=== PATIENT | male | born 1950 | race Caucasian/White ===

== ENCOUNTER → 2017-07-30 | Outpatient (CLI) | payer BC, MEDICARE ==
[~2017-07-30] MED LIST: ALBUTEROL0.09 MG/A2 INH; AMARYL4 MG; AMARYL4 MG PO; ASCRIPTIN ENTER81 MG PO; ATIVAN0.5 MG PO; BYETTA10 MCG/0.0; BYETTA5 MCG/0.02 PO; CARTIA XT120 MG PO; CARTIA XT180 MG PO; CEPHALEXIN500 M1 PO; COUMADIN6 M2 PO; COZAAR50 M1 PO; COZAAR50 MG; COZAAR50 MG PO; Cimetidine300 MG PO; DUONEB 3 MG/3 ML3 M1 NEB; EC NAPROSYN500 MG PO; GLUCOVANCE 5 MG1 TAB PO; GLYBURIDE5 MG PO; IBUPROFEN600 MG PO; KLOR-CON 88 ME1 PO; LASIX40 MG PO; LEVAQUIN500 M2 PO; LEVEMIR10 ML SC; LEVEMIR100 U/ML SC; LODINE400 MG PO; MAXIDE PO; MAXZIDE 25 MG-31 TAB PO; METFORMIN500 MG PO; MOTRIN 600 MG E4 TAB PO; NOVOLOG1 UNIT/0.0 SC; PROTONIX40 MG PO; Septra Ds 800 M1 TAB PO; TOPROL XL25 MG PO; ULTRAM50 MG PO; VIBRAMYCIN100 MG PO; VICODIN 5/500 505 MG PO; VICODIN ES 7501 TA1; VICODIN ES 7501 TAB PO; WARFARIN SOD5 MG PO; ZOCOR20 MG; ZOCOR20 MG PO; [UNRECOGNIZED DRUG - OTHER]; [UNRECOGNIZED DRUG - OTHER] PO
[2017-07-30 15:53] LABS: INTERNATIONAL NORM RATIO 1.1 (2.0-3.5)
== END | disposition home or self-care (01) ==
LOC: LAB 14:47
PROVIDERS: Internal Medicine
DX: I48.91 Unspecified atrial fibrillation (principal)

== ENCOUNTER 2017-11-19 12:35 | Emergency (ER) | payer BC, MEDICARE ==
[~2017-11-19] VITALS: Ht 185.4 cm; Wt 124.3 kg
[2017-11-19 12:54] VITALS: BP 124/58
[2017-11-19] MEDS ORDERED: IBUPROFEN IB200 M1 PO (13:00)
[2017-11-19] MEDS ORDERED: WARFARIN SODIUM1 MG PO (13:02)
[2017-11-19] MEDS ORDERED: MIRALAX POWDER17 G1 PO (14:37)
== END 2017-11-19 14:45 | disposition home or self-care (01) ==
LOC: ED 12:35
DX: K59.00 Constipation, unspecified (principal); Z79.899 Other long term (current) drug therapy; Z79.82 Long term (current) use of aspirin; Z79.84 Long term (current) use of oral hypoglycemic drugs; Z79.4 Long term (current) use of insulin; Z79.01 Long term (current) use of anticoagulants

== ENCOUNTER 2018-02-05 22:29 | Inpatient (IN) | payer MEDICARE, BC ==
[~2018-02-05] VITALS: Ht 193 cm; Wt 123.9 kg
--- NOTE | ~2018-02-05 | PROC NOTE ---
[place], [place] PROCEDURE NOTE NAME: ANNEL BABCOCK UNIT #: [id number] ROOM: 407 DOCTOR: SOFI MENG MD BIRTHDATE: [birth year] DOS: 02/11/2018 NILTON-GUIDED CARDIOVERSION AGE: 67. SEX: Male. PREPROCEDURE DIAGNOSIS: Atrial flutter with 2:1 block. PROCEDURE: Cardioversion ____ for arrhythmia control. Prior tests include anticoagulated. PRIMARY PROCEDURE: Written informed consent was obtained prior to the procedure. The NILTON was performed under stable fasting conditions. Self adhesive anterior/posterior defibrillation pads were applied. The defibrillation was performed to deliver energy in a synchronized fashion with the EKG. The patient was set up for monitoring of surface EKG and pulse oximetry continuously. Blood pressure was monitored with automatic cuff measurements. Supplemental oxygen was administered. The procedure was performed under anesthesia by Anesthesiology. After ensuring adequate anesthesia, direct current cardioversion was performed by delivering 200 joules of direct current delivered in a synchronized fashion. RESULTS: Successful cardioversion to sinus rhythm and confirmed on the rhythm strip. COMPLICATIONS: None. The patient was monitored until awake and vital signs remained stable. Sofi Meng MD CM:PROCNOTE:PROCEDURE NOTE 1152 1716 SOFI MENG MD
--- NOTE | ~2018-02-05 | CON ---
[place], [place] REPORT OF CONSULTATION NAME: ANNEL BABCOCK UNIT #: [id number] ROOM: 407 DOCTOR: ANNEL DAVENPORT MD BIRTHDATE: [birth year] DOS: 02/06/2018 REASON FOR CONSULTATION: Atrial fibrillation with rapid ventricular response and heart failure. HISTORY OF PRESENT ILLNESS: The patient is a 67-year-old man who reports that he was initially diagnosed as having heart disease in 1996 when he presented with chest pain and was found to have evidence for myocardial infarction. He was sent to the [facility] in [place], [place] where catheterization reportedly did not show any significant disease. He was treated medically. Subsequently, he did develop atrial fibrillation around 2013. He has been maintained on warfarin anticoagulation, followed by Dr. Miles since that time. The patient does not followed routinely with a label cutter. He presents to the hospital on this occasion because of worsening dyspnea, cough and possible bronchitis. Associated with this he has had increased swelling in his feet, orthopnea and rib pain with deep breathing and coughing. He denies a productive cough and denies fevers or chills. He does often sweat heavily, but this is not new. Since he has been in the hospital, he has been treated for acute bronchitis and states that he is feeling better. His monitor has showed atrial fibrillation and flutter with a rapid ventricular response and he has clinical evidence for congestive heart failure. PAST MEDICAL HISTORY: Includes: 1. Myocardial infarction in 1996. The patient managed medically. 2. Diabetes mellitus. 3. Chronic renal insufficiency. 4. Obstructive lung disease. 5. Atrial fibrillation documented in 2013. 6. Essential hypertension. 7. Former smoker. The patient has not had cigarettes or alcohol in 4 years. 8. History of horseshoe kidney. 9. Chronic renal insufficiency. 10. Most recent myocardial perfusion study done on 06/25/2014 showed normal perfusion with an ejection fraction of 71%. 11. Most recent echocardiogram done on 06/22/2014 showed aortic root dilation with left ventricular hypertrophy present. Left ventricular and valve functions were felt to be normal. 12. Medication noncompliance. The patient's INR was 0.9 on admission and he admits that he does not take it always as prescribed. MEDICATIONS PRIOR TO ADMISSION: Albuterol 2 puffs q. 6 hours p.r.n., aspirin 81 mg per day, azithromycin, Z-HAYLIE 250 mg daily, furosemide 40 mg daily, glyburide 5 mg at breakfast and supper, ibuprofen 600 mg b.i.d. p.r.n., losartan 50 mg daily, metformin 500 mg b.i.d., metoprolol succinate 25 mg daily, potassium 8 mEq daily, prednisone on a tapering dose schedule, tramadol 50 mg b.i.d., warfarin 6 mg daily, Levemir insulin 35 units subcutaneously in the evening and 20 units subcutaneously in the morning. [place], [place] REPORT OF CONSULTATION NAME: ANNEL BABCOCK UNIT #: [id number] ROOM: 407 DOCTOR: ANNEL DAVENPORT MD BIRTHDATE: [birth year] ALLERGIES: He lists an allergy to DILTIAZEM, which has caused a rash and hives in the past. FAMILY HISTORY: Negative for early coronary artery disease. His father had an aneurysm, hypertension and diabetes. His mother had diabetes. Both are . REVIEW OF SYSTEMS: The patient denies diplopia or loss of vision. He denies lightheadedness or syncope. He has had a cough, which has been minimally productive. He denies fevers, chills or sweats. He has had worsening dyspnea along with peripheral edema. He denies nausea or vomiting. He denies hemoptysis or hematemesis. He denies bleeding from his bowels or urine. He does admit that he does not always take his warfarin as prescribed. He denies any change in bowel or bladder habits. He denies any skin rashes prior to admission, but does have hives since he has been on DILTIAZEM. He denies heat or cold intolerance and denies polyuria or polydipsia. The remainder of the review of systems is negative except as noted above. SOCIAL HISTORY: The patient is and lives with his . 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 He was a smoker and did consume alcohol, but quit both 4 years ago. PHYSICAL EXAMINATION: GENERAL: Reveals an overweight white male who is awake, alert and oriented. VITAL SIGNS: Pulse is 120 and mostly regular, blood pressure is 120/76. He is afebrile. He weighs 122.5 kg and has a body mass index of 32.9. HEENT: Normocephalic and atraumatic. Extraocular muscles are intact. Sclerae are clear. Pupils are equal, round and react to light. The oral mucosa is moist. Tongue is midline. NECK: Supple. He has no jugular distention. Carotids are full. I heard no bruits. He had no neck or supraclavicular masses and no thyromegaly. LUNGS: Respirations are unlabored. His chest has markedly diminished breath sounds bilaterally. He has no obvious wheezes or rales. He has no presacral edema or chest wall tenderness. CARDIOVASCULAR: His heart has a fairly regular rhythm. No murmurs or gallops are heard. The PMI is not displaced. There is no precordial heave, lift or thrill. ABDOMEN: Obese, but otherwise benign, without masses, organomegaly or bruits. EXTREMITIES: Showed 2+ edema to the knees. Pedal pulses are diminished, but palpable in the feet. LABORATORY DATA: Electrocardiogram shows atrial fibrillation and flutter with a variable AV block. No acute ST or T-wave changes are seen. IMPRESSION: 1. Acute on chronic diastolic congestive heart failure. 2. Remote history of myocardial infarction. The patient's most recent stress test about 3-1/2 years ago showed no evidence for ischemia, with normal left ventricular systolic function. [place], [place] REPORT OF CONSULTATION NAME: ANNEL BABCOCK UNIT #: [id number] ROOM: 407 DOCTOR: ANNEL DAVENPORT MD BIRTHDATE: [birth year] 3. Essential hypertension. 4. Type 2 diabetes mellitus. 5. Obstructive lung disease. 6. Former smoker. 7. Medication noncompliance with warfarin. 8. Allergy to DILTIAZEM with urticarial reaction. At the present time, the patient's heart rate is not well controlled. We cannot use DILTIAZEM anymore because he is getting a rash and has had an allergy to that in the past. We will increase his beta erasmo and continue to observe him as his underlying lung disease is treated. 9. Acute exacerbation of chronic obstructive pulmonary disease. 10. Obesity. 11. Type 2 diabetes mellitus. 12. Essential hypertension. 13. Chronic obstructive pulmonary disease. 14. Chronic renal insufficiency. 15. Possible history of coronary artery disease. PLAN: We will continue to slow his rate with metoprolol only and stop DILTIAZEM. He will be diuresed if needed. We will obtain an echocardiogram to help reassess his left ventricular function. No other cardiac workup is planned at this time. Until he becomes therapeutic with his INR, I would like him on a heparin drip, especially since he does have a history of renal insufficiency. I thank the hospitalist physicians for asking our advice regarding his care. ANNEL DAVENPORT MD CM:CONSTR:REPORT OF CONSULTATION 1406 02/06/18 1527 interface
[2018-02-05 22:29] VITALS: BP 136/73
[~2018-02-05 22:29] MED LIST changes: +IBUPROFEN IB200 M1 PO; +LEVEMIR100 UNIT/1 SC; +MIRALAX POWDER17 G1 PO; +WARFARIN SODIUM1 MG PO
[2018-02-05] MEDS ORDERED: PREDNISONE10 MG PO (22:39)
[2018-02-05] MEDS ORDERED: LEVEMIR100 UNIT/1 SC (22:39)
[2018-02-05] MEDS ORDERED: AVPAK AZITHROM250 M1 PO (22:40)
[2018-02-05] MEDS ORDERED: FLUTICASONE PRO15 GM NAS (22:40)
[2018-02-05 23:00] VITALS: BP 103/59
[2018-02-05 23:50] VITALS: BP 110/60; BP 125/52
[2018-02-06] VITALS (8 sets, daily range): BP systolic 113–136; BP diastolic 73–90
[2018-02-06 00:10] LABS: BASO % 0.4 % (0.0-1.0); EOS # 0.1 10*3/uL (0.0-0.4); HEMATOCRIT 44.4 % (42.0-52.0); HEMOGLOBIN 14.2 g/dl (14.0-18.0); LYMPH # 0.9 10*3/uL (1.3-4.4); LYMPH % 11.4 % (27.0-41.0); MEAN CELL VOLUME 97.4 fl (80.0-94.0); MEAN CORPUSCULAR HGB 31.1 pg (27.0-31.0); MEAN PLATELET VOLUME 11.9 fl (9.6-12.3); MONO # 1.3 10*3/uL (0.1-1.0); MONO % 15.9 % (3.0-9.0); NEUT # 5.6 10*3/uL (2.3-7.9); NEUT % 70.7 % (47.0-73.0); PLATELET COUNT AUTOMATED 135 10*3/uL (130-400); RED BLOOD COUNT 4.56 10*6/uL (4.50-5.90); RED CELL DISTRI WIDTH 13.8 % (0-14.5); WHITE BLOOD COUNT 7.9 10*3/uL (4.8-10.8)
[2018-02-06 00:31] LABS: ALKALINE PHOSPHATASE 147 U/L (45-117); BUN 26 mg/dl (7-24); CHLORIDE 104 mmol/L (98-107); CREATININE 1.58 mg/dL (0.70-1.30); POTASSIUM 4.6 mmol/L (3.5-5.1); SGOT/AST 14 IU/L (3-35); SGPT/ALT 35 U/L (12-78); SODIUM 138 mmol/L (136-145); TOTAL PROTEIN 7.4 gm/dL (6.4-8.2)
[2018-02-06 00:41] LABS: TROPONIN I < 0.015 ng/ml (<0.045)
[2018-02-06 06:05] LABS: HEMATOCRIT 45.5 % (42.0-52.0); HEMOGLOBIN 14.2 g/dl (14.0-18.0); MEAN CELL VOLUME 98.5 fl (80.0-94.0); MEAN CORPUSCULAR HGB 30.7 pg (27.0-31.0); MEAN CORPUSCULAR HGB CONC 31.2 g/dl (33.0-37.0); MEAN PLATELET VOLUME 12.3 fl (9.6-12.3); PLATELET COUNT AUTOMATED 129 10*3/uL (130-400); RED BLOOD COUNT 4.62 10*6/uL (4.50-5.90); RED CELL DISTRI WIDTH 13.7 % (0-14.5); WHITE BLOOD COUNT 6.5 10*3/uL (4.8-10.8)
[2018-02-06 06:31] LABS: ALBUMIN 2.9 gm/dl (3.1-4.5); CREATININE 1.74 mg/dL (0.70-1.30); PHOSPHOROUS 3.2 mg/dL (2.5-4.9); POTASSIUM 4.7 mmol/L (3.5-5.1)
[2018-02-06 06:34] LABS: ACT PARTIAL THROMBO TIME 21.5 SECONDS (20.8-31.5); INTERNATIONAL NORM RATIO 0.9 (2.0-3.5)
[2018-02-06 06:38] LABS: FREE T4 1.25 ng/dl (0.76-1.46); THYROID STIM HORMONE (HS) 0.481 uIU/ml (0.358-4.75); TOTAL PROTEIN 7.4 gm/dL (6.4-8.2)
[2018-02-06 07:02] LABS: ATYPICAL LYMPHS 1 % (0-0); TOTAL CELLS COUNTED 100 #CELLS
[2018-02-06 07:03] LABS: PLATELET SUFFICIENCY LOW (NORMAL)
[2018-02-06 07:53] LABS: VITAMIN D, 25-HYDROXY 10.5 ng/mL (30-100)
[2018-02-06 09:16] LABS: BILIRUBIN NEGATIVE (NEGATIVE); BLOOD NEGATIVE (NEGATIVE); CLARITY CLEAR (CLEAR); COLOR YELLOW (YELLOW); GLUCOSE 3+ (NEGATIVE); KETONE NEGATIVE (NEGATIVE); LEUKO ESTERASE TRACE (NEGATIVE); NITRITE NEGATIVE (NEGATIVE); UROBILINOGEN 0.2 E.U./dl (0.2-1.0)
[2018-02-06 09:37] LABS: RBC 0-2 rbc/hpf (0-2); YEAST 2+
[2018-02-07] VITALS (9 sets, daily range): BP systolic 119–136; BP diastolic 72–93
[2018-02-07 06:10] LABS: BASO % 0.3 % (0.0-1.0); HEMATOCRIT 45.6 % (42.0-52.0); HEMOGLOBIN 15.1 g/dl (14.0-18.0); LYMPH # 0.7 10*3/uL (1.3-4.4); LYMPH % 9.6 % (27.0-41.0); MEAN CELL VOLUME 95.8 fl (80.0-94.0); MEAN CORPUSCULAR HGB 31.7 pg (27.0-31.0); MEAN CORPUSCULAR HGB CONC 33.1 g/dl (33.0-37.0); MEAN PLATELET VOLUME 11.7 fl (9.6-12.3); MONO # 0.7 10*3/uL (0.1-1.0); MONO % 9.4 % (3.0-9.0); NEUT # 5.9 10*3/uL (2.3-7.9); NEUT % 79.5 % (47.0-73.0); PLATELET COUNT AUTOMATED 156 10*3/uL (130-400); RED BLOOD COUNT 4.76 10*6/uL (4.50-5.90); RED CELL DISTRI WIDTH 13.5 % (0-14.5); WHITE BLOOD COUNT 7.4 10*3/uL (4.8-10.8)
[2018-02-07 06:18] LABS: ACT PARTIAL THROMBO TIME 24.2 SECONDS (20.8-31.5)
[2018-02-07 06:21] LABS: CREATININE 1.81 mg/dL (0.70-1.30); PHOSPHOROUS 3.4 mg/dL (2.5-4.9); POTASSIUM 4.6 mmol/L (3.5-5.1); TOTAL PROTEIN 7.9 gm/dL (6.4-8.2)
[2018-02-08] VITALS: BP 127/82
[2018-02-08 04:00] VITALS: BP 120/82
[2018-02-08 06:23] LABS: BASO % 0.2 % (0.0-1.0); HEMOGLOBIN 14.9 g/dl (14.0-18.0); LYMPH # 0.8 10*3/uL (1.3-4.4); LYMPH % 7.1 % (27.0-41.0); MEAN CELL VOLUME 95.4 fl (80.0-94.0); MEAN CORPUSCULAR HGB 30.9 pg (27.0-31.0); MEAN CORPUSCULAR HGB CONC 32.4 g/dl (33.0-37.0); MEAN PLATELET VOLUME 12.3 fl (9.6-12.3); MONO # 1.1 10*3/uL (0.1-1.0); MONO % 9.6 % (3.0-9.0); NEUT # 9.3 10*3/uL (2.3-7.9); NEUT % 81.3 % (47.0-73.0); NUCLEATED RED BLOOD CELL 0.3 % (0.0-0.0); PLATELET COUNT AUTOMATED 189 10*3/uL (130-400); RED BLOOD COUNT 4.82 10*6/uL (4.50-5.90); RED CELL DISTRI WIDTH 13.7 % (0-14.5); WHITE BLOOD COUNT 11.4 10*3/uL (4.8-10.8)
[2018-02-08 06:25] LABS: CREATININE 1.78 mg/dL (0.70-1.30); POTASSIUM 3.7 mmol/L (3.5-5.1)
[2018-02-08 06:35] LABS: ACT PARTIAL THROMBO TIME 30.7 SECONDS (20.8-31.5)
[2018-02-08 08:00] VITALS: BP 144/91
[2018-02-08 12:00] VITALS: BP 122/71
[2018-02-08 16:00] VITALS: BP 127/81
[2018-02-08 20:00] VITALS: BP 107/78
[2018-02-09] VITALS (8 sets, daily range): BP systolic 108–146; BP diastolic 50–90
[2018-02-09 07:08] LABS: BASO % 0.5 % (0.0-1.0); EOS % 0.1 % (1.0-4.0); HEMOGLOBIN 15.7 g/dl (14.0-18.0); LYMPH # 0.6 10*3/uL (1.3-4.4); MEAN CORPUSCULAR HGB 31.4 pg (27.0-31.0); MEAN CORPUSCULAR HGB CONC 32.7 g/dl (33.0-37.0); MEAN PLATELET VOLUME 11.5 fl (9.6-12.3); MONO # 0.5 10*3/uL (0.1-1.0); MONO % 6.1 % (3.0-9.0); NEUT # 6.1 10*3/uL (2.3-7.9); NEUT % 82.7 % (47.0-73.0); PLATELET COUNT AUTOMATED 142 10*3/uL (130-400); RED CELL DISTRI WIDTH 13.7 % (0-14.5); WHITE BLOOD COUNT 7.4 10*3/uL (4.8-10.8)
[2018-02-09 07:10] LABS: INTERNATIONAL NORM RATIO 1.3 (2.0-3.5)
[2018-02-09 07:48] LABS: CREATININE 1.9 mg/dL (0.70-1.30)
[2018-02-09 07:49] LABS: POTASSIUM 4.7 mmol/L (3.5-5.1)
[2018-02-10] VITALS (9 sets, daily range): BP systolic 113–146; BP diastolic 76–98
[2018-02-10 07:24] LABS: INTERNATIONAL NORM RATIO 1.3 (2.0-3.5)
[2018-02-10 07:37] LABS: ALBUMIN 2.8 gm/dl (3.1-4.5); CREATININE 1.58 mg/dL (0.70-1.30); POTASSIUM 3.9 mmol/L (3.5-5.1); TOTAL PROTEIN 6.9 gm/dL (6.4-8.2)
[2018-02-10 11:02] LABS: POTASSIUM 4.6 mmol/L (3.5-5.1)
[2018-02-10 11:22] LABS: HEMATOCRIT 47.6 % (42.0-52.0); HEMOGLOBIN 14.9 g/dl (14.0-18.0); MEAN CELL VOLUME 96.6 fl (80.0-94.0); MEAN CORPUSCULAR HGB 30.2 pg (27.0-31.0); MEAN CORPUSCULAR HGB CONC 31.3 g/dl (33.0-37.0); MEAN PLATELET VOLUME 11.4 fl (9.6-12.3); PLATELET COUNT AUTOMATED 157 10*3/uL (130-400); RED BLOOD COUNT 4.93 10*6/uL (4.50-5.90); RED CELL DISTRI WIDTH 13.7 % (0-14.5); WHITE BLOOD COUNT 8.6 10*3/uL (4.8-10.8)
[2018-02-10 11:27] LABS: ACT PARTIAL THROMBO TIME 21.5 SECONDS (20.8-31.5); INTERNATIONAL NORM RATIO 1.3 (2.0-3.5)
[2018-02-10 11:49] LABS: PLATELET SUFFICIENCY NORMAL (NORMAL); TOTAL CELLS COUNTED 100 #CELLS
[2018-02-11] VITALS (7 sets, daily range): BP systolic 102–144; BP diastolic 69–96
[2018-02-11] MEDS ORDERED: ELIQUIS5 M1 PO (11:46)
[2018-02-11] MEDS ORDERED: METOPROLOL SUC100 M1 PO (11:46)
[2018-02-11] MEDS ORDERED: LASIX40 MG PO (11:46)
[2018-02-11] MEDS ORDERED: PACERONE200 MG PO ×2 (11:46)
[2018-02-11 13:44] LABS: CREATININE 1.76 mg/dL (0.70-1.30); POTASSIUM 4.4 mmol/L (3.5-5.1)
[2018-02-11] MEDS ORDERED: LEVEMIR100 UNIT/1 SC ×2 (13:56)
[2018-02-11] MEDS ORDERED: LEVAQUIN750 M1 PO (13:56)
[2018-02-11] MEDS ORDERED: PREDNISONE10 MG PO (13:56)
== END 2018-02-11 18:42 | disposition home or self-care (01) | DRG 682 ==
LOC: ED 22:29 → 4E 02-06 01:49 → EDHOLD 02-06 01:49 → 4E 02-06 01:57
PROVIDERS: Family Medicine; Internal Medicine; Internal Medicine Cardiovascular Disease; Internal Medicine Hospice and Palliative Medicine; Internal Medicine Nephrology; Nurse Practitioner
PROC: 0HBEXZZ Excision of Left Lower Arm Skin, External Approach (ICD-10-PCS; principal; 2018-02-07)
PROC: 4A02XM4 Measurement of Cardiac Total Activity, External Approach (ICD-10-PCS; 2018-02-08)
PROC: 3E073KZ Introduction of Other Diagnostic Substance into Coronary Artery, Percutaneous Approach (ICD-10-PCS; 2018-02-08)
PROC: 5A2204Z Restoration of Cardiac Rhythm, Single (ICD-10-PCS; 2018-02-11)
PROC: B24BZZ4 Ultrasonography of Heart with Aorta, Transesophageal (ICD-10-PCS; 2018-02-11)
DX: N17.0 Acute kidney failure with tubular necrosis (principal); A41.9 Sepsis, unspecified organism; J96.01 Acute respiratory failure with hypoxia; E43 Unspecified severe protein-calorie malnutrition; I50.43 Acute on chronic combined systolic (congestive) and diastolic (congestive) heart failure; D68.59 Other primary thrombophilia; E11.22 Type 2 diabetes mellitus with diabetic chronic kidney disease; J18.9 Pneumonia, unspecified organism; L03.113 Cellulitis of right upper limb; J44.1 Chronic obstructive pulmonary disease with (acute) exacerbation; I13.0 Hypertensive heart and chronic kidney disease with heart failure and stage 1 through stage 4 chronic kidney disease, or unspecified chronic kidney disease; J44.0 Chronic obstructive pulmonary disease with (acute) lower respiratory infection; I48.92 Unspecified atrial flutter; E87.1 Hypo-osmolality and hyponatremia; D69.6 Thrombocytopenia, unspecified; E11.65 Type 2 diabetes mellitus with hyperglycemia; N18.3 Chronic kidney disease, stage 3 (moderate); E55.9 Vitamin D deficiency, unspecified; L98.9 Disorder of the skin and subcutaneous tissue, unspecified; D75.89 Other specified diseases of blood and blood-forming organs; I45.10 Unspecified right bundle-branch block; I25.10 Atherosclerotic heart disease of native coronary artery without angina pectoris; I48.2 Chronic atrial fibrillation; E87.8 Other disorders of electrolyte and fluid balance, not elsewhere classified; E66.09 Other obesity due to excess calories; I25.2 Old myocardial infarction; Z87.442 Personal history of urinary calculi; Z87.891 Personal history of nicotine dependence; Z79.01 Long term (current) use of anticoagulants; Z79.4 Long term (current) use of insulin; Z79.82 Long term (current) use of aspirin; Z68.33 Body mass index [BMI] 33.0-33.9, adult; Z91.14 Patient's other noncompliance with medication regimen; Z79.84 Long term (current) use of oral hypoglycemic drugs; Z79.899 Other long term (current) drug therapy; Z79.51 Long term (current) use of inhaled steroids; Z88.8 Allergy status to other drugs, medicaments and biological substances; Z82.49 Family history of ischemic heart disease and other diseases of the circulatory system; Z83.3 Family history of diabetes mellitus; T38.0X5A Adverse effect of glucocorticoids and synthetic analogues, initial encounter; Y92.89 Other specified places as the place of occurrence of the external cause

== ENCOUNTER 2018-03-30 11:22 | Inpatient (IN) | payer MEDICARE, BC ==
[~2018-03-30] VITALS: Ht 185.4 cm; Wt 115.5 kg
[~2018-03-30 11:22] MED LIST changes: +AVPAK AZITHROM250 M1 PO; +ELIQUIS5 M1 PO; +FLUTICASONE PRO15 GM NAS; +LEVAQUIN750 M1 PO; +METOPROLOL SUC100 M1 PO; +PACERONE200 MG PO; +PREDNISONE10 MG PO
[2018-03-30 11:23] VITALS: BP 115/85
[2018-03-30 12:16] VITALS: BP 95/60
[2018-03-30 12:31] LABS: BASO # 0.1 10*3/uL (0.0-0.1); BASO % 0.8 % (0.0-1.0); EOS # 0.6 10*3/uL (0.0-0.4); EOS % 6.8 % (1.0-4.0); HEMOGLOBIN 16.4 g/dl (14.0-18.0); LYMPH # 1.9 10*3/uL (1.3-4.4); LYMPH % 21.8 % (27.0-41.0); MEAN CELL VOLUME 94.9 fl (80.0-94.0); MEAN CORPUSCULAR HGB 31.1 pg (27.0-31.0); MEAN CORPUSCULAR HGB CONC 32.8 g/dl (33.0-37.0); MEAN PLATELET VOLUME 11.4 fl (9.6-12.3); MONO % 10.8 % (3.0-9.0); NEUT # 5.3 10*3/uL (2.3-7.9); NEUT % 59.3 % (47.0-73.0); PLATELET COUNT AUTOMATED 142 10*3/uL (130-400); RED BLOOD COUNT 5.27 10*6/uL (4.50-5.90); RED CELL DISTRI WIDTH 15.3 % (0-14.5); WHITE BLOOD COUNT 8.9 10*3/uL (4.8-10.8)
[2018-03-30 12:39] LABS: ACT PARTIAL THROMBO TIME 22.3 SECONDS (20.8-31.5)
[2018-03-30 12:46] LABS: ALBUMIN 3.5 gm/dl (3.1-4.5); ALKALINE PHOSPHATASE 110 U/L (45-117); BUN 29 mg/dl (7-24); CHLORIDE 102 mmol/L (98-107); CREATININE 1.97 mg/dL (0.70-1.30); POTASSIUM 4.1 mmol/L (3.5-5.1); SGOT/AST 23 IU/L (3-35); SGPT/ALT 38 U/L (12-78); SODIUM 139 mmol/L (136-145); TOTAL PROTEIN 7.7 gm/dL (6.4-8.2)
[2018-03-30 12:50] LABS: TROPONIN I < 0.015 ng/ml (<0.045)
[2018-03-30 13:04] LABS: BILIRUBIN NEGATIVE (NEGATIVE); BLOOD 1+ (NEGATIVE); CLARITY SL CLOUDY (CLEAR); COLOR YELLOW (YELLOW); GLUCOSE 2+ (NEGATIVE); KETONE NEGATIVE (NEGATIVE); LEUKO ESTERASE 1+ (NEGATIVE); NITRITE NEGATIVE (NEGATIVE); SPECIFIC GRAVITY 1.015 (1.005-1.030); UROBILINOGEN 0.2 E.U./dl (0.2-1.0)
[2018-03-30 13:27] LABS: EPITHELIAL CELLS 15-20; WBC 21-30 wbc/hpf (0-5)
[2018-03-30 13:28] LABS: BACTERIA 2+
[2018-03-30 13:47] VITALS: BP 80/54
[2018-03-30 14:43] VITALS: BP 94/70
[2018-03-30 16:00] VITALS: BP 101/78
[2018-03-30] MEDS ORDERED: LASIX40 MG PO (17:14)
[2018-03-30] MEDS ORDERED: TOPROL XL50 M1 PO (17:15)
[2018-03-30] MEDS ORDERED: NOVOLOG MI100 UNIT/2 SQ ×2 (17:16)
[2018-03-30 20:00] VITALS: BP 96/69
[2018-03-31] VITALS: BP 98/64
[2018-03-31 06:19] LABS: BASO % 0.5 % (0.0-1.0); EOS # 0.4 10*3/uL (0.0-0.4); EOS % 4.6 % (1.0-4.0); HEMATOCRIT 47.2 % (42.0-52.0); HEMOGLOBIN 15.1 g/dl (14.0-18.0); LYMPH # 1.9 10*3/uL (1.3-4.4); MEAN CELL VOLUME 96.3 fl (80.0-94.0); MEAN CORPUSCULAR HGB 30.8 pg (27.0-31.0); MEAN PLATELET VOLUME 10.8 fl (9.6-12.3); MONO # 0.9 10*3/uL (0.1-1.0); MONO % 10.7 % (3.0-9.0); NEUT % 60.8 % (47.0-73.0); PLATELET COUNT AUTOMATED 110 10*3/uL (130-400); RED CELL DISTRI WIDTH 15.4 % (0-14.5); WHITE BLOOD COUNT 8.2 10*3/uL (4.8-10.8)
[2018-03-31 06:38] LABS: ALBUMIN 3.2 gm/dl (3.1-4.5); CREATININE 2.22 mg/dL (0.70-1.30); PHOSPHOROUS 3.6 mg/dL (2.5-4.9); POTASSIUM 4.4 mmol/L (3.5-5.1); TOTAL PROTEIN 6.9 gm/dL (6.4-8.2)
[2018-03-31 06:45] LABS: FREE T4 1.11 ng/dl (0.76-1.46); THYROID STIM HORMONE (HS) 2.97 uIU/ml (0.358-4.75)
[2018-03-31 08:00] VITALS: BP 120/46
[2018-03-31 12:00] VITALS: BP 102/65
[2018-03-31 16:00] VITALS: BP 110/67
[2018-03-31 20:00] VITALS: BP 110/59
[2018-04-01] VITALS: BP 110/63
[2018-04-01 06:44] LABS: BASO % 0.1 % (0.0-1.0); HEMATOCRIT 45.9 % (42.0-52.0); LYMPH # 1.2 10*3/uL (1.3-4.4); LYMPH % 15.3 % (27.0-41.0); MEAN CELL VOLUME 94.8 fl (80.0-94.0); MEAN CORPUSCULAR HGB CONC 32.7 g/dl (33.0-37.0); MEAN PLATELET VOLUME 11.7 fl (9.6-12.3); MONO # 0.4 10*3/uL (0.1-1.0); MONO % 5.3 % (3.0-9.0); NEUT % 78.8 % (47.0-73.0); PLATELET COUNT AUTOMATED 132 10*3/uL (130-400); RED BLOOD COUNT 4.84 10*6/uL (4.50-5.90); RED CELL DISTRI WIDTH 15.2 % (0-14.5); WHITE BLOOD COUNT 7.6 10*3/uL (4.8-10.8)
[2018-04-01 07:17] LABS: CREATININE 1.96 mg/dL (0.70-1.30); POTASSIUM 5.1 mmol/L (3.5-5.1)
[2018-04-01 08:00] VITALS: BP 108/52
[2018-04-01 12:00] VITALS: BP 123/64
[2018-04-01] MEDS ORDERED: PREDNISONE20 M1 PO (12:32)
[2018-04-01] MEDS ORDERED: NORCO 5-325 TA1 EACH PO (12:32)
[2018-04-01] MEDS ORDERED: AMOXICILLIN500 M3 PO (12:49)
== END 2018-04-01 14:40 | disposition home or self-care (01) | DRG 314 ==
LOC: ED 11:22 → 5E 14:09 → EDHOLD 14:09 → 5E 14:30
PROVIDERS: Emergency Medicine; Family Medicine; Internal Medicine
DX: I95.9 Hypotension, unspecified (principal); N17.0 Acute kidney failure with tubular necrosis; D68.59 Other primary thrombophilia; E11.22 Type 2 diabetes mellitus with diabetic chronic kidney disease; I13.0 Hypertensive heart and chronic kidney disease with heart failure and stage 1 through stage 4 chronic kidney disease, or unspecified chronic kidney disease; I50.42 Chronic combined systolic (congestive) and diastolic (congestive) heart failure; E11.65 Type 2 diabetes mellitus with hyperglycemia; I48.91 Unspecified atrial fibrillation; N18.3 Chronic kidney disease, stage 3 (moderate); N30.00 Acute cystitis without hematuria; M54.41 Lumbago with sciatica, right side; F10.21 Alcohol dependence, in remission; G89.29 Other chronic pain; J44.9 Chronic obstructive pulmonary disease, unspecified; E55.9 Vitamin D deficiency, unspecified; I25.10 Atherosclerotic heart disease of native coronary artery without angina pectoris; E66.09 Other obesity due to excess calories; Z68.33 Body mass index [BMI] 33.0-33.9, adult; Z88.8 Allergy status to other drugs, medicaments and biological substances; Z79.2 Long term (current) use of antibiotics; Z79.01 Long term (current) use of anticoagulants; Z79.84 Long term (current) use of oral hypoglycemic drugs; Z79.4 Long term (current) use of insulin; Z79.899 Other long term (current) drug therapy; I25.2 Old myocardial infarction; Z87.442 Personal history of urinary calculi; Z87.891 Personal history of nicotine dependence; Z82.49 Family history of ischemic heart disease and other diseases of the circulatory system; Z83.3 Family history of diabetes mellitus; Z80.9 Family history of malignant neoplasm, unspecified; Z82.3 Family history of stroke

== ENCOUNTER → 2018-04-04 | Outpatient (CLI) | payer BC ==
[~2018-04-04] MED LIST changes: +AMOXICILLIN500 M3 PO; +NORCO 5-325 TA1 EACH PO; +NOVOLOG MI100 UNIT/2 SQ; +PREDNISONE20 M1 PO; +TOPROL XL50 M1 PO
[2018-04-04 07:46] LABS: BUN 26 mg/dl (7-24); CHLORIDE 108 mmol/L (98-107); CREATININE 1.28 mg/dL (0.70-1.30); POTASSIUM 4.2 mmol/L (3.5-5.1); SODIUM 145 mmol/L (136-145)
== END | disposition home or self-care (01) ==
LOC: LAB 06:54
PROVIDERS: Emergency Medicine
DX: N17.0 Acute kidney failure with tubular necrosis (principal)

== ENCOUNTER 2018-05-11 14:20 | Inpatient (IN) | payer MEDICARE, BC ==
[2018-05-11] VITALS (7 sets, daily range): BP systolic 81–119; BP diastolic 37–65
[~2018-05-11] VITALS: Ht 188 cm; Wt 117.5 kg
--- NOTE | ~2018-05-11 | O ---
[place], [place] OPERATIVE NOTE [facility]: [id number] UN[facility] #: [id number] [facility]OM: [facility] DOCTOR[facility] [birth year] DOS: 05/13/2018 HISTORY OF PRESENT ILLNESS: A 68-year-old who has presented with chief complaint of GI bleed at the time of admission, his H and H was 8 and 25.6. He was on Eliquis and aspirin that is placed on hold. His lactic acid was 3.2. His comprehensive metabolic panel. BUN and creatinine elevation of 84 and 2.8. GFR of 39. His liver function test was normal. CT scan of the head with contrast, no acute findings noticed. He received transfusion of 1 unit packed cells. PAST MEDICAL HISTORY: Associated with congestive heart failure, coronary artery disease, chronic renal failure, COPD, morbid obesity, renal insufficiency, renal lithiasis, myocardial infarction history. PAST SURGICAL HISTORY: Cardiac catheterization, lower back surgery, and cardioversion. SOCIAL HISTORY: Nonsmoker, nonalcohol consumer at the present time; however, he was pack and a half smoker with history FAMILY HISTORY: Hypertension and diabetes. ALLERGIES: DILTIAZEM. Medication at home was reviewed including Eliquis and aspirin in addition to others that reviewed. His procedure part of investigation is panendoscopy plus biopsy. PREMEDICATIONS: Propofol. SCOPE: Olympus forward-viewing gastroscope, Q10 video. REPORT: After putting the patient in left lateral position and application of lubricant to the scope, the scope was introduced. Thereafter, under direct visualization, advanced through the length of esophagus without difficulty, into gastric pouch, into duodenal bulb. There is a punctated ulceration similar to a dime size in 3 cm proximal to pyloric ring. This was photographed. It is not actively bleeding. Margin of which was biopsied for documentation and H. pylori. GI reflexion of the scope reveals cardia to be benign. Air was suctioned out. The patient was extubated, tolerated the procedure well. IMPRESSION: Antral ulceration status post biopsy. No active bleeding with scar formation on the ulcer, size about 12 mm in diameter. No cody red spot on the ulcer. PLAN AND DISCUSSION: While we have him in the hospital, aggressive ulcer therapy with Protonix IV 40 mg b.i.d. while inpatient, Carafate 2 grams slurry before meals and at bedtime that would be an hour before meals and at bedtime and Gaviscon 1 tablet before meals and diet is going to be soft, 1800 ADA and observation of H and H at the present time because of the cardiac history that he has, since his H and H post-transfusion is only 7.8 and 23.6 and he is still thrombocytopenic to 98. We will give him a unit of packed cells. His renal [place], [place] OPERATIVE NOTE NAME: SADIQANNEL UNIT #: [id number] ROOM: [facility] DOCTOR: OTONIEL DUNBAR,MIRELLA BIRTHDATE: [birth year] status has somewhat improved. Workup in progress. Next H and H in the morning and daily. MIRELLA FREDERICK MD CM:OPRECORD:OPERATIVE NOTE 1704 1800 MIRELLA FREDERICK MD 05/13/18 1759 interface
[2018-05-11 15:38] LABS: BASO % 0.3 % (0.0-1.0); EOS % 0.4 % (1.0-4.0); HEMATOCRIT 25.6 % (42.0-52.0); HEMOGLOBIN 8.4 g/dl (14.0-18.0); LYMPH # 1.4 10*3/uL (1.3-4.4); LYMPH % 14.9 % (27.0-41.0); MEAN CORPUSCULAR HGB 31.8 pg (27.0-31.0); MEAN CORPUSCULAR HGB CONC 32.8 g/dl (33.0-37.0); MEAN PLATELET VOLUME 11.4 fl (9.6-12.3); MONO # 0.7 10*3/uL (0.1-1.0); MONO % 7.3 % (3.0-9.0); NEUT % 76.4 % (47.0-73.0); PLATELET COUNT AUTOMATED 144 10*3/uL (130-400); RED BLOOD COUNT 2.64 10*6/uL (4.50-5.90); RED CELL DISTRI WIDTH 14.7 % (0-14.5); WHITE BLOOD COUNT 9.1 10*3/uL (4.8-10.8)
[2018-05-11 15:57] LABS: ALBUMIN 2.7 gm/dl (3.1-4.5); ALKALINE PHOSPHATASE 65 U/L (45-117); BUN 84 mg/dl (7-24); CHLORIDE 104 mmol/L (98-107); CREATININE 2.08 mg/dL (0.70-1.30); POTASSIUM 4.5 mmol/L (3.5-5.1); SGOT/AST 11 IU/L (3-35); SGPT/ALT 18 U/L (12-78); SODIUM 138 mmol/L (136-145); TOTAL PROTEIN 5.4 gm/dL (6.4-8.2)
[2018-05-11 15:58] LABS: TROPONIN I < 0.015 ng/ml (<0.045)
[2018-05-11] MEDS ORDERED: COZAAR25 M1 PO (21:24)
[2018-05-11] MEDS ORDERED: PROAIR HFA8.5 GM INH (21:25)
[2018-05-12] VITALS (9 sets, daily range): BP systolic 85–117; BP diastolic 38–62
[2018-05-12 08:22] LABS: BASO % 0.4 % (0.0-1.0); EOS # 0.2 10*3/uL (0.0-0.4); HEMATOCRIT 26.4 % (42.0-52.0); HEMOGLOBIN 8.6 g/dl (14.0-18.0); LYMPH # 1.8 10*3/uL (1.3-4.4); MEAN CELL VOLUME 97.1 fl (80.0-94.0); MEAN CORPUSCULAR HGB 31.6 pg (27.0-31.0); MEAN CORPUSCULAR HGB CONC 32.6 g/dl (33.0-37.0); MEAN PLATELET VOLUME 11.6 fl (9.6-12.3); MONO # 0.6 10*3/uL (0.1-1.0); MONO % 8.5 % (3.0-9.0); NEUT # 4.9 10*3/uL (2.3-7.9); NEUT % 64.4 % (47.0-73.0); PLATELET COUNT AUTOMATED 123 10*3/uL (130-400); RED BLOOD COUNT 2.72 10*6/uL (4.50-5.90); RED CELL DISTRI WIDTH 14.7 % (0-14.5); WHITE BLOOD COUNT 7.5 10*3/uL (4.8-10.8)
[2018-05-12 08:43] LABS: ALBUMIN 2.9 gm/dl (3.1-4.5); CREATININE 2.39 mg/dL (0.70-1.30); PHOSPHOROUS 2.5 mg/dL (2.5-4.9); TOTAL PROTEIN 5.5 gm/dL (6.4-8.2)
[2018-05-12 08:51] LABS: THYROID STIM HORMONE (HS) 4.95 uIU/ml (0.358-4.75)
[2018-05-13] VITALS (15 sets, daily range): BP systolic 101–125; BP diastolic 43–86
[2018-05-13 05:27] LABS: ALBUMIN 2.8 gm/dl (3.1-4.5); CREATININE 1.7 mg/dL (0.70-1.30); POTASSIUM 3.5 mmol/L (3.5-5.1); TOTAL PROTEIN 5.2 gm/dL (6.4-8.2)
[2018-05-13 06:31] LABS: HEMATOCRIT 23.6 % (42.0-52.0); HEMOGLOBIN 7.8 g/dl (14.0-18.0); MEAN CELL VOLUME 94.8 fl (80.0-94.0); MEAN CORPUSCULAR HGB 31.3 pg (27.0-31.0); MEAN CORPUSCULAR HGB CONC 33.1 g/dl (33.0-37.0); MEAN PLATELET VOLUME 11.9 fl (9.6-12.3); NUCLEATED RED BLOOD CELL 0.3 % (0.0-0.0); RED BLOOD COUNT 2.49 10*6/uL (4.50-5.90); RED CELL DISTRI WIDTH 14.8 % (0-14.5); WHITE BLOOD COUNT 6.1 10*3/uL (4.8-10.8)
[2018-05-13 06:32] LABS: PLATELET COUNT AUTOMATED 98 10*3/uL (130-400)
[2018-05-13 07:14] LABS: BASOPHILS 1 % (0-1); PLATELET SUFFICIENCY LOW (NORMAL); POLYCHROMASIA SLIGHT; TOTAL CELLS COUNTED 100 #CELLS
[2018-05-14] VITALS: BP 124/53
[2018-05-14 04:00] VITALS: BP 102/54
[2018-05-14 05:29] LABS: CHLORIDE 114 mmol/L (98-107); CREATININE 1.39 mg/dL (0.70-1.30); POTASSIUM 3.5 mmol/L (3.5-5.1); SODIUM 145 mmol/L (136-145)
[2018-05-14 05:30] LABS: BUN 27 mg/dl (7-24)
[2018-05-14 05:40] LABS: HEMATOCRIT 26.5 % (42.0-52.0); HEMOGLOBIN 8.9 g/dl (14.0-18.0); MEAN CORPUSCULAR HGB 31.9 pg (27.0-31.0); MEAN CORPUSCULAR HGB CONC 33.6 g/dl (33.0-37.0); MEAN PLATELET VOLUME 11.9 fl (9.6-12.3); PLATELET COUNT AUTOMATED 108 10*3/uL (130-400); RED BLOOD COUNT 2.79 10*6/uL (4.50-5.90); RED CELL DISTRI WIDTH 14.9 % (0-14.5); WHITE BLOOD COUNT 4.4 10*3/uL (4.8-10.8)
[2018-05-14 07:01] LABS: PLATELET SUFFICIENCY LOW (NORMAL); TOTAL CELLS COUNTED 100 #CELLS
[2018-05-14 08:00] VITALS: BP 121/58
[2018-05-14 12:00] VITALS: BP 120/82
[2018-05-14 16:00] VITALS: BP 114/64
[2018-05-14] MEDS ORDERED: LASIX40 MG PO (17:17)
[2018-05-14 20:00] VITALS: BP 122/52
[2018-05-15] VITALS: BP 117/53
[2018-05-15 06:24] LABS: CREATININE 1.54 mg/dL (0.70-1.30); POTASSIUM 3.7 mmol/L (3.5-5.1)
[2018-05-15 06:32] LABS: BASO # 0.1 10*3/uL (0.0-0.1); EOS # 0.2 10*3/uL (0.0-0.4); EOS % 3.9 % (1.0-4.0); HEMATOCRIT 28.2 % (42.0-52.0); LYMPH # 1.5 10*3/uL (1.3-4.4); LYMPH % 29.9 % (27.0-41.0); MEAN CORPUSCULAR HGB 31.7 pg (27.0-31.0); MEAN CORPUSCULAR HGB CONC 31.9 g/dl (33.0-37.0); MEAN PLATELET VOLUME 10.9 fl (9.6-12.3); MONO # 0.6 10*3/uL (0.1-1.0); MONO % 11.6 % (3.0-9.0); NEUT # 2.6 10*3/uL (2.3-7.9); NEUT % 52.8 % (47.0-73.0); NUCLEATED RED BLOOD CELL 0.4 % (0.0-0.0); PLATELET COUNT AUTOMATED 137 10*3/uL (130-400); RED BLOOD COUNT 2.84 10*6/uL (4.50-5.90); RED CELL DISTRI WIDTH 15.8 % (0-14.5); WHITE BLOOD COUNT 4.9 10*3/uL (4.8-10.8)
[2018-05-15 06:39] LABS: MEAN CELL VOLUME 99.3 fl (80.0-94.0)
[2018-05-15 08:00] VITALS: BP 114/68
[2018-05-15 12:00] VITALS: BP 124/53
[2018-05-15] MEDS ORDERED: CARAFATE1 GM/10 ML PO (15:21)
[2018-05-15] MEDS ORDERED: PROTONIX40 MG PO (15:21)
== END 2018-05-15 16:25 | disposition home or self-care (01) | DRG 377 ==
LOC: ED 14:20 → EDHOLD 16:52 → ICCU 16:52 → EDHOLD 17:46 → ICCU 17:46 → 4E 05-14 13:16
PROVIDERS: Internal Medicine; Internal Medicine Hospice and Palliative Medicine; Nurse Practitioner Family
PROC: 30233N1 Transfusion of Nonautologous Red Blood Cells into Peripheral Vein, Percutaneous Approach (ICD-10-PCS; principal; 2018-05-12)
PROC: 0DB78ZX Excision of Stomach, Pylorus, Via Natural or Artificial Opening Endoscopic, Diagnostic (ICD-10-PCS; 2018-05-13)
DX: K25.4 Chronic or unspecified gastric ulcer with hemorrhage (principal); E43 Unspecified severe protein-calorie malnutrition; D68.59 Other primary thrombophilia; I13.0 Hypertensive heart and chronic kidney disease with heart failure and stage 1 through stage 4 chronic kidney disease, or unspecified chronic kidney disease; E11.22 Type 2 diabetes mellitus with diabetic chronic kidney disease; E87.2 Acidosis; I50.42 Chronic combined systolic (congestive) and diastolic (congestive) heart failure; R65.10 Systemic inflammatory response syndrome (SIRS) of non-infectious origin without acute organ dysfunction; E11.65 Type 2 diabetes mellitus with hyperglycemia; I48.0 Paroxysmal atrial fibrillation; E66.01 Morbid (severe) obesity due to excess calories; I25.10 Atherosclerotic heart disease of native coronary artery without angina pectoris; D53.9 Nutritional anemia, unspecified; D72.810 Lymphocytopenia; E55.9 Vitamin D deficiency, unspecified; M54.5 Low back pain; J44.9 Chronic obstructive pulmonary disease, unspecified; G89.29 Other chronic pain; N18.3 Chronic kidney disease, stage 3 (moderate); Z87.442 Personal history of urinary calculi; I25.2 Old myocardial infarction; Z79.4 Long term (current) use of insulin; Z87.891 Personal history of nicotine dependence; Z82.49 Family history of ischemic heart disease and other diseases of the circulatory system; Z83.3 Family history of diabetes mellitus; Z88.8 Allergy status to other drugs, medicaments and biological substances; Z84.89 Family history of other specified conditions; Z79.899 Other long term (current) drug therapy; Z79.82 Long term (current) use of aspirin; Z68.35 Body mass index [BMI] 35.0-35.9, adult; Z82.3 Family history of stroke; Z80.9 Family history of malignant neoplasm, unspecified

== ENCOUNTER 2018-09-17 16:50 | Inpatient (IN) | payer MEDICARE, BC ==
[~2018-09-17] VITALS: Ht 185.4 cm; Wt 136.1 kg
--- NOTE | ~2018-09-17 | WRIGHTHP ---
[place], [place] PATIENT HISTORY AND PHYSICAL EXAM NAME: ANNEL BABCOCK [facility] #: [id number] UNIT #: [id number] ROOM: 425 DOCTOR: LUIS SOARES DPM BIRTHDATE: [birth year] DOS: 09/21/2018 LOWER EXTREMITY PHYSICAL EXAMINATION VASCULAR: He has palpable pedal pulses of his left lower extremity that are minimal, but he has good cap fill time. Also on his right side, he has palpable pedal pulses, but he has significant amount of edema on both lower extremities that is bilateral symmetrical and there is negative for Homans sign. NEUROLOGICAL: He has a loss of protective sensation secondary to diabetic peripheral neuropathy. DERMATOLOGIC: There is red, erythematous area of the dorsal lateral aspect of his foot and ankle of the right consistent with an abscess. MRI also suggests there is an abscess in the area of the right foot and distal aspect of the ankle. MUSCULOSKELETAL: He has a tight posterior muscle group particularly equinus component of both lower extremities. ORTHOPEDIC EXAM: Possible osteomyelitis of the right foot as a result of the abscess. LUIS SOARES DPM CM:HISPHYS:PATIENT HISTORY AND PHYSICAL EXAMINATION 1038 1409 LUIS SOARES DPM 10/18/18 1554 interface
--- NOTE | ~2018-09-17 | EKG ---
[place], [place] ELECTROCARDIOGRAM REPORT NAME: ANNEL BABCOCK UNIT #: [id number] ROOM: DOCTOR: EPIPHANY DRAFT REPORT BIRTHDATE: [birth year] [facility] Test Date: 2018-09-17 Test Time: 17:23:47 Pat Name: ANNEL BABCOCK Department: Room: Gender: Internet Systems Administrator: Joslyn Farah : 1950 Requested By: BELINDA MARSHALL Order Number: [id number] Reading MD: Juaquin Simpson MD Measurements Intervals Gilliam Rate: 86 P: 62 VT: 221 QRS: -43 QRSD: 120 T: 33 QT: 374 QTc: 448 Interpretive Statements Sinus rhythm Prolonged VT interval IVCD, consider atypical RBBB Minimal ST elevation, lateral leads Low voltage precordial leads. Baseline wander in lead(s) V1 Electronically Signed On 09-17-2018 15:14:13 PDT by Juaquin Simpson MD CM:EKGRPT:ELECTROCARDIOGRAM REPORT 1723 1514 BELINDA MARSHALL EPIPHANY DRAFT REPORT BELINDA MARSHALL
--- NOTE | ~2018-09-17 | PN ---
[place], [place] PROGRESS NOTE NAME: ANNEL BABCOCK UNIT #: [id number] ROOM: 425 DOCTOR: LUIS SOARES DPM BIRTHDATE: [birth year] DATE: 09/21/18 ADDENDUM TO RESIDENT REPORT: I rounded with the resident and concur with their diagnosis and treatment as documented by the resident. LUIS SOARES DPM CM:PNTRANS 1030 162 LUIS SOARES DPM 10/12/181623 MILLICENT UGALDE MIS.LLR
--- NOTE | ~2018-09-17 | O ---
[place], [place] OPERATIVE NOTE NAME: ANNEL BABCOCK [facility]: [id number] UNIT #: [id number] ROOM: 425 DOCTOR: LUIS SOARES DPM BIRTHDATE: [birth year] DOS: 09/21/2018 SURGEON: Luis Soares DPM PET CREMATORY WORKER: Dr. Korey Mandujano and Dr. Chris Ordoñez. PREOPERATIVE DIAGNOSES: 1. Diabetic foot infection with an abscess of the right foot and ankle. 2. Possible osteomyelitis, right foot and ankle. POSTOPERATIVE DIAGNOSES: 1. Diabetic foot infection with an abscess of the right foot and ankle. 2. Possible osteomyelitis, right foot and ankle. PROCEDURES: 1. Incision and drainage of bone biopsy, bone debridement of the right foot and ankle. 2. Application of Integra graft. 3. Application of negative pressure therapy on the right. PROCEDURE #1: INCISION AND DRAINAGE, BONE BIOPSY, BONE DEBRIDEMENT OF THE RIGHT FOOT AND ANKLE: The patient was seen in preoperative holding area and appropriate site marking was performed. He and his family concurred with the site marked as well as consent and understood the pros, cons, risks, benefits. The patient was brought to OR, placed on well-padded OR table. Anesthesia was achieved. Once anesthesia was achieved, his right foot and leg were prepped and draped in usual sterile fashion. At this time, a very fluctuant area was identified. An incision was made and significant amount of purulent drainage or pus that looked like classic Staphylococcus aureus type infection. A deep culture was taken in this purulence and it was drained. Aerobic and anaerobic, fungal acid fast and cultures were taken. Next, tissue was debrided excessively and necrotic tissue was excised and removed in total and there was actually minimal amounts relatively speaking. Given the patient's abscess, it appears that this abscess was cut relatively early. Tissues were also sent for cultures as consists of Gram stain, aerobic, anaerobic, fungal acid fast as well as tissue biopsy. Next, a 3000 mL bag of pulse irrigation was applied and irrigated the wound extensively and the wound pinked up very, very nice, there was good bleeding and there was pink, healthy tissues. No other tracking was noted proximal or dorsally of this wound on the right. The wound at this time measured 10.0 x 5.0 x 1.5 cm. This was down to the bone. Next, a bone was debrided and bone was harvested for culture and biopsy. The bone appeared to be very healthy, relatively speaking. It does not seem like the bone would be infected; however, we debrided and we cultured it and sent for biopsy. Again, more irrigation was used. PROCEDURE #2: APPLICATION OF INTEGRA GRAFT: Due to the wounds looking very pink, healthy, and granular and the amount of loss of tissue, it was thought that Integra would be applicable at this point in time. Due to the healthiness and appearance of the wound, a piece of 2 x 2 Integra supplied, bilayer graft was applied, stapled to the perimeter of the wound and neutralized in the area. [place], [place] OPERATIVE NOTE NAME: SADIQANNEL UNIT #: [id number] ROOM: 425 DOCTOR: LUIS SOARES DPM BIRTHDATE: [birth year] PROCEDURE #3: APPLICATION OF NEGATIVE PRESSURE THERAPY: KCI wound VAC was applied in the usual sterile technique over Adaptic and the negative pressure therapy was applied to the Integra graft and the surgical wounds then were dressed with 4 x 4s, Adele and subsequent compression. A compression bandage was applied to his left lower extremity as well as the milky edema of the left lower extremity. He tolerated the procedure and anesthesia well and left the OR with vital signs intact and vascular status intact. LUIS SOARES DPM CM:OPRECORD:OPERATIVE NOTE 1038 1410 LUIS SOARES DPM 10/27/18 0751 interface
--- NOTE | ~2018-09-17 | WRIGHTHP ---
[place], [place] PATIENT HISTORY AND PHYSICAL EXAM NAME: ANNEL BABCOCK [facility] [id number] UNIT #: [id number] ROOM: 425 DOCTOR: LUIS SOARES DPM BIRTHDATE: [birth year] DOS: 09/21/2018 INDICATIONS: The patient was seen in the preop holding area for abscess of his right foot and ankle area. He was admitted here at [facility] and presents with an abscess of the right foot and ankle. MRI was performed, suggesting that he has a large abscess dorsal lateral aspect of his foot and the distal portion of his ankle. At this time, he is consented and agreed to surgery and appropriate site marking for surgery of his right foot. At this time, he is aware of pros, cons, risks, benefits, overcorrection, undercorrection, recurrence, limb loss, , DVT, and other pssiblities should happen as he has been instructed, but this could happen. With this in mind, he realizes diabetic limb salvage is a potentially risky. With this in mind, he understands the pros, cons, risks and benefits, he understands and agrees with appropriate site marking and he also understands the perioperative management. This was also discussed with his family as well. LUIS SOARES DPM CM:HISPHYS:PATIENT HISTORY AND PHYSICAL EXAMINATION 1038 1408 LUIS SOARES DPM 10/18/18 1555 interface
[~2018-09-17 16:50] MED LIST changes: -ALBUTEROL0.09 MG/A2 INH; -ASCRIPTIN ENTER81 MG PO; +ASPIRIN81 M1 PO; +CARAFATE1 GM/10 ML PO; +PROAIR HFA8.5 GM INH
[2018-09-17 16:56] VITALS: BP 168/83
[2018-09-17 17:24] LABS: BASO % 0.6 % (0.0-1.0); EOS # 0.3 10*3/uL (0.0-0.4); EOS % 3.9 % (1.0-4.0); HEMATOCRIT 41.7 % (42.0-52.0); LYMPH # 1.4 10*3/uL (1.3-4.4); LYMPH % 20.7 % (27.0-41.0); MEAN CELL VOLUME 92.9 fl (80.0-94.0); MEAN CORPUSCULAR HGB CONC 31.2 g/dl (33.0-37.0); MONO # 0.9 10*3/uL (0.1-1.0); MONO % 13.4 % (3.0-9.0); NEUT # 4.1 10*3/uL (2.3-7.9); PLATELET COUNT AUTOMATED 159 10*3/uL (130-400); RED BLOOD COUNT 4.49 10*6/uL (4.50-5.90); RED CELL DISTRI WIDTH 15.7 % (0-14.5); WHITE BLOOD COUNT 6.7 10*3/uL (4.8-10.8)
[2018-09-17 17:32] LABS: ACT PARTIAL THROMBO TIME 22.7 SECONDS (20.8-31.5); INTERNATIONAL NORM RATIO 0.9 (2.0-3.5)
[2018-09-17 17:39] LABS: ALBUMIN 2.9 gm/dl (3.1-4.5); CREATININE 1.67 mg/dL (0.70-1.30); POTASSIUM 4.8 mmol/L (3.5-5.1); TOTAL PROTEIN 7.5 gm/dL (6.4-8.2)
[2018-09-17 17:44] VITALS: BP 150/78
[2018-09-17 17:45] LABS: TROPONIN I < 0.015 ng/ml (<0.045)
[2018-09-17 19:07] VITALS: BP 137/56
[2018-09-17 20:00] VITALS: BP 137/66
[2018-09-17 20:05] VITALS: BP 137/66
[2018-09-17] MEDS ORDERED: POTASSIUM CHLO10 MEQ PO (20:59)
[2018-09-17] MEDS ORDERED: GLUCOPHAGE500 M1 PO (21:00)
[2018-09-17] MEDS ORDERED: PACERONE200 MG PO (21:04)
[2018-09-17] MEDS ORDERED: ELIQUIS5 M1 PO (21:06)
[2018-09-17] MEDS ORDERED: INDOMETHACIN25 M1 PO (21:37)
[2018-09-17] MEDS ORDERED: Ipratropium Brom3 ML INH (21:38)
[2018-09-18] VITALS: BP 153/89
[2018-09-18 06:38] LABS: BASO # 0.1 10*3/uL (0.0-0.1); BASO % 0.8 % (0.0-1.0); EOS # 0.3 10*3/uL (0.0-0.4); EOS % 4.5 % (1.0-4.0); HEMATOCRIT 42.6 % (42.0-52.0); HEMOGLOBIN 13.1 g/dl (14.0-18.0); LYMPH # 1.4 10*3/uL (1.3-4.4); LYMPH % 21.5 % (27.0-41.0); MEAN CORPUSCULAR HGB 28.6 pg (27.0-31.0); MEAN CORPUSCULAR HGB CONC 30.8 g/dl (33.0-37.0); MEAN PLATELET VOLUME 11.3 fl (9.6-12.3); MONO # 0.9 10*3/uL (0.1-1.0); MONO % 14.2 % (3.0-9.0); NEUT # 3.8 10*3/uL (2.3-7.9); NEUT % 58.5 % (47.0-73.0); PLATELET COUNT AUTOMATED 137 10*3/uL (130-400); RED BLOOD COUNT 4.58 10*6/uL (4.50-5.90); RED CELL DISTRI WIDTH 15.9 % (0-14.5); WHITE BLOOD COUNT 6.4 10*3/uL (4.8-10.8)
[2018-09-18 07:04] LABS: BUN 22 mg/dl (7-24); CHLORIDE 109 mmol/L (98-107); CREATININE 1.26 mg/dL (0.70-1.30); PHOSPHOROUS 2.8 mg/dL (2.5-4.9); POTASSIUM 4.5 mmol/L (3.5-5.1); SODIUM 144 mmol/L (136-145)
[2018-09-18 08:00] VITALS: BP 140/70; BP 145/74
[2018-09-18 12:00] VITALS: BP 121/64
[2018-09-18 16:00] VITALS: BP 118/56
[2018-09-18 20:00] VITALS: BP 116/53
[2018-09-19] VITALS: BP 126/57
[2018-09-19 06:10] LABS: BASO # 0.1 10*3/uL (0.0-0.1); BASO % 0.9 % (0.0-1.0); EOS # 0.3 10*3/uL (0.0-0.4); EOS % 4.5 % (1.0-4.0); HEMATOCRIT 41.6 % (42.0-52.0); HEMOGLOBIN 13.1 g/dl (14.0-18.0); LYMPH # 1.1 10*3/uL (1.3-4.4); LYMPH % 16.1 % (27.0-41.0); MEAN CELL VOLUME 90.4 fl (80.0-94.0); MEAN CORPUSCULAR HGB 28.5 pg (27.0-31.0); MEAN CORPUSCULAR HGB CONC 31.5 g/dl (33.0-37.0); MEAN PLATELET VOLUME 10.6 fl (9.6-12.3); MONO # 0.9 10*3/uL (0.1-1.0); MONO % 12.7 % (3.0-9.0); NEUT # 4.4 10*3/uL (2.3-7.9); NEUT % 65.4 % (47.0-73.0); PLATELET COUNT AUTOMATED 156 10*3/uL (130-400); RED CELL DISTRI WIDTH 15.7 % (0-14.5); WHITE BLOOD COUNT 6.7 10*3/uL (4.8-10.8)
[2018-09-19 06:32] LABS: ALBUMIN 2.8 gm/dl (3.1-4.5); CREATININE 1.64 mg/dL (0.70-1.30); POTASSIUM 4.5 mmol/L (3.5-5.1); TOTAL PROTEIN 7.2 gm/dL (6.4-8.2)
[2018-09-19 08:00] VITALS: BP 114/68; BP 160/56
[2018-09-19 12:00] VITALS: BP 122/72
[2018-09-19 16:44] VITALS: BP 90/59
[2018-09-19 20:00] VITALS: BP 112/41
[2018-09-20] VITALS: BP 113/41
[2018-09-20 07:04] LABS: BASO # 0.1 10*3/uL (0.0-0.1); BASO % 0.9 % (0.0-1.0); EOS # 0.2 10*3/uL (0.0-0.4); EOS % 4.1 % (1.0-4.0); HEMATOCRIT 40.3 % (42.0-52.0); HEMOGLOBIN 12.4 g/dl (14.0-18.0); LYMPH # 1.3 10*3/uL (1.3-4.4); LYMPH % 22.4 % (27.0-41.0); MEAN CELL VOLUME 91.8 fl (80.0-94.0); MEAN CORPUSCULAR HGB 28.2 pg (27.0-31.0); MEAN CORPUSCULAR HGB CONC 30.8 g/dl (33.0-37.0); MEAN PLATELET VOLUME 11.2 fl (9.6-12.3); MONO # 0.6 10*3/uL (0.1-1.0); NEUT # 3.4 10*3/uL (2.3-7.9); NEUT % 61.2 % (47.0-73.0); PLATELET COUNT AUTOMATED 156 10*3/uL (130-400); RED BLOOD COUNT 4.39 10*6/uL (4.50-5.90); RED CELL DISTRI WIDTH 15.8 % (0-14.5); WHITE BLOOD COUNT 5.6 10*3/uL (4.8-10.8)
[2018-09-20 07:34] LABS: CREATININE 1.52 mg/dL (0.70-1.30); POTASSIUM 4.5 mmol/L (3.5-5.1)
[2018-09-20 08:00] VITALS: BP 104/78
[2018-09-20 12:00] VITALS: BP 137/63
[2018-09-20 16:00] VITALS: BP 109/83
[2018-09-20 20:00] VITALS: BP 104/85
[2018-09-21] VITALS (9 sets, daily range): BP systolic 114–147; BP diastolic 52–82
[2018-09-21 08:07] LABS: BASO % 0.6 % (0.0-1.0); EOS # 0.2 10*3/uL (0.0-0.4); EOS % 3.7 % (1.0-4.0); HEMATOCRIT 42.9 % (42.0-52.0); LYMPH # 1.3 10*3/uL (1.3-4.4); LYMPH % 19.8 % (27.0-41.0); MEAN CELL VOLUME 93.1 fl (80.0-94.0); MEAN CORPUSCULAR HGB 28.2 pg (27.0-31.0); MEAN CORPUSCULAR HGB CONC 30.3 g/dl (33.0-37.0); MEAN PLATELET VOLUME 10.8 fl (9.6-12.3); MONO # 0.7 10*3/uL (0.1-1.0); MONO % 10.6 % (3.0-9.0); NEUT # 4.1 10*3/uL (2.3-7.9); PLATELET COUNT AUTOMATED 161 10*3/uL (130-400); RED BLOOD COUNT 4.61 10*6/uL (4.50-5.90); RED CELL DISTRI WIDTH 15.9 % (0-14.5); WHITE BLOOD COUNT 6.3 10*3/uL (4.8-10.8)
[2018-09-21 09:00] LABS: CREATININE 1.47 mg/dL (0.70-1.30); POTASSIUM 4.8 mmol/L (3.5-5.1)
[2018-09-21] MEDS ORDERED: DOXYCYCLINE100 MG PO (15:54)
[2018-09-22] VITALS: BP 133/55
[2018-09-22 06:53] LABS: BASO # 0.1 10*3/uL (0.0-0.1); BASO % 0.8 % (0.0-1.0); EOS # 0.2 10*3/uL (0.0-0.4); EOS % 3.3 % (1.0-4.0); HEMATOCRIT 38.9 % (42.0-52.0); HEMOGLOBIN 11.5 g/dl (14.0-18.0); LYMPH # 1.4 10*3/uL (1.3-4.4); LYMPH % 22.7 % (27.0-41.0); MEAN CELL VOLUME 93.5 fl (80.0-94.0); MEAN CORPUSCULAR HGB 27.6 pg (27.0-31.0); MEAN CORPUSCULAR HGB CONC 29.6 g/dl (33.0-37.0); MEAN PLATELET VOLUME 10.9 fl (9.6-12.3); MONO # 0.7 10*3/uL (0.1-1.0); MONO % 11.7 % (3.0-9.0); NEUT # 3.7 10*3/uL (2.3-7.9); NEUT % 61.2 % (47.0-73.0); PLATELET COUNT AUTOMATED 150 10*3/uL (130-400); RED BLOOD COUNT 4.16 10*6/uL (4.50-5.90); RED CELL DISTRI WIDTH 15.9 % (0-14.5)
[2018-09-22 07:28] LABS: CREATININE 1.56 mg/dL (0.70-1.30); POTASSIUM 4.4 mmol/L (3.5-5.1)
[2018-09-22 08:00] VITALS: BP 130/80
[2018-09-22 12:00] VITALS: BP 129/57
[2018-09-22 16:00] VITALS: BP 133/60
[2018-09-22 20:00] VITALS: BP 140/77
[2018-09-23] VITALS: BP 138/80
[2018-09-23 06:51] LABS: BASO % 0.6 % (0.0-1.0); EOS # 0.2 10*3/uL (0.0-0.4); EOS % 3.8 % (1.0-4.0); HEMATOCRIT 38.2 % (42.0-52.0); HEMOGLOBIN 11.7 g/dl (14.0-18.0); LYMPH # 1.4 10*3/uL (1.3-4.4); LYMPH % 22.6 % (27.0-41.0); MEAN CELL VOLUME 92.7 fl (80.0-94.0); MEAN CORPUSCULAR HGB 28.4 pg (27.0-31.0); MEAN CORPUSCULAR HGB CONC 30.6 g/dl (33.0-37.0); MEAN PLATELET VOLUME 11.4 fl (9.6-12.3); MONO # 0.7 10*3/uL (0.1-1.0); MONO % 11.1 % (3.0-9.0); NEUT # 3.9 10*3/uL (2.3-7.9); NEUT % 61.4 % (47.0-73.0); PLATELET COUNT AUTOMATED 143 10*3/uL (130-400); RED BLOOD COUNT 4.12 10*6/uL (4.50-5.90); RED CELL DISTRI WIDTH 15.9 % (0-14.5); WHITE BLOOD COUNT 6.4 10*3/uL (4.8-10.8)
[2018-09-23 07:02] LABS: CREATININE 1.44 mg/dL (0.70-1.30); POTASSIUM 3.9 mmol/L (3.5-5.1)
[2018-09-23 08:00] VITALS: BP 128/68
[2018-09-23 12:00] VITALS: BP 128/70
[2018-09-23 16:00] VITALS: BP 126/69
[2018-10-14] MEDS ORDERED: CIPRO500 MG PO (10:08)
[2018-10-14] MEDS ORDERED: DULCOLAX10 M1 R (10:08)
[2018-10-14] MEDS ORDERED: FLEET ENEMA 13133 ML R (10:10)
[2018-10-14] MEDS ORDERED: GLUCAGON HCL1 MG IJ (10:11)
[2018-10-14] MEDS ORDERED: GLUCOSE15 GM/59 M PO (10:12)
[2018-10-14] MEDS ORDERED: NORCO 5-325 TA1 EACH PO (10:15)
[2018-10-14] MEDS ORDERED: MOM30 M1 PO (10:15)
[2018-10-14] MEDS ORDERED: NOVOLOG100 UNIT/1 SC (10:34)
== END 2018-09-23 16:52 | disposition other institution (70) | DRG 264 ==
LOC: ED 16:50 → 4E 18:24 → EDHOLD 18:24 → 4E 20:08
PROVIDERS: Internal Medicine; Nurse Practitioner Family; Student in an Organized Health Care Education/Training Program
PROC: 2W1SX6Z Compression of Right Foot using Pressure Dressing (ICD-10-PCS; principal; 2018-09-21)
PROC: 0HRMXK3 Replacement of Right Foot Skin with Nonautologous Tissue Substitute, Full Thickness, External Approach (ICD-10-PCS; principal; 2018-09-21)
PROC: 0QBL0ZX Excision of Right Tarsal, Open Approach, Diagnostic (ICD-10-PCS; principal; 2018-09-21)
DX: E11.51 Type 2 diabetes mellitus with diabetic peripheral angiopathy without gangrene (principal); L03.115 Cellulitis of right lower limb; E44.0 Moderate protein-calorie malnutrition; I50.42 Chronic combined systolic (congestive) and diastolic (congestive) heart failure; I13.0 Hypertensive heart and chronic kidney disease with heart failure and stage 1 through stage 4 chronic kidney disease, or unspecified chronic kidney disease; L02.415 Cutaneous abscess of right lower limb; L02.611 Cutaneous abscess of right foot; E11.628 Type 2 diabetes mellitus with other skin complications; M77.31 Calcaneal spur, right foot; D72.810 Lymphocytopenia; I25.10 Atherosclerotic heart disease of native coronary artery without angina pectoris; N18.3 Chronic kidney disease, stage 3 (moderate); E66.01 Morbid (severe) obesity due to excess calories; D64.9 Anemia, unspecified; E55.9 Vitamin D deficiency, unspecified; I48.0 Paroxysmal atrial fibrillation; E11.65 Type 2 diabetes mellitus with hyperglycemia; E11.22 Type 2 diabetes mellitus with diabetic chronic kidney disease; J44.9 Chronic obstructive pulmonary disease, unspecified; M54.9 Dorsalgia, unspecified; G89.29 Other chronic pain; I87.2 Venous insufficiency (chronic) (peripheral); Z87.891 Personal history of nicotine dependence; I25.2 Old myocardial infarction; Z79.4 Long term (current) use of insulin; Z88.8 Allergy status to other drugs, medicaments and biological substances; Z82.49 Family history of ischemic heart disease and other diseases of the circulatory system; Z83.3 Family history of diabetes mellitus; Z79.51 Long term (current) use of inhaled steroids; Z79.82 Long term (current) use of aspirin; Z79.84 Long term (current) use of oral hypoglycemic drugs; Z79.899 Other long term (current) drug therapy; Z68.35 Body mass index [BMI] 35.0-35.9, adult

== ENCOUNTER → 2018-10-26 | Day surgery (SDC) | payer MEDICARE, BC ==
[2018-10-14 10:00] VITALS: BP 94/67
[~2018-10-26] VITALS: Ht 185.4 cm; Wt 135.6 kg
[~2018-10-26] MED LIST changes: +CIPRO500 MG PO; +DOXYCYCLINE100 M3 PO; +DOXYCYCLINE100 MG PO; +DULCOLAX10 M1 R; +FLEET ENEMA 13133 ML R; +GLUCAGON HCL1 MG IJ; +GLUCOPHAGE500 M1 PO; +GLUCOSE15 GM/59 M PO; +INDOMETHACIN25 M1 PO; +Ipratropium Brom3 ML INH; +MOM30 M1 PO; +NOVOLOG100 UNIT/1 SC; +POTASSIUM CHLO10 MEQ PO; +PREDNISONE50 MG PO; +TESSALON PERLE100 MG PO; +TRAMADOL HCL50 MG PO; +VIAGRA100 MG PO
--- NOTE | ~2018-10-26 | WRIGHTHP ---
[place], [place] PATIENT HISTORY AND PHYSICAL EXAM NAME: ANNEL BABCOCK [facility] #: [id number] UNIT #: [id number] ROOM: DOCTOR: LUIS SOARES DPM BIRTHDATE: [birth year] DOS: 10/26/2018 INDICATION NOTE: The patient was seen for followup regarding open wound of his right lower extremity, in particular his foot and ankle. He has an open wound that measures 6.5 x 4.5 x 0.3, full thickness in nature. There are no classic cardinal signs of infection; however, some contamination on his wound and it still needs more elevation of the base of the wound. He is set for surgery today for a wound debridement of his right, application of PriMatrix and application of wound VAC. Also, he has significant peripheral edema, venous insufficiency, venous stasis disease and dermatitis of both lower extremities with pretibial edema noted. With this in mind, he agrees to consent. His in the preop holding area. They understand the perioperative management. They agree with the pros, cons, risks and benefits, understand the risks associated with this. He is to continue the same orders around the surgery as he had previously. He agreed to consent, agreed to site marking and agreed with the perioperative management. LUIS SOARES DPM CM:HISPHYS:PATIENT HISTORY AND PHYSICAL EXAMINATION 1148 1415 LUIS SOARES DPM 10/26/18 1415 interface
--- NOTE | ~2018-10-26 | WRIGHTHP ---
[place], [place] PATIENT HISTORY AND PHYSICAL EXAM NAME: ANNEL BABCOCK [facility] #[facility] [id number] UNIT #: [id number] ROOM: DOCTOR: LUIS SOARES DPM BIRTHDATE: [birth year] DOS: 10/26/2018 LOWER EXTREMITY PHYSICAL EXAM: VASCULAR: There is adequate perfusion to his right lower extremity. There is good cap refill time. He has palpable pedal pulses; however, he has significant pretibial edema noted bilaterally with venous stasis disease, edema, venous insufficiency, both lower extremities. NEUROLOGICAL: He has a lack of protective sensation secondary to diabetic peripheral neuropathy. MUSCULOSKELETAL: He has a tight gastrocnemius bilaterally. ORTHOPEDIC: No gross deformities noted acutely today. LUIS SOARES DPM CM:HISPHYS:PATIENT HISTORY AND PHYSICAL EXAMINATION 1148 1420 LUIS SOARES DPM 10/26/18 1420 interface
--- NOTE | ~2018-10-26 | O ---
[place], [place] OPERATIVE NOTE [facility]: [id number] UNIT #: [id number] ROOM: DOCTOR: LUIS SOARES DPM BIRTHDATE: [birth year] DOS: 10/26/2018 SURGEON: Luis Soares DPM ASSISTANTS: Dr. Korey Mandujano (fellow) and Geovanny Gross, PGY-3. PREOPERATIVE DIAGNOSES: 1. Open wound of the right foot that measures 6.5 x 4.5 x 0.3. 2. Venous stasis disease, venous insufficiency, pretibial edema of the right lower leg. 3. Venous stasis disease pretibial edema, venous stasis disease of left lower extremity as well. POSTOPERATIVE DIAGNOSES: 1. Open wound of the right foot that measures 6.5 x 4.5 x 0.3. 2. Venous stasis disease, venous insufficiency, pretibial edema of the right lower leg. 3. Venous stasis disease pretibial edema, venous stasis disease of left lower extremity as well. PROCEDURES: 1. Full thickness sharp excisional debridement, delayed bleeding through and through down to the subcutaneous and muscle tissues. Tissues were sent for Gram stain, aerobic, anaerobic, fungal, acid fast. 2. Application of PriMatrix graft (skin graft substitute). 3. Application of wound VAC on the right. 4. A 3-layer Unna boot compression bandage was applied to the left lower extremity. 5. Application of a 3-layer Unna boot compression bandage to the right lower extremity. The patient was seen in preop holding area. Appropriate so much warm and his preferred understanding the preoperative management and understand the course of treatment as well as site marked. The patient was brought in the OR, placed on a well-padded OR table where IV sedation was achieved. Once the anesthesia was achieved, the right foot and leg were prepped and draped in usual sterile fashion. PROCEDURE #1: FULL THICKNESS SHARP EXCISIONAL DEBRIDEMENT OF THE RIGHT LOWER EXTREMITY WOUND THAT MEASURES 6.5 X 4.5 X 0.3: At this time, using a rongeur and a curette, a full thickness sharp excision of the tissue was debrided. This was sent for Gram stain, aerobic, anaerobic, fungal, acid fast as well as biopsy. Once good bleeding was noted and good perfusion of the tissues were noted and appeared to be very clean, removed any devitalized necrotic tissue. The wound was stabilized with hemostasis. PROCEDURE #2: APPLICATION OF SKIN GRAFT SUBSTITUTE PRIMATRIX GRAFT FROM [employer]: Integra PriMatrix graft was used and this was applied to the foot, covering the entire wound and the collagen was stacked to enhance growth and [place], [place] OPERATIVE NOTE NAME: ANNEL BABCOCK UNIT #: [id number] ROOM: DOCTOR: LUIS SOARES DPM BIRTHDATE: [birth year] activity of the wound. This was stable and fit very nicely to the patient's wound. PROCEDURE #3: APPLICATION OF NEGATIVE PRESSURE THERAPY, WOUND VAC: At this point in time, Adaptic was placed over the PriMatrix. A wound VAC was applied in usual sterile fashion, sterile technique with ____ continuous on the right foot. PROCEDURE #4: UNNA BOOT COMPRESSION BANDAGE WAS APPLIED: At this point in time, multiple layers of compression bandage were applied from the toes to the tibial tubercle for relieving pressure from the edema and removing pressure from venous stasis disease, dermatitis and pretibial edema. The patient had pretibial edema 3/5 and this was applied with a compressive bandage on the left lower extremity. PROCEDURE #5: APPLICATION OF UNNA BOOT COMPRESSION THERAPY OF HIS RIGHT LOWER EXTREMITY. At this time, multiple layers Unna boot compression therapy applied to his right lower extremity, multiple layers compressing the venous stasis disease and dermatitis and pretibial edema of his right lower extremity. Abelardo bandage was applied to both lower extremities in the usual sterile fashion. He tolerated the procedure and anesthesia well and left the OR with vital signs stable and vascular status intact. LUIS SOARES DPM CM:OPRECORD:OPERATIVE NOTE [id number] LUIS SOARES DPM 10/27/18 0749 interface
[2018-10-26 07:32] VITALS: BP 123/70
[2018-10-26 08:30] VITALS: BP 92/44
[2018-10-26 09:00] VITALS: BP 92/49
[2018-10-27 16:10] LABS: ACID FAST SPEC PROCESSING Tissue Grinding (.)
[2018-12-07 09:16] LABS: ACID FAST CULTURE Negative (.)
== END | disposition home or self-care (01) ==
LOC: SDC 10-14 10:15
PROVIDERS: Podiatrist
DX: L03.031 Cellulitis of right toe (principal); I87.2 Venous insufficiency (chronic) (peripheral); K21.9 Gastro-esophageal reflux disease without esophagitis; E78.00 Pure hypercholesterolemia, unspecified; E11.9 Type 2 diabetes mellitus without complications; Q63.1 Lobulated, fused and horseshoe kidney; I11.0 Hypertensive heart disease with heart failure; I50.42 Chronic combined systolic (congestive) and diastolic (congestive) heart failure; I25.10 Atherosclerotic heart disease of native coronary artery without angina pectoris; I25.2 Old myocardial infarction; E66.01 Morbid (severe) obesity due to excess calories; Z68.39 Body mass index [BMI] 39.0-39.9, adult; Z79.01 Long term (current) use of anticoagulants; Z79.1 Long term (current) use of non-steroidal anti-inflammatories (NSAID); Z79.899 Other long term (current) drug therapy; Z88.8 Allergy status to other drugs, medicaments and biological substances; Z87.891 Personal history of nicotine dependence; Z98.890 Other specified postprocedural states; Z79.82 Long term (current) use of aspirin; Z82.49 Family history of ischemic heart disease and other diseases of the circulatory system; Z82.3 Family history of stroke

== ENCOUNTER 2019-01-22 15:15 | Emergency (ER) | payer OTHER ==
[~2019-01-22] VITALS: Ht 185.4 cm; Wt 131.5 kg
--- NOTE | ~2019-01-22 | EKG ---
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1950 Requested By: EPYTON GUERRERO DNP Order Number: [id number] Reading MD: Measurements Intervals [place] Rate: 84 P: -85 [place]: 196 QRS: -52 QRSD: 126 T: 49 QT: 419 QTc: 496 Interpretive Statements Sinus or ectopic atrial rhythm Atrial premature complexes Right bundle branch block Inferior infarct, old Compared to ECG 09/17/2018 17:23:47 Ectopic atrial rhythm now present Atrial premature complex(es) now present Myocardial infarct finding now present Sinus rhythm no longer present First degree AV block no longer present ST (T wave) deviation no longer present CM:EKGRPT:ELECTROCARDIOGRAM REPORT [id number] PEYTON GUERRERO DNP EPIPHANY DRAFT REPORT PEYTON GUERRERO DNP
[2019-01-22 15:15] VITALS: BP 109/44
[~2019-01-22 15:15] MED LIST changes: -PREDNISONE50 MG PO; -TESSALON PERLE100 MG PO
[2019-01-22 15:59] LABS: BASO % 0.7 % (0.0-1.0); EOS # 0.2 10*3/uL (0.0-0.4); EOS % 3.7 % (1.0-4.0); HEMATOCRIT 40.4 % (42.0-52.0); HEMOGLOBIN 12.8 g/dl (14.0-18.0); LYMPH # 1.5 10*3/uL (1.3-4.4); LYMPH % 23.6 % (27.0-41.0); MEAN CELL VOLUME 91.8 fl (80.0-94.0); MEAN CORPUSCULAR HGB 29.1 pg (27.0-31.0); MEAN CORPUSCULAR HGB CONC 31.7 g/dl (33.0-37.0); MEAN PLATELET VOLUME 11.5 fl (9.6-12.3); MONO # 0.8 10*3/uL (0.1-1.0); MONO % 12.4 % (3.0-9.0); NEUT # 3.6 10*3/uL (2.3-7.9); NEUT % 59.3 % (47.0-73.0); PLATELET COUNT AUTOMATED 125 10*3/uL (130-400); RED CELL DISTRI WIDTH 15.1 % (0-14.5); WHITE BLOOD COUNT 6.1 10*3/uL (4.8-10.8)
[2019-01-22 16:21] LABS: ACT PARTIAL THROMBO TIME 20.7 SECONDS (20.8-31.5)
[2019-01-22 16:24] LABS: ALBUMIN 3.2 gm/dl (3.1-4.5); ALKALINE PHOSPHATASE 113 U/L (45-117); BUN 27 mg/dl (7-24); CHLORIDE 106 mmol/L (98-107); LIPASE 126 U/L (73-393); POTASSIUM 4.1 mmol/L (3.5-5.1); SGOT/AST 13 IU/L (3-35); SGPT/ALT 32 U/L (12-78); SODIUM 141 mmol/L (136-145); TOTAL PROTEIN 6.9 gm/dL (6.4-8.2); TROPONIN I < 0.015 ng/ml (<0.045)
[2019-01-22] MEDS ORDERED: PREDNISONE50 MG PO (16:52)
[2019-01-22] MEDS ORDERED: DOXYCYCLINE100 M3 PO (16:52)
[2019-01-22] MEDS ORDERED: TESSALON PERLE100 MG PO (16:52)
== END 2019-01-22 17:36 | disposition home or self-care (01) ==
LOC: ED 15:15
PROVIDERS: Nurse Practitioner Family
DX: J44.1 Chronic obstructive pulmonary disease with (acute) exacerbation (principal); I11.0 Hypertensive heart disease with heart failure; I50.9 Heart failure, unspecified; I25.2 Old myocardial infarction; E11.9 Type 2 diabetes mellitus without complications; K21.9 Gastro-esophageal reflux disease without esophagitis; E78.5 Hyperlipidemia, unspecified; I48.91 Unspecified atrial fibrillation; Z88.8 Allergy status to other drugs, medicaments and biological substances; Z79.82 Long term (current) use of aspirin; Z79.899 Other long term (current) drug therapy; Z79.4 Long term (current) use of insulin; Z79.84 Long term (current) use of oral hypoglycemic drugs; Z87.891 Personal history of nicotine dependence

== ENCOUNTER → 2019-02-22 | Outpatient (CLI) | payer OTHER ==
[~2019-02-22] MED LIST changes: +DOXYCYCLINE MO100 M1 PO; +MUCINEX ER600 MG PO; +PREDNISONE50 MG PO; +SPIRIVA18 MCG PO; +SYMB80 INH; +TESSALON PERLE100 MG PO
[2019-02-22 09:38] LABS: BASO # 0.1 10*3/uL (0.0-0.1); BASO % 0.9 % (0.0-1.0); EOS # 0.4 10*3/uL (0.0-0.4); EOS % 6.4 % (1.0-4.0); HEMATOCRIT 42.3 % (42.0-52.0); LYMPH # 1.7 10*3/uL (1.3-4.4); LYMPH % 29.1 % (27.0-41.0); MEAN CELL VOLUME 94.4 fl (80.0-94.0); MEAN CORPUSCULAR HGB CONC 30.7 g/dl (33.0-37.0); MEAN PLATELET VOLUME 11.3 fl (9.6-12.3); MONO # 0.9 10*3/uL (0.1-1.0); MONO % 15.1 % (3.0-9.0); NEUT # 2.8 10*3/uL (2.3-7.9); NEUT % 48.2 % (47.0-73.0); PLATELET COUNT AUTOMATED 152 10*3/uL (130-400); RED BLOOD COUNT 4.48 10*6/uL (4.50-5.90); RED CELL DISTRI WIDTH 15.5 % (0-14.5); WHITE BLOOD COUNT 5.8 10*3/uL (4.8-10.8)
[2019-02-22 10:03] LABS: ALBUMIN 3.5 gm/dl (3.1-4.5); CREATININE 1.9 mg/dL (0.70-1.30); POTASSIUM 4.1 mmol/L (3.5-5.1); TOTAL PROTEIN 7.4 gm/dL (6.4-8.2)
== END | disposition home or self-care (01) ==
LOC: LAB 08:42
PROVIDERS: Internal Medicine
DX: J43.9 Emphysema, unspecified (principal); I50.43 Acute on chronic combined systolic (congestive) and diastolic (congestive) heart failure

== ENCOUNTER → 2019-03-07 | Outpatient (CLI) | payer OTHER | END | disposition home or self-care (01) | LOC: RESCLI 02:23 | DX: I13.0 Hypertensive heart and chronic kidney disease with heart failure and stage 1 through stage 4 chronic kidney disease, or unspecified chronic kidney disease (principal); E11.22 Type 2 diabetes mellitus with diabetic chronic kidney disease; N18.3 Chronic kidney disease, stage 3 (moderate); I50.42 Chronic combined systolic (congestive) and diastolic (congestive) heart failure; J44.9 Chronic obstructive pulmonary disease, unspecified; J96.11 Chronic respiratory failure with hypoxia; J30.9 Allergic rhinitis, unspecified; G89.29 Other chronic pain; I48.0 Paroxysmal atrial fibrillation; I25.10 Atherosclerotic heart disease of native coronary artery without angina pectoris; Z79.4 Long term (current) use of insulin; Z79.899 Other long term (current) drug therapy; Z87.891 Personal history of nicotine dependence; Z88.8 Allergy status to other drugs, medicaments and biological substances ==

== ENCOUNTER → 2019-03-07 | Outpatient (CLI) | payer OTHER | END | disposition home or self-care (01) | LOC: CARD 02:20 | DX: I50.42 Chronic combined systolic (congestive) and diastolic (congestive) heart failure (principal) ==

== ENCOUNTER → 2019-03-08 | Outpatient (CLI) | payer OTHER ==
--- NOTE | ~2019-03-08 | PF ---
[place], [place] PULMONARY FUNCTION TEST [facility]: [id number] UNIT #: [id number] ROOM: DOCTOR: HITESH BULL MD,DYLLAN BIRTHDATE: [birth year] DOS: 03/08/2019 Testing was ordered by Dr. Robert Castañeda. HISTORY: Recorded as a 68-year-old male. Height of 73 inches, weight of 295 pounds with BMI of 38.9. The testing was done for assessment of diagnosis of COPD. The patient reported symptoms of shortness of breath with exertion, productive cough and frequent wheezing. Tobacco use noted, 1.5 packs per day for 34 years. Tobacco history reported 22 years ago. SPIROMETRY: The FVC of 2.35 liters, 49% predicted value. FEV1 of 1.44 liters, 39% predicted value. The ratio of FEV1/FVC postbronchodilator is recorded as 61%. A 16% improvement noted in FEV1 and FVC postbronchodilator test. Flow volume loop was suggestive of obstructive lung disease. The lung volumes, thoracic gas volume recorded 106%, residual volume 162%, total lung capacity 88%. RV/TLC ratio 176%. The patient abnormal airway resistance and passive conductance partial improvement post-bronchodilators The lung diffusion moderately decreased at 60% without correction of carbon monoxide hemoglobin values. FINAL IMPRESSION: Current pulmonary function tests were noted with finding consistent with a diagnosis of severe chronic obstructive pulmonary disease and bronchial asthma. DYLLAN PROCTOR MD CM:PFREPORT:PULMONARY FUNCTION TEST [id number] DYLLAN BULL MD
== END | disposition home or self-care (01) ==
LOC: CP 10:15
DX: J44.9 Chronic obstructive pulmonary disease, unspecified (principal)

== ENCOUNTER 2019-04-26 12:00 | Inpatient (IN) | payer OTHER ==
[~2019-04-26] VITALS: Ht 185.4 cm; Wt 137.5 kg
[2019-04-26] VITALS (8 sets, daily range): BP systolic 96–140; BP diastolic 53–109
--- NOTE | ~2019-04-26 | CON ---
[place], [place] REPORT OF CONSULTATION NAME: ANNEL BABCOCK [facility] #: [id number] UNIT #: [id number] ROOM: 528 DOCTOR: ISABEL CONNER DO BIRTHDATE: [birth year] DOS: 04/27/2019 PULMONARY CONSULTATION NOTE REASON FOR CONSULTATION: Shortness of breath. CONSULTED BY: Hospitalist. HISTORY OF PRESENT ILLNESS: The patient is a 68-year-old male who presents to [facility] with complaints of shortness of breath and back pain for the past 3 days. The patient states that he has had a cough with productive sputum as well. The patient states that his shortness of breath is worse when active or trying to lay flat. At home, the patient states he has been compliant with his oxygen of 2.5 to 3 liters. The patient states that he recently was given a course of antibiotics as an outpatient, which did not improve his symptoms. The patient also states that he has 3 weeks of back pain. It is not allowing him to be as active as he would like. The patient states that he has been taking increased doses of Lasix with no relief. The patient admits to 10-15 weight gain over the past few months. PAST MEDICAL HISTORY: The patient has a past medical history of: 1. Atrial fibrillation. 2. Coronary artery disease. 3. Chronic back pain. 4. Chronic combined systolic and diastolic heart failure. 5. Chronic kidney disease stage 3. 6. Chronic obstructive pulmonary disease. 7. Essential hypertension. 8. Renal stones. 9. Myocardial infraction. 10. Morbid obesity. 11. Anemia. 12. Insulin-dependent type 2 diabetes. 13. Vitamin D deficiency. PAST SURGICAL HISTORY: 1. History of back surgery. 2. History of cardiac catheter. SOCIAL HISTORY: The patient does not use drugs. The patient has a history of alcoholism, but quit 4 years ago. The patient has a history of smoking, but quit after his [facility] in 1996. FAMILY HISTORY: Father of an aneurysm. Had a history of hypertension, diabetes. Mother , had a history of diabetes. Sister is at the age of 72. Cause of was cerebral aneurysm rupture. Brother at age 70 from a cerebral aneurysm rupture. HOME MEDICATIONS: Albuterol, amiodarone, Eliquis, aspirin, Tessalon Perles, Dulcolax, Lasix 40 mg per day, glucagon p.r.n., glyburide, [place], insulin, [place], [place] REPORT OF CONSULTATION [facility]: [id number] UNIT #: [id number] ROOM: 528 DOCTOR: ISABEL CONNER DO BIRTHDATE: [birth year] losartan, magnesium, metformin, metoprolol, pantoprazole, potassium. REVIEW OF SYSTEMS: GENERAL: The patient denies fevers, chills or weight loss. The patient reports some weight gain. HEENT: The patient reports nasal discharge and congestion, but the patient denies vision changes or difficulty hearing. CARDIOVASCULAR: The patient reports chest pain on exertion and lower extremity edema. RESPIRATORY: The patient reports shortness of breath, cough, paroxysmal nocturnal dyspnea, sputum production. ABDOMEN: The patient denies abdominal pain, nausea, vomiting, constipation or hematochezia. GENITOURINARY: The patient denies dysuria. NEUROLOGIC: The patient reports dizziness. PSYCHIATRIC: The patient denies substance abuse. ENDOCRINE: The patient denies heat or cold intolerance. SKIN: No new rashes, lesions or ulcers. PHYSICAL EXAMINATION: VITAL SIGNS: The patient's temperature is 98.5, pulse rate 95, respiratory rate 20, blood pressure 151/75, pulse ox 94% on 3 liters by nasal cannula. HEENT: Normocephalic, atraumatic. Trachea is midline. NECK: Supple, nontender, trachea midline. HEART: S1, S2 audible. Regular rate and rhythm. LUNGS: Diminished with some expiratory wheezing. No crackles bilaterally. ABDOMEN: Soft, nontender, obese. EXTREMITIES: 2+ pitting edema to bilateral lower extremities. No erythema or clubbing. NEUROLOGIC: Grossly intact. SKIN: Warm, dry. No rashes visible. LABORATORY DATA: CBC: White count is 7.2, hemoglobin 13, hematocrit 41.7, platelets are 132. Chemistries: Sodium is 141, potassium 5.2, chloride 103, BUN 40, creatinine 3.12. Calcium is 8.7, phosphorus 2.3, mag 3.1. IMAGING: Chest x-ray was performed showing no acute pathology. ASSESSMENT: 1. Acute chronic obstructive pulmonary disease exacerbation. 2. Acute kidney failure. 3. Macrocytic anemia. 4. Ambulatory dysfunction. 5. Obesity. 6. Type 2 diabetes with long-term use of insulin. TREATMENT PLAN: Agree with continuing Solu-Medrol 40 mg b.i.d., breathing treatments and oxygen supplementation. Add Mucinex and sputum culture. Any additional treatment will be based on progression of the patient's illness. Of note, the patient had a recent echo, was 03/07/2019, showed left ventricle [place], [place] REPORT OF CONSULTATION NAME: ANNEL BABCOCK UNIT #: [id number] ROOM: 528 DOCTOR: ISABEL CONNER DO BIRTHDATE: [birth year] ejection fraction was 60% and diastolic function was only minimally impaired. Also plan on getting an ABG just to better delineate the patient's respiratory status. The patient will need a sleep study as an outpatient. Thank you very much for the consultation. Donald Conner DO DYLLAN PROCTOR MD CM:CONSTR:REPORT OF CONSULTATION 0857 04/28/19 1332 interface
--- NOTE | ~2019-04-26 | PR ---
[place], [place] PROGRESS NOTE NAME: ANNEL BABCOCK [facility] #: [id number] UNIT #: [id number] ROOM: 528 DOCTOR: ISABEL CONNER DO BIRTHDATE: [birth year] DOS: 04/28/2019 PULMONARY PROGRESS NOTE SUBJECTIVE: The patient states that he feels a little bit better today. The patient denies chest pain. The patient states he has lower extremity edema and back pain. OBJECTIVE: VITAL SIGNS: The patient's temperature is 97.9, pulse 79, respiratory rate 18, blood pressure 145/79. The patient is 95% on 2 liters nasal cannula. HEENT: Normocephalic, atraumatic. NECK: Supple, nontender, trachea midline. CARDIOVASCULAR: S1, S2 audible. LUNGS: Moderate expiratory wheezes, occasional crackles. ABDOMEN: Soft, obese, nontender. EXTREMITIES: 2+ pitting edema to bilateral lower extremities. CENTRAL NERVOUS SYSTEM: Cranial nerves 2-12 grossly intact. VISIBLE SKIN: No lesions or rashes. MUSCULOSKELETAL: Without acute deformities. LABORATORY DATA: ABG was performed yesterday during the day that showed pH of 7.349, pCO2 of 53.5, pO2 of 83.4 and bicarbonate of 28.5. Repeat after the patient had been on BiPAP showed improvement of the pH to 7.350, pCO2 of 54.8, pO2 of 82.1, bicarbonate of 29.3. The patient's kidney function is also greatly improved today, creatinine went from 2.1 to 1.69. Other labs are unremarkable. ASSESSMENT: 1. Acute exacerbation of chronic obstructive pulmonary disease, failure of outpatient treatment. 2. Eosinophilia on admission, resolved. 3. Uncontrolled hyperglycemia, possibly secondary to corticosteroids. 4. History of atrial fibrillation. 5. Acute congestive heart failure, cor pulmonale could be considered. 6. Morbidly obese. The patient needs sleep study, body habitus is concerning for obstructive sleep apnea. 7. Hypercapnia. PLAN OF TREATMENT: The patient will be put on BiPAP at night, settings of 16/8 to improve hypercapnic respiratory failure. Titrate oxygen supplementation to maintain pulse ox of greater than93%. The patient will be given IV diuretics, IV Lasix 40 mg b.i.d. Kidney function will be monitored. Continue bronchodilators, DuoNeb and antibiotics. Any additional change will be based on progression of illness. Donald Conner DO [place], [place] PROGRESS NOTE NAME: SAD[facility]ANNEL UNIT #: [id number] ROOM: 528 DOCTOR: ISABEL CONNER DO BIRTHDATE: [birth year] DYLLAN PROCTOR MD CM:PNLARISA [id number] ISABEL CONNER DO 04/29/19 0154 interface
--- NOTE | ~2019-04-26 | PR ---
[place], [place] PROGRESS NOTE NAME: ANNEL BABCOCK [facility] #: [id number] UNIT #: [id number] ROOM: 528 DOCTOR: HITESH BULL MD,DYLLAN BIRTHDATE: [birth year] DOS: 04/29/2019 PULMONARY PROGRESS NOTE SUBJECTIVE: The patient has been noted coughing, chest congestion. The patient not expectorating any sputum. Denies symptoms of fever or chills. Denies symptoms of hemoptysis. The patient's shortness of breath has been improving. Denies symptoms of nausea, vomiting, diarrhea, or abdominal pain stated by the patient. He has been noted with gradual reduction and improvement in the edema of the lower extremities. There was no symptom of headache or diplopia stated by the patient. OBJECTIVE: VITAL SIGNS: For the patient, which has been recorded shows a temperature noted as normal. The respiratory rate recorded as 18, heart rate 79, blood pressure of 123/78. The pulse oxygen saturation recorded as 95% on 2.5 liters nasal cannula. HEENT: Examination shows head was atraumatic. Eyes nonicterus. NECK: Supple. CARDIOVASCULAR: S1, S2 is audible. LUNGS: The patient was noted with decreased mild expiratory wheezing, no crackles. ABDOMEN: Soft, nontender. EXTREMITIES: The patient currently has elastic stocking in place with edema. MUSCULOSKELETAL: Without any acute deformity. CENTRAL NERVOUS SYSTEM: Cranial nerves 2-12 intact. LABORATORY DATA: The BMP today: BUN 46, creatinine 1.84, glucose 166. CO2 was 33. The culture of the sputum from yesterday as heavy growth of gram-negative bacilli. The Gram stain of the patient, moderate white blood cells, epithelial cells and few gram-negative bacilli. IMPRESSION: 1. The patient has been currently noted with gradual reduction and improvement with acute exacerbation of chronic obstructive pulmonary disease. 2. Acute congestive heart failure. 3. Acute kidney injury as well. 4. Chronic obesity. 5. [id number] hypoxic respiratory failure. PLAN OF THERAPY: The patient was started on the intravenous Zosyn. Gram-negative coverage of the antibiotic will be discontinued. Continue current dose of steroids. Continuation of bronchodilators. Discharge planning will be decided for the patient tomorrow based on the final culture results availability. Other therapy, plan of management, additional treatment changes will be made based on progression of the illness. [place], [place] PROGRESS NOTE NAME: ANNEL BABCOCK UNIT #: [id number] ROOM: 528 DOCTOR: DYLLAN XAVIER MD BIRTHDATE: [birth year] DYLLAN PROCTOR MD CM:PNTRANS 1410 5 DYLLAN BULL MD 04/30/19216 interface
--- NOTE | ~2019-04-26 | EKG ---
[place], [place] ELECTROCARDIOGRAM REPORT NAME: ANNEL BABCOCK UNIT #: [id number] ROOM: [facility] DOCTOR: EPIPHANY DRAFT REPORT BIRTHDATE: [address] 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1950 Requested By: RENE MARSHALL Order Number: [id number] Reading MD: Pedro Reinoso Measurements Intervals [place] Rate: 86 P: 0 [place]: 232 QRS: -38 QRSD: 132 T: 24 QT: 397 QTc: 475 Interpretive Statements Sinus rhythm Atrial premature complex Prolonged [place] interval Right bundle branch block Minimal ST elevation, lateral leads Compared to ECG 01/22/2019 15:51:17 First degree AV block now present ST (T wave) deviation now present Ectopic atrial rhythm no longer present Myocardial infarct finding no longer present Electronically Signed On 04-26-2019 13:49:41 PDT by Pedro Reinoso CM:EKGRPT:ELECTROCARDIOGRAM REPORT [id number] RENE MARSHALL EPIPHANY DRAFT REPORT RENE MARSHALL
--- NOTE | ~2019-04-26 | CON ---
[place], [place] REPORT OF CONSULTATION NAME: ANNEL BABCOCK [facility] #: [id number] UNIT #: [id number] ROOM: 528 DOCTOR: HITESH BULL MDDYLLAN BIRTHDATE: [birth year] DOS: 04/27/2019 PULMONARY CONSULTATION EVALUATION AND MANAGEMENT CONSULTATION REQUESTED BY: Hospitalist service. REASON FOR CONSULTATION: For the assessment of his ongoing acute abnormal respiratory symptom, exacerbation of COPD. The patient was independently seen and examined in [id number]-on-shud encounter, history was confirmed. Physical examination performed. The labs were reviewed. The note done by the medical lab specialist was approved. The assessment and management for current consultation was personally made after review of the labs and other data. The recommendation, management and any changes were ordered personally after that. The note done by the medical lab specialist was approved as well. HISTORY OF PRESENT ILLNESS: This is a 68-year-old white male patient who has been known to me. The patient's recent office assessment of 04/11/2019 for the assessment of history of COPD and bronchial asthma, chronic hypoxic respiratory failure. The patient has been treated with oral antibiotics for the medical management of the current acute exacerbation of chronic obstructive pulmonary disease, acute tracheobronchitis on 04/11/2019 with Augmentin and prednisone. The patient has taken the medication and failed to show improvement in the respiratory status. The patient was seen in the Emergency Room because of the current symptom. He has been complaining of shortness breath, which was initially noted improvement and later noted with progressive increase for 3 days. He was also noted with symptoms of orthopnea as well. He has developed cough, which was noted worsened with intermittent sputum expectoration. The patient also reported tightness in the chest, but there was no chest pain stated by the patient. He also felt significant improvement at this time and noted difficulty of ambulation because of that as well. He has been assessed in the Emergency Room and currently hospitalized for further medical management with ongoing illnesses. PAST MEDICAL HISTORY: 1. The patient was known with history of uncomplicated severe persistent bronchial asthma. 2. Chronic obstructive pulmonary disease. 3. Chronic hypoxic respiratory failure. 4. Atrial fibrillation. 5. Type 2 diabetes mellitus. 6. Moderate to severe obesity. 7. History of gastroesophageal reflux. SOCIAL HISTORY: The patient lives at home. He is , has 4 children. Tobacco use was noted at age of [age] years old. His maximum tobacco use of 1.5 packs of cigarettes per day until 1996. There was no history of alcohol use, illicit drug use. [place], [place] REPORT OF CONSULTATION NAME: ANNEL BABCOCK UNIT #: [id number] ROOM: 528 DOCTOR: DYLLAN XAVIER MD BIRTHDATE: [birth year] FAMILY HISTORY: His father at age 70 years of complication of lung cancer. Mother at the age of 8282 years old, complication of myocardial infarction. PAST SURGICAL HISTORY: 1. Lumbar laminectomy. 2. Bilateral carpal tunnel release. HOME MEDICATIONS: Which were listed for the patient was amiodarone, Eliquis, aspirin, Symbicort, Lasix 40 mg daily, glyburide, NovoLog, losartan, magnesium oxide, metformin, Protonix, Spiriva, and potassium chloride. The medications which were actively administered this morning were reviewed and noted as use of Protonix, Mucinex, Eliquis, DuoNeb, Rocephin, Zithromax, and other p.r.n. meds. DRUG ALLERGY HISTORY: The patient noted allergies to the CARDIZEM CAUSING HIVES. PHYSICAL EXAMINATION: GENERAL: A 68-year-old white male patient with height of 6 feet 1 inch, weight of 210 pounds, BMI 40.5. VITAL SIGNS: Noted as normal temperature, respiratory rate 18, 20 since admission, heart rate ranged between 82-94, blood pressure 151/75 and 139/70. Pulse oxygen saturation recorded as 90% saturation at rest on room air. The patient was lying on the bed this morning for assessment. HEENT: Head was atraumatic. Eyes nonicterus. NECK: Supple. Severely reduced. Decreased posterior pharyngeal space. High tongue base and crowding of soft tissue structures. CARDIOVASCULAR SYSTEM: S1, S2 is audible. LUNGS: The patient with moderate expiratory wheezing. Occasional crackles of the lung were also present. ABDOMEN: Soft and obese. EXTREMITIES: The patient noted 2-3+ pitting edema. CENTRAL NERVOUS SYSTEM: Mild early cellulitis changes of the skin was also noted. VISIBLE SKIN. Otherwise, no lesions or rashes. CENTRAL NERVOUS SYSTEM: The patient was noted. Cranial nerves 2-12 intact. MUSCULOSKELETAL: Without acute deformity. LABORATORY DATA: CBC this morning, WBC count 8.2, hemoglobin 12.9, platelet count normal. The PT/INR noted as normal. CMP that was done on 04/26/2019, BUN 39, creatinine 2.20, glucose 230. CO2 was 37. CBC done this morning, the patient essentially remains the same as of yesterday. BMP this morning, BUN of 40, creatinine 2.12. Glucose of 213. Chest x-ray that was done noted hyperinflated lung changes of COPD without any acute visible gross pulmonary infiltrates. IMPRESSION: 1. The patient will be currently admitted to the hospital. The patient was [place], [place] REPORT OF CONSULTATION NAME: ANNEL BABCOCK UNIT #: [id number] ROOM: 528 DOCTOR: HITESH BULL MD,DYLLAN BIRTHDATE: [birth year] noted with finding consistent with acute exacerbation of chronic obstructive pulmonary disease as well as bronchial asthma, not responsive to the treatment as an outpatient failed treatment. 2. Evidence of eosinophilia was also noted. 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 3. Uncontrolled hyperglycemia secondary to corticosteroids as well. 4. History of permanent atrial fibrillation noted controlled range. 5. Finding consistent with acute congestive heart failure with possible cor pulmonale would be considered. 6. Clinical assessment for the patient for current body habitus. The patient is highly suggestive of obstructive sleep apnea disorder, which will be requiring additional assessment. 7. Rule out hypercapnia as well. 8. The patient with chronic moderate severe obesity as well. Arterial blood gases which were done for this patient shows pH of 7.34, pCO2 of 53, pO2 83 for 3 liters nasal cannula. 9. Bronchodilator. Continue DuoNeb q.4 hours. PLAN OF TREATMENT: The patient will be started in BiPAP setting of 16/8 to improve the current hypercapnic respiratory failure. Titrate oxygen supplementation to maintain pulse ox 92%. Start the patient on IV Lasix 40 mg b.i.d., closely monitor the patient's kidney functions as well. The assessment of the patient outside additional diagnosis of abnormal kidney function, possibly chronic kidney disease stage 3, would be considered with acute component. The patient can be completely excluded. Bronchodilator. Continue DuoNeb q.4h. Continuation of current antibiotics. Oxygen supplementation at this time. Nonuse of BiPAP. The patient will maintain pulse ox 92% or greater. Supportive therapy, plan of management, care plan. Additional treatment changes will be made for the patient based on progression of the illness. Supportive care, other treatment to be continued previously in progress. Daily lab monitor for the patient was also ordered. Sputum for Gram stain culture will be obtained as well. Thanks for allowing me to participate in the care of this patient. DYLLAN PROCTOR MD CM:CONSTR:REPORT OF CONSULTATION 1859 04/28/19 0559 interface
--- NOTE | ~2019-04-26 | PR ---
[place], [place] PROGRESS NOTE NAME: ANNEL BABCOCK UNIT #: [id number] ROOM: 528 DOCTOR: DYLLAN XAVIER MD BIRTHDATE: [birth year] DOS: 05/01/2019 SUBJECTIVE: The patient was independently seen and examined in uhiz-rd-[id number] encounter, history was confirmed. Labs reviewed. The assessment and management today was personally completed. Note done by the medical claims assistant was approved as well. He has been noted comfortable at this time. Resting on the bed, was continued on diuretic high dose yesterday in the last 24 hours. Edema of the extremities were resolving. There were no symptoms of chest pain or wheezing. OBJECTIVE: VITAL SIGNS: Normal temperature, respiratory rate 20, heart rate 84, blood pressure 139/83. Pulse oxygen saturation recorded 2.5 liters at 100% saturation. HEENT: Examination shows head was atraumatic. Eyes nonicterus. NECK: Supple. CARDIOVASCULAR: S1, S2 audible. LUNGS: The patient was noted with decreased breath sounds in the lungs bilaterally. ABDOMEN: Soft and nontender. Bowel sounds present. EXTREMITIES: Noted resolving edema of the resolution still noted incomplete. LABORATORY DATA: BMP: BUN 42, creatinine 1.76. Potassium was normal. Sodium was normal. CBC; WBC count 7.9, hemoglobin 13.4, and platelet count normal. IMPRESSION: 1. The patient has been noted currently comfortable, resting on the bed this morning with resolving acute congestive heart failure with acute exacerbation of chronic obstructive pulmonary disease. 2. Chronic hypoxic respiratory failure as well. PLAN OF MANAGEMENT: No changes in the plan of care at this time except discharge planning could be started after receiving both doses of Lasix. The patient could be discharged on high dose of diuretic that normally taking with congestive heart failure. Tapering dose of prednisone and other therapy, plan of management as well. [place], [place] PROGRESS NOTE NAME: ANNEL BABCOCK [facility] UNIT #: [id number] ROOM: 528 DOCTOR: DYLLAN XAVIER MD BIRTHDATE: [birth year] DYLLAN PROCTOR MD CM:PNTRANS [phone] DYLLAN BULL MD 05/11/19 0845 interface
--- NOTE | ~2019-04-26 | PR ---
[place], [place] PROGRESS NOTE NAME: ANNEL BABCOCK [facility] #: [id number] UNIT #: [id number] ROOM: 528 DOCTOR: HITESH BULL MD,DYLLAN BIRTHDATE: [birth year] DOS: 04/30/2019 PULMONARY PROGRESS NOTE SUBJECTIVE: The patient was still noted edema of upper and lower extremities. Shortness of breath is improving. Small amount of sputum expectoration reported by the cultures of the sputum noted Enterobacter cloacae. He denies symptoms of hemoptysis. Denies symptoms of nausea, vomiting, diarrhea, or abdominal pain. No acute chest pain. The patient stated that he has been noted intermittent insomnia, but slept better last night. Using the BiPAP as ordered. Remaining systems were reviewed and they were noted all negative. OBJECTIVE: VITAL SIGNS: Normal temperature, respiratory rate 20, heart rate 87, blood pressure of 109/68. Pulse oxygen saturation on 2.5 liter nasal cannula 95% saturation. HEENT: Examination shows head was atraumatic. Eyes nonicterus. NECK: Supple. CARDIOVASCULAR: S1, S2 audible. LUNGS: Noted without any crackles. There was no wheezing. Decreased breath sounds in the lungs bilaterally. ABDOMEN: Soft, obese, nontender. EXTREMITIES: With 2+ pitting edema in upper and lower extremities. VISIBLE SKIN: No lesions or rashes. CENTRAL NERVOUS SYSTEM: Intact. MUSCULOSKELETAL: Without acute deformities. LABORATORY DATA: CMP today, BUN 41, creatinine 1.78, glucose 160, pCO2 of 38. Culture of the sputum was noted with Enterobacter cloacae noted sensitive to cephalosporins, fluoroquinolones, and other antibiotics. The chest x-ray that was ordered and obtained this morning was assessed and compared with previous chest x-ray was noted without any pleural effusion. IMPRESSION: 1. Congestive heart failure with acute exacerbation of chronic obstructive pulmonary disease. 2. Chronic obesity with suspected obstructive sleep apnea disorder. 3. Enterobacter cloacae. 4. Acute bronchitis. PLAN OF TREATMENT: The patient will be continued diuretic. Monitor kidney functions. Solu-Medrol dose certainly will be decreased to 40 mg daily. Continuation of anticoagulation and antibiotics as IV Zosyn was started yesterday, but based on the sensitivity results of the current sputum culture, the antibiotic spectrum certainly would be shortened and with the use of doxycycline 100 mg p.o. b.i.d. Zosyn will be discontinued. Monitor respiratory status in the next 24 hours. Possible consideration home discharge with the further improvement in respiratory status. [place], [place] PROGRESS NOTE NAME: ANNEL BABCOCK UNIT #: [id number] ROOM: 528 DOCTOR: HITESH BULL MD,DYLLAN BIRTHDATE: [birth year] DYLLAN PROCTOR MD CM:PNTRANS [id number] DYLLAN BULL MD 05/11/19 0843 interface
--- NOTE | ~2019-04-26 | PR ---
[place], [place] [facility]GRESS [id number] UN[facility] #: [id number] ROOM: 528 DOCTOR: HITESH BULL MD,DYLLAN BIRTHDATE: [birth year] DOS: 04/28/2019 PULMONARY PROGRESS NOTE SUBJECTIVE: The patient was independently seen and examined in [id number]-cd-[id number] encounter, history was confirmed. Labs reviewed. Note done by the medical transcription approved as well. Assessment and management of the patient today's visit was personally completed. The patient has been noted partial improvement in respiratory symptom, but still noted with the symptoms of coughing, chest congestion, shortness breath, but still noted edema of lower extremity. Denies symptoms of fever or chills. Unkempt abdominal pain, nausea, vomiting, diarrhea, abdominal pain, hematemesis, melena, or hematochezia. Denies symptoms of headache or diplopia. Remaining systems were reviewed. They were noted all negative. OBJECTIVE: VITAL SIGNS: For the patient which were recorded shows a normal temperature, respiratory rate of 18, heart rate 79, blood pressure 145/71. Intake was 2080 mL, output 2500 mL, negative 420 mL. Pulse oxygen saturation on 2.5 liter nasal cannula was 98% saturation. HEENT: Examination shows head was atraumatic. Eyes nonicterus. NECK: Supple. CARDIOVASCULAR: S1, S2 audible. LUNGS: Noted without any wheezing or crackles at the present time. ABDOMEN: Soft and nontender. Bowel sounds present. EXTREMITIES: Noted 2+ edema bilateral lower extremity. MUSCULOSKELETAL: Without acute deformities. CENTRAL NERVOUS SYSTEM: Intact. SKIN: No lesions or rashes. LABORATORY DATA: Arterial blood gas that was done yesterday was using the BiPAP, pH 7.35, pCO2 of 54, pO2 of 82.1. Other lab yesterday, glucose 128, BUN 42, creatinine 1.69. IMPRESSION: 1. The patient who has been currently noted with nxzkr-hv-iichznq hypercapnic hypoxic respiratory failure. 2. Acute exacerbation of chronic obstructive pulmonary disease as well in conjunction with acute congestive heart failure and cor pulmonale combination was considered. 3. Resolving acute kidney with diuresis. PLAN OF TREATMENT: No changes in the plan of care at this time. Continue the patient's current therapy, plan of management noted effective. Close monitor respiratory status. Continue the BiPAP as ordered and other therapies, and plan of management. Usual care. [place], [place] PROGRESS NOTE NAME: SADIQANNEL UNIT #: [id number] ROOM: 528 DOCTOR: DYLLAN XAVIER MD BIRTHDATE: [birth year] DYLLAN PROCTOR MD CM:PNTRANS [phone] DYLLAN BULL MD 05/11/19 0841 interface
[~2019-04-26 12:00] MED LIST changes: -DOXYCYCLINE MO100 M1 PO; -MUCINEX ER600 MG PO; -SPIRIVA18 MCG PO; -SYMB80 INH
[2019-04-26 12:51] LABS: BASO % 0.2 % (0.0-1.0); EOS # 0.2 10*3/uL (0.0-0.4); EOS % 2.3 % (1.0-4.0); HEMATOCRIT 41.4 % (42.0-52.0); HEMOGLOBIN 12.9 g/dl (14.0-18.0); LYMPH # 1.6 10*3/uL (1.3-4.4); LYMPH % 19.9 % (27.0-41.0); MEAN CELL VOLUME 95.8 fl (80.0-94.0); MEAN CORPUSCULAR HGB 29.9 pg (27.0-31.0); MEAN CORPUSCULAR HGB CONC 31.2 g/dl (33.0-37.0); MEAN PLATELET VOLUME 11.5 fl (9.6-12.3); MONO # 0.9 10*3/uL (0.1-1.0); MONO % 10.7 % (3.0-9.0); NEUT # 5.4 10*3/uL (2.3-7.9); NEUT % 66.5 % (47.0-73.0); PLATELET COUNT AUTOMATED 136 10*3/uL (130-400); RED BLOOD COUNT 4.32 10*6/uL (4.50-5.90); RED CELL DISTRI WIDTH 16.2 % (0-14.5); WHITE BLOOD COUNT 8.2 10*3/uL (4.8-10.8)
[2019-04-26 13:03] LABS: INTERNATIONAL NORM RATIO 0.9 (2.0-3.5)
[2019-04-26 13:08] LABS: ALBUMIN 3.2 gm/dl (3.1-4.5); ALKALINE PHOSPHATASE 100 U/L (45-117); BUN 39 mg/dl (7-24); CHLORIDE 104 mmol/L (98-107); POTASSIUM 4.1 mmol/L (3.5-5.1); SGOT/AST 15 IU/L (3-35); SGPT/ALT 35 U/L (12-78); SODIUM 141 mmol/L (136-145); TOTAL PROTEIN 6.7 gm/dL (6.4-8.2)
[2019-04-26 13:10] LABS: TROPONIN I < 0.015 ng/ml (<0.045)
[2019-04-26] MEDS ORDERED: SYMB80 INH (18:55)
[2019-04-26] MEDS ORDERED: SPIRIVA18 MCG PO (18:56)
[2019-04-27] VITALS: BP 151/75; BP 95/77
[2019-04-27 06:35] LABS: EOS % 0.1 % (1.0-4.0); HEMATOCRIT 41.7 % (42.0-52.0); LYMPH # 0.5 10*3/uL (1.3-4.4); LYMPH % 7.5 % (27.0-41.0); MEAN CELL VOLUME 96.3 fl (80.0-94.0); MEAN CORPUSCULAR HGB CONC 31.2 g/dl (33.0-37.0); MEAN PLATELET VOLUME 11.8 fl (9.6-12.3); MONO # 0.1 10*3/uL (0.1-1.0); MONO % 1.8 % (3.0-9.0); NEUT # 6.5 10*3/uL (2.3-7.9); PLATELET COUNT AUTOMATED 132 10*3/uL (130-400); RED BLOOD COUNT 4.33 10*6/uL (4.50-5.90); WHITE BLOOD COUNT 7.2 10*3/uL (4.8-10.8)
[2019-04-27 06:45] LABS: CREATININE 2.12 mg/dL (0.70-1.30); PHOSPHOROUS 2.3 mg/dL (2.5-4.9)
[2019-04-27 07:05] LABS: POTASSIUM 5.2 mmol/L (3.5-5.1)
[2019-04-27 08:10] VITALS: BP 138/88
[2019-04-27 08:55] LABS: VITAMIN D, 25-HYDROXY 22.7 ng/mL (30-100)
[2019-04-27 10:08] LABS: ABG BASE EXCESS 2.6 mmol/L (-2.0-2.0); ABG HCO3 28.8 mmol/l (22-26); ABG O2 SATURATION 96.1 % (95-97); ARTERIAL BLOOD GAS PCO2 53.5 mmHg (35-45); ARTERIAL BLOOD GAS PH 7.349 (7.35-7.45); ARTERIAL BLOOD GAS PO2 83.4 mmHg (80-90)
[2019-04-27 12:00] VITALS: BP 136/73
[2019-04-27 16:00] VITALS: BP 120/82
[2019-04-27 20:00] VITALS: BP 131/80
[2019-04-27 21:30] LABS: ABG BASE EXCESS 3.2 mmol/L (-2.0-2.0); ABG HCO3 29.6 mmol/l (22-26); ABG O2 SATURATION 95.7 % (95-97); ARTERIAL BLOOD GAS PCO2 54.8 mmHg (35-45); ARTERIAL BLOOD GAS PH 7.35 (7.35-7.45); ARTERIAL BLOOD GAS PO2 82.1 mmHg (80-90)
[2019-04-28] VITALS: BP 129/79
[2019-04-28 07:00] LABS: ALBUMIN 3.4 gm/dl (3.1-4.5); CREATININE 1.69 mg/dL (0.70-1.30); POTASSIUM 4.3 mmol/L (3.5-5.1); TOTAL PROTEIN 6.8 gm/dL (6.4-8.2)
[2019-04-28 08:00] VITALS: BP 145/79
[2019-04-28 12:00] VITALS: BP 139/83
[2019-04-28 16:00] VITALS: BP 141/86
[2019-04-28 20:00] VITALS: BP 131/89
[2019-04-29] VITALS: BP 141/78
[2019-04-29 07:07] LABS: ALBUMIN 3.5 gm/dl (3.1-4.5); CREATININE 1.84 mg/dL (0.70-1.30); POTASSIUM 4.2 mmol/L (3.5-5.1); TOTAL PROTEIN 7.2 gm/dL (6.4-8.2)
[2019-04-29 08:00] VITALS: BP 123/78
[2019-04-29 16:00] VITALS: BP 112/61
[2019-04-29 20:00] VITALS: BP 137/74
[2019-04-30] VITALS: BP 123/70
[2019-04-30 07:30] LABS: ALBUMIN 3.4 gm/dl (3.1-4.5); CREATININE 1.78 mg/dL (0.70-1.30); POTASSIUM 4.4 mmol/L (3.5-5.1); TOTAL PROTEIN 7.2 gm/dL (6.4-8.2)
[2019-04-30 08:00] VITALS: BP 142/78
[2019-04-30 12:00] VITALS: BP 109/68
[2019-04-30 16:00] VITALS: BP 139/82
[2019-04-30 20:00] VITALS: BP 134/88
[2019-05-01] VITALS: BP 141/80
[2019-05-01 07:25] LABS: BASO % 0.1 % (0.0-1.0); EOS % 0.1 % (1.0-4.0); HEMATOCRIT 42.3 % (42.0-52.0); HEMOGLOBIN 13.4 g/dl (14.0-18.0); LYMPH # 0.9 10*3/uL (1.3-4.4); LYMPH % 11.3 % (27.0-41.0); MEAN CELL VOLUME 94.8 fl (80.0-94.0); MEAN CORPUSCULAR HGB CONC 31.7 g/dl (33.0-37.0); MEAN PLATELET VOLUME 12.1 fl (9.6-12.3); MONO # 0.9 10*3/uL (0.1-1.0); MONO % 10.7 % (3.0-9.0); NEUT # 6.1 10*3/uL (2.3-7.9); NEUT % 76.9 % (47.0-73.0); PLATELET COUNT AUTOMATED 141 10*3/uL (130-400); RED BLOOD COUNT 4.46 10*6/uL (4.50-5.90); RED CELL DISTRI WIDTH 15.9 % (0-14.5); WHITE BLOOD COUNT 7.9 10*3/uL (4.8-10.8)
[2019-05-01 08:00] VITALS: BP 139/83
[2019-05-01 08:06] LABS: CREATININE 1.76 mg/dL (0.70-1.30); POTASSIUM 4.1 mmol/L (3.5-5.1)
[2019-05-01 11:50] VITALS: BP 151/84
[2019-05-01] MEDS ORDERED: PREDNISONE10 MG PO (14:56)
[2019-05-01] MEDS ORDERED: DOXYCYCLINE MO100 M1 PO (14:56)
[2019-05-01] MEDS ORDERED: MUCINEX ER600 MG PO (14:56)
== END 2019-05-01 15:15 | disposition home or self-care (01) | DRG 291 ==
LOC: ED 12:00 → EDHOLD 14:42 → 5E 14:42
PROVIDERS: Family Medicine; Internal Medicine; Internal Medicine Critical Care Medicine; Nurse Practitioner Family; ADMIT Internal Medicine
PROC: 5A09357 Assistance with Respiratory Ventilation, Less than 24 Consecutive Hours, Continuous Positive Airway Pressure (ICD-10-PCS; principal; 2019-04-27)
PROC: 5A09357 Assistance with Respiratory Ventilation, Less than 24 Consecutive Hours, Continuous Positive Airway Pressure (ICD-10-PCS; 2019-04-30)
DX: I13.0 Hypertensive heart and chronic kidney disease with heart failure and stage 1 through stage 4 chronic kidney disease, or unspecified chronic kidney disease (principal); J18.9 Pneumonia, unspecified organism; N17.0 Acute kidney failure with tubular necrosis; I50.43 Acute on chronic combined systolic (congestive) and diastolic (congestive) heart failure; J96.21 Acute and chronic respiratory failure with hypoxia; J96.22 Acute and chronic respiratory failure with hypercapnia; J44.1 Chronic obstructive pulmonary disease with (acute) exacerbation; E44.1 Mild protein-calorie malnutrition; J44.0 Chronic obstructive pulmonary disease with (acute) lower respiratory infection; Z68.41 Body mass index [BMI] 40.0-44.9, adult; J20.9 Acute bronchitis, unspecified; B96.89 Other specified bacterial agents as the cause of diseases classified elsewhere; D72.1 Eosinophilia; E11.22 Type 2 diabetes mellitus with diabetic chronic kidney disease; G89.29 Other chronic pain; M54.9 Dorsalgia, unspecified; I25.10 Atherosclerotic heart disease of native coronary artery without angina pectoris; I48.2 Chronic atrial fibrillation; E55.9 Vitamin D deficiency, unspecified; D53.9 Nutritional anemia, unspecified; R26.2 Difficulty in walking, not elsewhere classified; E11.65 Type 2 diabetes mellitus with hyperglycemia; N18.3 Chronic kidney disease, stage 3 (moderate); E66.01 Morbid (severe) obesity due to excess calories; J45.50 Severe persistent asthma, uncomplicated; K21.9 Gastro-esophageal reflux disease without esophagitis; T38.0X5A Adverse effect of glucocorticoids and synthetic analogues, initial encounter; Y92.89 Other specified places as the place of occurrence of the external cause; I25.2 Old myocardial infarction; Z87.442 Personal history of urinary calculi; Z87.891 Personal history of nicotine dependence; Z79.4 Long term (current) use of insulin; Z82.49 Family history of ischemic heart disease and other diseases of the circulatory system; Z83.3 Family history of diabetes mellitus; Z84.89 Family history of other specified conditions; Z79.899 Other long term (current) drug therapy; Z79.82 Long term (current) use of aspirin

== ENCOUNTER → 2019-05-26 | Outpatient (CLI) | payer OTHER ==
[~2019-05-26] MED LIST changes: +DOXYCYCLINE MO100 M1 PO; +MUCINEX ER600 MG PO; +SPIRIVA18 MCG PO; +SYMB80 INH
== END | disposition home or self-care (01) ==
LOC: RESCLI 01:02
DX: E66.01 Morbid (severe) obesity due to excess calories (principal); I13.0 Hypertensive heart and chronic kidney disease with heart failure and stage 1 through stage 4 chronic kidney disease, or unspecified chronic kidney disease; E11.22 Type 2 diabetes mellitus with diabetic chronic kidney disease; I50.43 Acute on chronic combined systolic (congestive) and diastolic (congestive) heart failure; N18.3 Chronic kidney disease, stage 3 (moderate); K21.9 Gastro-esophageal reflux disease without esophagitis; I48.2 Chronic atrial fibrillation; J44.9 Chronic obstructive pulmonary disease, unspecified; E11.42 Type 2 diabetes mellitus with diabetic polyneuropathy; Z79.899 Other long term (current) drug therapy; Z88.8 Allergy status to other drugs, medicaments and biological substances; Z87.891 Personal history of nicotine dependence

== ENCOUNTER → 2019-07-11 | Outpatient (CLI) | payer OTHER ==
[2019-07-11 11:19] LABS: CREATININE 1.69 mg/dL (0.70-1.30); POTASSIUM 4.7 mmol/L (3.5-5.1)
== END | disposition home or self-care (01) ==
LOC: RESCLI 00:30
PROVIDERS: Internal Medicine
DX: I13.0 Hypertensive heart and chronic kidney disease with heart failure and stage 1 through stage 4 chronic kidney disease, or unspecified chronic kidney disease (principal); E11.22 Type 2 diabetes mellitus with diabetic chronic kidney disease; I50.42 Chronic combined systolic (congestive) and diastolic (congestive) heart failure; N18.3 Chronic kidney disease, stage 3 (moderate); M21.832 Other specified acquired deformities of left forearm; K42.9 Umbilical hernia without obstruction or gangrene; E11.65 Type 2 diabetes mellitus with hyperglycemia; I48.91 Unspecified atrial fibrillation; E55.9 Vitamin D deficiency, unspecified; J44.9 Chronic obstructive pulmonary disease, unspecified; I48.2 Chronic atrial fibrillation; K21.9 Gastro-esophageal reflux disease without esophagitis; J96.11 Chronic respiratory failure with hypoxia; J30.9 Allergic rhinitis, unspecified; G89.29 Other chronic pain; I48.0 Paroxysmal atrial fibrillation; I25.10 Atherosclerotic heart disease of native coronary artery without angina pectoris; E11.42 Type 2 diabetes mellitus with diabetic polyneuropathy; E66.01 Morbid (severe) obesity due to excess calories; Z79.4 Long term (current) use of insulin; Z79.899 Other long term (current) drug therapy

== ENCOUNTER → 2019-08-08 | Outpatient (CLI) | payer OTHER | END | disposition home or self-care (01) | LOC: US 14:32 | DX: N28.1 Cyst of kidney, acquired (principal); N20.0 Calculus of kidney; N18.3 Chronic kidney disease, stage 3 (moderate) ==

== ENCOUNTER → 2019-10-23 | Outpatient (CLI) | payer OTHER ==
[2019-10-23 11:06] LABS: POTASSIUM 4.2 mmol/L (3.5-5.1)
[2019-10-23 11:07] LABS: CREATININE 1.8 mg/dL (0.70-1.30)
== END | disposition home or self-care (01) ==
LOC: LAB 10:16
PROVIDERS: Internal Medicine
DX: E11.22 Type 2 diabetes mellitus with diabetic chronic kidney disease (principal); N18.9 Chronic kidney disease, unspecified

== ENCOUNTER → 2019-10-24 | Outpatient (CLI) | payer OTHER | END | disposition home or self-care (01) | LOC: RESCLI 01:31 | DX: Z12.11 Encounter for screening for malignant neoplasm of colon (principal); I13.0 Hypertensive heart and chronic kidney disease with heart failure and stage 1 through stage 4 chronic kidney disease, or unspecified chronic kidney disease; E11.22 Type 2 diabetes mellitus with diabetic chronic kidney disease; N18.3 Chronic kidney disease, stage 3 (moderate); I50.43 Acute on chronic combined systolic (congestive) and diastolic (congestive) heart failure; M21.832 Other specified acquired deformities of left forearm; K42.9 Umbilical hernia without obstruction or gangrene; E11.65 Type 2 diabetes mellitus with hyperglycemia; I50.42 Chronic combined systolic (congestive) and diastolic (congestive) heart failure; I48.91 Unspecified atrial fibrillation; E55.9 Vitamin D deficiency, unspecified; J44.9 Chronic obstructive pulmonary disease, unspecified; I48.20 Chronic atrial fibrillation, unspecified; K21.9 Gastro-esophageal reflux disease without esophagitis; J96.11 Chronic respiratory failure with hypoxia; J30.9 Allergic rhinitis, unspecified; G89.29 Other chronic pain; I48.0 Paroxysmal atrial fibrillation; I25.10 Atherosclerotic heart disease of native coronary artery without angina pectoris; E11.42 Type 2 diabetes mellitus with diabetic polyneuropathy; E66.01 Morbid (severe) obesity due to excess calories; Z79.4 Long term (current) use of insulin; Z79.899 Other long term (current) drug therapy; Z88.8 Allergy status to other drugs, medicaments and biological substances ==

== ENCOUNTER → 2019-11-20 | Day surgery (SDC) | payer OTHER ==
[~2019-11-20] VITALS: Ht 185.4 cm; Wt 135.2 kg
[~2019-11-20] MED LIST changes: +LANTUS SOL100 UNIT/1 SQ; +NEURONTIN100 MG PO
[2019-11-20 08:12] VITALS: BP 149/98
[2019-11-20 08:30] VITALS: BP 120/71
[2019-11-20 08:45] VITALS: BP 128/75
--- NOTE | 2019-11-20 08:52 | NUR ---
IV FLUIDS DISCONTINUED.
[2019-11-20 08:57] VITALS: BP 135/80
== END | disposition home or self-care (01) ==
LOC: SDC 11-16 08:00
DX: Z12.11 Encounter for screening for malignant neoplasm of colon (principal); E11.9 Type 2 diabetes mellitus without complications; I25.10 Atherosclerotic heart disease of native coronary artery without angina pectoris; E78.5 Hyperlipidemia, unspecified; I11.0 Hypertensive heart disease with heart failure; I50.9 Heart failure, unspecified; I48.91 Unspecified atrial fibrillation; J44.9 Chronic obstructive pulmonary disease, unspecified; I25.2 Old myocardial infarction; Z88.8 Allergy status to other drugs, medicaments and biological substances; Z87.891 Personal history of nicotine dependence; Z98.890 Other specified postprocedural states; Z82.49 Family history of ischemic heart disease and other diseases of the circulatory system; Z83.3 Family history of diabetes mellitus

== ENCOUNTER → 2019-12-29 | Outpatient (CLI) | payer OTHER ==
[~2019-12-29] MED LIST changes: +BYETTA5 MCG/0.02 SC; +FINASTERIDE5 M1 PO; +TAMSULOSIN HCL0.4 MG PO; +VITAMIN D32000 UNI1 PO
[2019-12-29 11:53] LABS: CREATININE 1.76 mg/dL (0.70-1.30); POTASSIUM 4.3 mmol/L (3.5-5.1)
== END | disposition home or self-care (01) ==
LOC: LAB 10:41
PROVIDERS: Internal Medicine
DX: E11.22 Type 2 diabetes mellitus with diabetic chronic kidney disease (principal); N18.9 Chronic kidney disease, unspecified

== ENCOUNTER → 2020-01-02 | Outpatient (CLI) | payer OTHER | END | disposition home or self-care (01) | LOC: RESCLI 01:05 | DX: Z12.12 Encounter for screening for malignant neoplasm of rectum (principal); Z12.11 Encounter for screening for malignant neoplasm of colon; E11.42 Type 2 diabetes mellitus with diabetic polyneuropathy; I13.0 Hypertensive heart and chronic kidney disease with heart failure and stage 1 through stage 4 chronic kidney disease, or unspecified chronic kidney disease; M21.832 Other specified acquired deformities of left forearm; K42.9 Umbilical hernia without obstruction or gangrene; E11.65 Type 2 diabetes mellitus with hyperglycemia; E11.22 Type 2 diabetes mellitus with diabetic chronic kidney disease; I50.42 Chronic combined systolic (congestive) and diastolic (congestive) heart failure; N18.3 Chronic kidney disease, stage 3 (moderate); I48.91 Unspecified atrial fibrillation; E55.9 Vitamin D deficiency, unspecified; I50.43 Acute on chronic combined systolic (congestive) and diastolic (congestive) heart failure; J44.9 Chronic obstructive pulmonary disease, unspecified; I48.20 Chronic atrial fibrillation, unspecified; K21.9 Gastro-esophageal reflux disease without esophagitis; J96.11 Chronic respiratory failure with hypoxia; E66.01 Morbid (severe) obesity due to excess calories; J30.9 Allergic rhinitis, unspecified; I25.10 Atherosclerotic heart disease of native coronary artery without angina pectoris; G89.29 Other chronic pain; I48.0 Paroxysmal atrial fibrillation; Z79.899 Other long term (current) drug therapy; Z88.8 Allergy status to other drugs, medicaments and biological substances; Z79.4 Long term (current) use of insulin; Z87.891 Personal history of nicotine dependence ==

== ENCOUNTER 2020-01-22 18:56 | Inpatient (IN) | payer OTHER ==
[2020-01-22] VITALS (9 sets, daily range): BP systolic 81–124; BP diastolic 44–60
[~2020-01-22] VITALS: Ht 185.4 cm; Wt 134.9 kg
[~2020-01-22 18:56] MED LIST changes: -BYETTA5 MCG/0.02 SC; -FINASTERIDE5 M1 PO; -TAMSULOSIN HCL0.4 MG PO; -VITAMIN D32000 UNI1 PO
--- NOTE | 2020-01-22 19:32 | NUR ---
PT PROMPTED FOR URINE SPECIMEN AND PROVIDED BEDSIDE URINAL.
--- NOTE | 2020-01-22 19:34 | NUR ---
PT DENIES ANY OPEN WOUNDS OR SORES.
[2020-01-22 19:45] LABS: HEMATOCRIT 46.8 % (42.0-52.0); MEAN CELL VOLUME 97.1 fl (80.0-94.0); MEAN CORPUSCULAR HGB 31.1 pg (27.0-31.0); MEAN CORPUSCULAR HGB CONC 32.1 g/dl (33.0-37.0); MEAN PLATELET VOLUME 12.2 fl (9.6-12.3); PLATELET COUNT AUTOMATED 119 10*3/uL (130-400); RED BLOOD COUNT 4.82 10*6/uL (4.50-5.90); RED CELL DISTRI WIDTH 14.4 % (0-14.5); WHITE BLOOD COUNT 15.9 10*3/uL (4.8-10.8)
--- NOTE | 2020-01-22 19:45 | NUR ---
MD GRAY AT BEDSIDE WITH THIS RN.TO REASSESS PT.PT ATTEMPTING TO SIT ON SIDE OF BED.DIAPHORETIC.BP 81/52.C/O GROIN PAIN.REPORTS FALL THIS EVENING AT HOME.REDNESS NOTED TO RIGHT KNEE.
--- NOTE | 2020-01-22 19:52 | NUR ---
500BOLUS NS INITIATED PER MD VERBAL ORDER.PT MEDICATED TYLENOL PER EMAR.
[2020-01-22 19:53] LABS: ACT PARTIAL THROMBO TIME 26.2 SECONDS (20.0-32.1)
[2020-01-22 20:01] LABS: ALBUMIN 3.5 gm/dl (3.1-4.5); ALKALINE PHOSPHATASE 110 U/L (45-117); BUN 36 mg/dl (7-24); CHLORIDE 110 mmol/L (98-107); CREATININE 2.47 mg/dL (0.70-1.30); POTASSIUM 5.4 mmol/L (3.5-5.1); SGOT/AST 17 IU/L (3-35); SGPT/ALT 27 U/L (12-78); SODIUM 142 mmol/L (136-145); TOTAL PROTEIN 7.7 gm/dL (6.4-8.2)
[2020-01-22 20:05] LABS: TROPONIN I < 0.015 ng/ml (<0.045)
[2020-01-22 20:08] LABS: TOTAL CELLS COUNTED 100 #CELLS
[2020-01-22 20:09] LABS: PLATELET SUFFICIENCY NORMAL (NORMAL)
[2020-01-22 21:20] LABS: BILIRUBIN NEGATIVE (NEGATIVE); BLOOD 3+ (NEGATIVE); CLARITY SL CLOUDY (CLEAR); COLOR YELLOW (YELLOW); GLUCOSE NEGATIVE (NEGATIVE); KETONE NEGATIVE (NEGATIVE); LEUKO ESTERASE TRACE (NEGATIVE); NITRITE NEGATIVE (NEGATIVE); SPECIFIC GRAVITY 1.015 (1.005-1.030); UROBILINOGEN 0.2 E.U./dl (0.2-1.0)
[2020-01-22 21:21] LABS: BACTERIA 1+; WBC 16-20 wbc/hpf (0-5)
--- NOTE | 2020-01-23 00:17 | NUR ---
INFUSION ROVEPHIN COMPLETED.INFUSION ZITHROMAX INITIATED.
[2020-01-23 00:50] VITALS: BP 127/56
--- NOTE | 2020-01-23 00:50 | NUR ---
A 69, admitted to , under the services of MATT Diaz DO with a diagnosis of UTI; PNEUMONITIS; SEVERE SEPSIS. Chief complaint is COUGH FOR 1 WEEK; PRODUCTIVE FOR GREEN SPUTUM. Patient arrived via stretcher from ER. Monitor applied. Initial assessment completed. Vital signs taken and recorded. MATT DIAZ DO notified of admission to the unit. Orders received. See assessment for past medical history, medications and allergies. Patient and/or family oriented to unit. [facility]. Clothing/patient valuable form completed. HARPREET QUESADA
--- NOTE | 2020-01-23 01:33 | NUR ---
CALLED DR. SUH PERTAINING TO PT'S ELEVATED TROPONIN & LACTIC ACID. NO NEW ORDERS RECEIVED.
[2020-01-23] MEDS ORDERED: BYETTA5 MCG/0.02 SC (01:57)
--- NOTE | 2020-01-23 02:18 | NUR ---
MEDICATED WITH TYLENOL FOR ELEVATED TEMPERATURE.
--- NOTE | 2020-01-23 06:27 | NUR ---
CALLED DR. SUH PERTAINING TO PT'S MED REC BEING UPDATED & K+ LEVEL & AMMONIA LEVEL. NO NEW ORDERS RECEIVED.
--- NOTE | 2020-01-23 06:45 | NUR ---
CONSULTED DR. PROCTOR.
[2020-01-23 08:00] VITALS: BP 130/50
--- NOTE | 2020-01-23 09:00 | NUR ---
Mechanical Engineering Officer in to talk to patient. Patient states lives at home with his . There are 0 steps in the home. There is a wheelchair ramp. Physician: resident clinic Pharmacy: [facility] Home health services: none Patient's level of ADLs: MINIMAL ASSIST Patient has working utilities: yes DME: walker, cane, wheelchair, BSC, O2 @ 2.5l NC, portable O2 tanks, nebulizer, O2 supplier [facility] Follow-up physician's appointment after d/c: will be made by the hospitalist nurse director upon discharge Does patient want to access PORTAL?: no Discharge plan discussed with patient. He lives at home with his . He needs minimal assistance with his ADLs and ambulates with either a walker or a cane or gets around in a wheelchair. Discussed short term SNF and home health care services and he denies a need for either. When medically stable he will be discharged to home. He states his daughter will provide transportation on discharge. TIMOTHY KUNZ
--- NOTE | 2020-01-23 09:22 | NUR ---
PHYSICAL THERAPY Screen received pt admitted from home with dizziness,SOB, and fall. Pt may benefit from PT eval for assessment if has decline in functional status thank you [facility]
[2020-01-23 09:58] LABS: BASO % 0.2 % (0.0-1.0); EOS % 0.1 % (1.0-4.0); HEMATOCRIT 46.8 % (42.0-52.0); HEMOGLOBIN 14.6 g/dl (14.0-18.0); LYMPH # 0.6 10*3/uL (1.3-4.4); LYMPH % 4.7 % (27.0-41.0); MEAN CELL VOLUME 97.1 fl (80.0-94.0); MEAN CORPUSCULAR HGB 30.3 pg (27.0-31.0); MEAN CORPUSCULAR HGB CONC 31.2 g/dl (33.0-37.0); MONO # 1.2 10*3/uL (0.1-1.0); MONO % 9.2 % (3.0-9.0); NEUT # 10.8 10*3/uL (2.3-7.9); NEUT % 85.4 % (47.0-73.0); PLATELET COUNT AUTOMATED 113 10*3/uL (130-400); RED BLOOD COUNT 4.82 10*6/uL (4.50-5.90); RED CELL DISTRI WIDTH 14.6 % (0-14.5); WHITE BLOOD COUNT 12.7 10*3/uL (4.8-10.8)
--- NOTE | 2020-01-23 10:28 | NUR ---
CONSULT CALLED TO DR. POST'S OFFICE.
[2020-01-23 10:32] LABS: POTASSIUM 4.9 mmol/L (3.5-5.1)
[2020-01-23 10:35] LABS: ACT PARTIAL THROMBO TIME 28.7 SECONDS (20.0-32.1)
[2020-01-23 10:49] LABS: ALBUMIN 3.2 gm/dl (3.1-4.5); CREATININE 2.71 mg/dL (0.70-1.30); FREE T4 0.87 ng/dl (0.76-1.46); PHOSPHOROUS 2.3 mg/dL (2.5-4.9); THYROID STIM HORMONE (HS) 2.77 uIU/ml (0.358-4.75); TOTAL PROTEIN 7.4 gm/dL (6.4-8.2)
[2020-01-23 10:53] LABS: VITAMIN D, 25-HYDROXY 15.6 ng/mL (30-100)
[2020-01-23 12:00] VITALS: BP 128/47
--- NOTE | 2020-01-23 12:00 | NUR ---
Occupational therapy and nursing screen received. Will follow up with patient for completion of OT eval. Thank you. Tiffany Bowden, OTR/L
--- NOTE | 2020-01-23 15:06 | NUR ---
DR. VELAZQUEZ'S OFFICE NOTIFIED OF CONSULT.
[2020-01-23 16:00] VITALS: BP 106/61
[2020-01-23 20:00] VITALS: BP 139/75
[2020-01-24] VITALS: BP 135/72
--- NOTE | 2020-01-24 02:32 | NUR ---
24 HR chart check completed.
[2020-01-24 06:24] LABS: HEMATOCRIT 44.2 % (42.0-52.0); HEMOGLOBIN 13.7 g/dl (14.0-18.0); MEAN CELL VOLUME 97.8 fl (80.0-94.0); MEAN CORPUSCULAR HGB 30.3 pg (27.0-31.0); MEAN PLATELET VOLUME 12.4 fl (9.6-12.3); PLATELET COUNT AUTOMATED 110 10*3/uL (130-400); RED BLOOD COUNT 4.52 10*6/uL (4.50-5.90); RED CELL DISTRI WIDTH 14.6 % (0-14.5); WHITE BLOOD COUNT 11.8 10*3/uL (4.8-10.8)
[2020-01-24 06:35] LABS: CREATININE 2.64 mg/dL (0.70-1.30); PHOSPHOROUS 3.8 mg/dL (2.5-4.9); POTASSIUM 5.3 mmol/L (3.5-5.1)
[2020-01-24 06:58] LABS: TOTAL CELLS COUNTED 100 #CELLS
[2020-01-24 06:59] LABS: PLATELET SUFFICIENCY LOW (NORMAL)
[2020-01-24 08:00] VITALS: BP 116/54
--- NOTE | 2020-01-24 08:50 | NUR ---
Occupational therapy orders received and OT evaluation completed in full on floor five. Patient precautions include fall risk, ww use, 2LO2, and weakness. Per OT eval, OT recommends SNF. If refused, home with HH SN, OT, and PT. [place] complexity [place], [id number]. Thank you for the referral. Tiffany Bowden, OTR/L
--- NOTE | 2020-01-24 09:00 | NUR ---
Physical Therapy evaluation completed on 01/24 with full evaluation to follow. Recommend physical therapy per plan of care and SNF upon discharge Thank you for this referral. [facility]
[2020-01-24 12:00] VITALS: BP 122/88
--- NOTE | 2020-01-24 13:22 | NUR ---
Dr. Vogt aware of consult.
[2020-01-24 16:00] VITALS: BP 104/49
[2020-01-24 20:00] VITALS: BP 114/74
[2020-01-24 21:29] LABS: BACTERIA 1+; RBC 16-20 rbc/hpf (0-2); WBC 0-2 wbc/hpf (0-5)
[2020-01-25] VITALS: BP 117/55
[2020-01-25 06:34] LABS: BASO % 0.1 % (0.0-1.0); HEMATOCRIT 40.1 % (42.0-52.0); HEMOGLOBIN 12.7 g/dl (14.0-18.0); LYMPH # 0.7 10*3/uL (1.3-4.4); LYMPH % 5.9 % (27.0-41.0); MEAN CELL VOLUME 96.6 fl (80.0-94.0); MEAN CORPUSCULAR HGB 30.6 pg (27.0-31.0); MEAN CORPUSCULAR HGB CONC 31.7 g/dl (33.0-37.0); MEAN PLATELET VOLUME 12.5 fl (9.6-12.3); MONO # 0.9 10*3/uL (0.1-1.0); MONO % 7.5 % (3.0-9.0); NEUT # 10.1 10*3/uL (2.3-7.9); NEUT % 85.6 % (47.0-73.0); PLATELET COUNT AUTOMATED 114 10*3/uL (130-400); RED BLOOD COUNT 4.15 10*6/uL (4.50-5.90); RED CELL DISTRI WIDTH 14.6 % (0-14.5); WHITE BLOOD COUNT 11.8 10*3/uL (4.8-10.8)
[2020-01-25 07:06] LABS: ALBUMIN 2.8 gm/dl (3.1-4.5); CREATININE 2.62 mg/dL (0.70-1.30); PHOSPHOROUS 3.6 mg/dL (2.5-4.9)
[2020-01-25 07:08] LABS: TOTAL PROTEIN 6.9 gm/dL (6.4-8.2)
[2020-01-25 07:10] LABS: POTASSIUM 4.3 mmol/L (3.5-5.1)
[2020-01-25 08:00] VITALS: BP 122/78
--- NOTE | 2020-01-25 09:00 | NUR ---
Pharmacy Consultant in to see patient. Discussed home health care services and he is agreeable. When provided with a list of agencies he chose [facility]. When medically stable he will be discharged to home with home health care services.
--- NOTE | 2020-01-25 09:40 | NUR ---
OT NOTE Pt was seen this A.M. 1:1 for 15 minute OT session. Upon arrival pt was supine in bed. Pt identified by name and and had no complaints at this time. Pt presented to therapy with continuous 2L-O2 via NC which he remained on throughout the entire session. Pt transferred supine to sit EOB with SBA. Sit to stand completed from bed level with Estela and use of w/w for UE support. Functional mobility was then completed to the bathroom with CGA and use of w/w, throughout pt had two LOB that occured during tight turns that required Estela to correct. Pt transferred on to standard commode with CGA and off with Estela due to low surface. Pt then stood sink side while washing his hands with CGA, while standing without UE support pt had LOB backwards that required Estela to correct. Functional mobility was then completed back to the recliner with CGA and use of w/w. There pt was left sitting upright in the recliner with call light in hand, tray table in place, and body alarm activated for safety. Continue with rec D/C plan to SNF. GIANFRANCO Singh
--- NOTE | 2020-01-25 11:13 | NUR ---
PHYSICAL THERAPY TREATMENT TIME: 09:25 AM - 09: 40 AM 15 MINUTES TOTAL Patient presented to therapy in supine in bed with head of bed elevated and 2 liters of spO2 VIA NASAL CANULA. Patient gives informed consent for treatment. Patient was identified by name and on wrist band. Patient transferred supine to sitting on EOB with SBA. Patient sat on EOB with SBA. Patient sit to stand from EOB with MIN A X 1. Patient ambulated with Wh Walker 50' x 1 and CGA with 2 liters of spO2 and ONE LOB that the patient corrected himself. Patient O2 SAT was recorded as 90% and pulse at 103 post ambulating. Patient required verbal cues for upright posture, pushing down on Walker with hands and keeping knees locked into extension when ambulating. Patient sit<>stand out of low chair with MIN A X 1 and verbal cues for pushing off armrests of chair with hands. Patient was left in bedside chair with call light within reach, chair alarm tested and attached to patient and LEs in low position. Patient was 1:1 with this SPECTROGRAPHER for 15 minutes total. YOUSUF SAEZ SPECTROGRAPHER
[2020-01-25 12:00] VITALS: BP 125/86
[2020-01-25 16:00] VITALS: BP 124/63
--- NOTE | 2020-01-25 17:12 | NUR ---
PEARCE CATHETER INSERTED W/O DIFFICULTY. 900CC URINE OBTAINED RIGHT AWAY. BLADDER SCAN REVEALED 727.
--- NOTE | 2020-01-25 17:13 | NUR ---
MEDICATED WITH PRN NORCO PER ORDER AND REQUEST.
[2020-01-25 20:00] VITALS: BP 122/69
[2020-01-26] VITALS: BP 122/65
--- NOTE | 2020-01-26 02:11 | NUR ---
24 HR chart check completed.
[2020-01-26 06:57] LABS: HEMATOCRIT 40.9 % (42.0-52.0); HEMOGLOBIN 12.7 g/dl (14.0-18.0); LYMPH # 0.7 10*3/uL (1.3-4.4); LYMPH % 7.9 % (27.0-41.0); MEAN CELL VOLUME 96.2 fl (80.0-94.0); MEAN CORPUSCULAR HGB 29.9 pg (27.0-31.0); MEAN CORPUSCULAR HGB CONC 31.1 g/dl (33.0-37.0); MEAN PLATELET VOLUME 12.5 fl (9.6-12.3); MONO # 0.6 10*3/uL (0.1-1.0); MONO % 7.1 % (3.0-9.0); NEUT # 7.6 10*3/uL (2.3-7.9); NEUT % 83.8 % (47.0-73.0); PLATELET COUNT AUTOMATED 126 10*3/uL (130-400); RED BLOOD COUNT 4.25 10*6/uL (4.50-5.90); RED CELL DISTRI WIDTH 14.6 % (0-14.5); WHITE BLOOD COUNT 9.1 10*3/uL (4.8-10.8)
[2020-01-26 07:26] LABS: ALBUMIN 2.8 gm/dl (3.1-4.5); CREATININE 2.14 mg/dL (0.70-1.30); PHOSPHOROUS 3.2 mg/dL (2.5-4.9); POTASSIUM 4.7 mmol/L (3.5-5.1); TOTAL PROTEIN 6.9 gm/dL (6.4-8.2)
[2020-01-26 08:00] VITALS: BP 128/61
--- NOTE | 2020-01-26 09:00 | NUR ---
Primary Operator in to see patient. No new needs or request at this time. When medically stable he will be discharged to home with [facility] services.
[2020-01-26 10:05] LABS: CREATININE,URINE 101.3 mg/dL (Not Estab.)
--- NOTE | 2020-01-26 10:50 | NUR ---
OT NOTE Pt was seen this A.M. 1:1 for 18 minute OT session. Upon arrival pt was supine in bed. Pt identified by name and and had no complaints at this time. Pt presented to therapy with continuous 2L-O2 via NC which he remained on throughout the entire session. Pt transferred supine to sit EOB with Estela. Sit to stand completed from bed level with Estela and use of w/w followed by functional mobility to the bedside commode with CGA and use of w/w. There he transferred on/off with Estela due to low surface. Challenged pt's static standing tolerance needed for increased I in self care tasks and functional transfers. Pt was able to tolerate aprox 4 minutes before sitting due to fatigue. Pt was left sitting upright in the recliner with call light in hand, tray table in place, and body alarm activated for safety. Continue with rec D/C plan to SNF. ABIGAIL Singh/Giovanni
[2020-01-26 12:00] VITALS: BP 130/65
--- NOTE | 2020-01-26 12:05 | NUR ---
Spoke to Marleny at [place]. Berenice montalvo.
--- NOTE | 2020-01-26 12:16 | NUR ---
PHYSICAL THERAPY Patient seen this am 1;1 for therapy visit and was resting supine in bed upon therapist arrival. Patient identified by name / and presented with continuos O2-2L via NC and was joined by his . Patient transfers supine to sit EOB with MIN A and needed a minute or so to collect himself. Patient performed sit to stand transfer, CGA and ambulated 40'x 1, use of wh walker, CGA, demonstrating very slow, cautious gait pattern, decreased stride. Patient returned to bedside chair with increased fatigue and was educated on improved, safe transfer technique from low chair surface. Patient completed several sit to stand transfers, Min A, improving to CGA with use of wh walker standing support. Patient remained in bedside chair with call light, tray table, telephone and body alarm for safety. Will continue per POC as tolerated, total treatment time 16 minutes. Cali Mayfield, CLINICAL PRACTICE CONSULTANT
--- NOTE | 2020-01-26 14:00 | NUR ---
PHYSICAL THERAPY CO-SIGN I approve of the Physical Therapy notes written above. Cady [address] PT
--- NOTE | 2020-01-26 15:08 | NUR ---
OCCUPATIONAL THERAPY CO-SIGN I approve of the Occupational Therapy notes written above. RAMSES FRANKLIN OTR/Giovanni
[2020-01-26 16:00] VITALS: BP 141/65
[2020-01-26 20:00] VITALS: BP 134/61
--- NOTE | 2020-01-26 20:00 | NUR ---
PATIENT MEDICATED WITH NORCO FOR C/O BLADDER PAIN WITH COUGH. RATED PAIN A 6-7/10 WITH 10 BEING THE WORST. SEE EMAR. REINFORCED USE OF CALL LIGHT.
--- NOTE | 2020-01-26 22:00 | NUR ---
PATIENT RESTING QUIETLY. MEDICATION GIVEN EARLIER EFFECTIVE PER PATIENT.
[2020-01-27] VITALS: BP 129/77
--- NOTE | 2020-01-27 | NUR ---
Patient resting quietly with no c/o discomfort. Respirations easy and regular. Vital signs stable. No overt distress. LAURA MAYO
--- NOTE | 2020-01-27 02:29 | NUR ---
24 HR chart check completed.
--- NOTE | 2020-01-27 04:00 | NUR ---
Patient resting quietly with no c/o discomfort. Respirations easy and regular. Vital signs stable. No overt distress. LAURA MAYO
--- NOTE | 2020-01-27 10:00 | NUR ---
haris effective. PATIENT RESTING EASY
[2020-01-27 10:08] VITALS: BP 130/78
[2020-01-27 10:35] LABS: CREATININE 1.86 mg/dL (0.70-1.30); POTASSIUM 4.7 mmol/L (3.5-5.1)
--- NOTE | 2020-01-27 11:18 | NUR ---
PEARCE REMOVED ORDERED. PATIENT TOLERATED WELL. EDUCATED PATIENT TO NOTIFY NURSE AFTER FIRST VOID. VOICED UNDERSTANDING. DENIES DISCOMFORT
[2020-01-27 12:00] VITALS: BP 124/61
--- NOTE | 2020-01-27 13:50 | NUR ---
URINATING ON WON AFTER PEARCE REMOVAL FOR 120CC. BLADDER SCAN POST VOID REVEALED 1254 CC RETAINED. NOTIFIED.
--- NOTE | 2020-01-27 15:36 | NUR ---
POST VOID BLADDER SCANNED FOR 365CC RETAINED. HAD 225 CC OUT ON OWN IN URINAL. NOTIFIED.
[2020-01-27 16:00] VITALS: BP 148/74
--- NOTE | 2020-01-27 17:43 | NUR ---
POST VOID BLADDER SCANNED FOR 365. PT PUT OUT ON OWN IN URINAL 380. WILL MONITOR.
[2020-01-27 20:00] VITALS: BP 160/74
--- NOTE | 2020-01-27 20:00 | NUR ---
Patient resting quietly with no c/o discomfort. Respirations easy and regular. Vital signs stable. No overt distress. LAURA MAYO
[2020-01-28] VITALS: BP 144/67
--- NOTE | 2020-01-28 | NUR ---
Patient resting quietly with no c/o discomfort. Respirations easy and regular. Vital signs stable. No overt distress. LAURA MAYO
--- NOTE | 2020-01-28 03:30 | NUR ---
Patient resting quietly with no c/o discomfort. Respirations easy and regular. Vital signs stable. No overt distress. LAURA MAYO
[2020-01-28 06:57] LABS: CREATININE 1.76 mg/dL (0.70-1.30); POTASSIUM 5.2 mmol/L (3.5-5.1)
[2020-01-28 08:00] VITALS: BP 135/79
--- NOTE | 2020-01-28 11:01 | NUR ---
BLADDER SCANNED FOR 816CC. INSTRUCTED PT TO TRY TO URINATE AND LET NURSE KNOW WHEN HE IS DONE. NOTIFIED.
[2020-01-28 12:00] VITALS: BP 108/59
--- NOTE | 2020-01-28 12:29 | NUR ---
BLADDER SCANNED POST VOID FOR 108CC. STATES HE DOES BETTER URINATING ON OWN WHEN SITTING ON TOILET.
--- NOTE | 2020-01-28 15:35 | NUR ---
VOIDED 500CCS IN TOILET. BLADDER SCAN 422 CCS. PATIENT STATES FEELING URGE TO VOID. NURSE STATED TO VOID AND WILL SCAN POST VOID. PATIENT DOES NOT LIKE CATHETERIZATION.
[2020-01-28 16:00] VITALS: BP 123/62
--- NOTE | 2020-01-28 17:48 | NUR ---
PATIENT VOIDED X 3 TIMES SINCE LAST SCAN. CURRENT SCAN LESS 100CC POSTVOID. DENIES DISCOMFORT AT THIS TIME
[2020-01-28 20:00] VITALS: BP 136/57
--- NOTE | 2020-01-28 20:00 | NUR ---
PATIENT A&Ox3. PATIENT HAS NO COMPLAINTS AT THIS TIME. STATES THAT HE WAS RECENTLY UP AND URINATED 400CC IN THE HAT IN THE TOILET. SEE SHIFT ASSESSMENT.
--- NOTE | 2020-01-28 20:13 | NUR ---
PATIENT REQUESTING PAIN MEDICATION FOR GROIN PAIN RATED 6/10 ON 0/10 SCALE. NORCO ADMINISTERED PRESCRIBED. WILL MONITOR FOR EFFECTIVENESS.
--- NOTE | 2020-01-28 21:13 | NUR ---
PATIENT STATES THAT NORCO WAS EFFECTIVE FOR PAIN. WILL MONITOR.
[2020-01-29] VITALS: BP 129/64
--- NOTE | 2020-01-29 | NUR ---
PATIENT RESTING WITH EYES CLOSED. RESPIRATIONS EASY AND UNLABORED. CALL LIGHT IN REACH. WILL MONITOR.
--- NOTE | 2020-01-29 00:46 | NUR ---
24 HR chart check completed.
--- NOTE | 2020-01-29 02:00 | NUR ---
PATIENT RESTING WITH EYES CLOSED. RESPIRATIONS EASY AND UNLABORED. CALL LIGHT IN REACH. WILL MONITOR.
[2020-01-29 08:00] VITALS: BP 143/61
--- NOTE | 2020-01-29 09:15 | NUR ---
PHYSICAL THERAPY Patient seen this am 1;1 for therapy visit and was supine in bed upon therapist arrival. Patient identified by name / and reports no new c/o's at this time. OT patient observation assistant was present for observation only this session as patient presents with continuous O2-2L via NC. Patient transfers supine to sit EOB CGA, then sit to stand CGA x 1 and ambulates with use of walker, CGA, 15'x 1 to bathroom. Patient ambulated additional 30'x 1, walker, CGA, demonstrating slow loree, decreased stride and needed v/c to improve extended O2 hose safety navigation ad maria isabel in room to avoid stepping on, getting tangle up in or tripping over hose. Patient returned to bedside chair and remained with mild fatigue, call light, tray table, telephone and body alarm for safety. Will continue per POC as toelrated, total treatment time 17 minutes. Cali Mayfield, [employer]
--- NOTE | 2020-01-29 09:29 | NUR ---
OT NOTE PATIENT SEEN TREATED OT THIS DATE 12 MINUTES. PATIENT INDENTIFIED BY NAME AND DATE OF . COMPLETED SUPINE TO SIT EOB CGA. COMPLETED UB DRESSING DOFFING/DONNING GOWN MIN A MANAGE TIES. COMPLETED SIT TO STAND FROM BED CGA. COMPLETED FUNCTIONAL AMBULATON TO BATHROOM USE FWW SUPPORT CGA NO LOB. COMPLETED GROOMING STANDING AT SINK CGA TO COMB HAIR AND WASH FACE AFTER JOHNSON. PATIENT DEMONSTRATED FUNCTIONAL STAND TOLERANCE CGA APPROX 4 1/2 MINUTES THROUGHOUT SESSION THIS DATE USE FWW SUPPORT AND USE 2 L 02 NC THROUGHOUT SESSION. PATIENT DEMONSTRATED GOOD CARRYOVER EXTENDED 02 TUBING SAFETY WITH TURNS USE FWW AMBULATING TO RECLINER CGA. PATIENT SEATED IN RECLINER END OF SESSION THIS DATE. CALL LIGHT IN HAND AND CHAIR ALARM IN TACT.NO FURTHER NEEDS VERBALIZED. CONTINUE TOWARDS PLAN OF CARE. PATEL HAYES/Giovanni
[2020-01-29] MEDS ORDERED: TAMSULOSIN HCL0.4 MG PO (09:50)
[2020-01-29] MEDS ORDERED: FINASTERIDE5 M1 PO (09:50)
[2020-01-29] MEDS ORDERED: PREDNISONE10 MG PO (09:50)
[2020-01-29] MEDS ORDERED: VITAMIN D32000 UNI1 PO (09:50)
--- NOTE | 2020-01-29 11:21 | NUR ---
Discharge instructions reviewed with patient/family. Patient receptive and verbalizes understanding. Follow-up care arranged. Written instructions given to patient/family. ARASELI VAZQUEZ
--- NOTE | 2020-01-29 11:43 | NUR ---
Faxed discharge clinical to [facility]
[2020-01-29 18:04] LABS: ADENOVIRUS Negative (Negative); INFLUENZA A Negative (Negative); INFLUENZA B Negative (Negative); METAPNEUMOVIRUS Negative (Negative); PARAINFLUENZA 1 Negative (Negative); PARAINFLUENZA 2 Negative (Negative); PARAINFLUENZA 3 Negative (Negative); RHINOVIRUS Negative (Negative); RSV A Negative (Negative); RSV B Negative (Negative)
--- NOTE | 2020-01-30 07:28 | NUR ---
PHYSICAL THERAPY CO-SIGN I approve of the Physical Therapy notes written above. Cady [address] PT
--- NOTE | 2020-01-30 07:44 | NUR ---
OCCUPATIONAL THERAPY CO-SIGN I approve of the Occupational Therapy notes written above. ELIESER LOJA, OTR/L
== END 2020-01-29 11:21 | disposition home health service (06) | DRG 871 ==
LOC: ED 18:56 → 5E 23:15 → EDHOLD 23:15 → 5E 23:38
PROVIDERS: Emergency Medicine; Family Medicine; Internal Medicine; Internal Medicine Critical Care Medicine; Internal Medicine Nephrology; Registered Nurse; ADMIT Internal Medicine
DX: A41.9 Sepsis, unspecified organism (principal); N17.0 Acute kidney failure with tubular necrosis; J15.6 Pneumonia due to other Gram-negative bacteria; I50.43 Acute on chronic combined systolic (congestive) and diastolic (congestive) heart failure; E44.1 Mild protein-calorie malnutrition; E72.20 Disorder of urea cycle metabolism, unspecified; I13.0 Hypertensive heart and chronic kidney disease with heart failure and stage 1 through stage 4 chronic kidney disease, or unspecified chronic kidney disease; J44.0 Chronic obstructive pulmonary disease with (acute) lower respiratory infection; I48.11 Longstanding persistent atrial fibrillation; M62.82 Rhabdomyolysis; N39.0 Urinary tract infection, site not specified; J44.1 Chronic obstructive pulmonary disease with (acute) exacerbation; N13.8 Other obstructive and reflux uropathy; I42.9 Cardiomyopathy, unspecified; I24.8 Other forms of acute ischemic heart disease; R65.20 Severe sepsis without septic shock; D69.6 Thrombocytopenia, unspecified; E87.5 Hyperkalemia; N18.3 Chronic kidney disease, stage 3 (moderate); E11.22 Type 2 diabetes mellitus with diabetic chronic kidney disease; G89.29 Other chronic pain; M54.9 Dorsalgia, unspecified; E66.01 Morbid (severe) obesity due to excess calories; R26.2 Difficulty in walking, not elsewhere classified; N20.0 Calculus of kidney; R33.9 Retention of urine, unspecified; I95.89 Other hypotension; G47.33 Obstructive sleep apnea (adult) (pediatric); R94.5 Abnormal results of liver function studies; E87.6 Hypokalemia; E55.9 Vitamin D deficiency, unspecified; N40.1 Benign prostatic hyperplasia with lower urinary tract symptoms; K59.00 Constipation, unspecified; J45.50 Severe persistent asthma, uncomplicated; K21.9 Gastro-esophageal reflux disease without esophagitis; E86.1 Hypovolemia; E87.8 Other disorders of electrolyte and fluid balance, not elsewhere classified; I25.10 Atherosclerotic heart disease of native coronary artery without angina pectoris; R09.02 Hypoxemia; E11.65 Type 2 diabetes mellitus with hyperglycemia; Z79.4 Long term (current) use of insulin; I25.2 Old myocardial infarction; Z88.8 Allergy status to other drugs, medicaments and biological substances; Z88.1 Allergy status to other antibiotic agents; Z87.442 Personal history of urinary calculi; Z87.01 Personal history of pneumonia (recurrent); Z87.891 Personal history of nicotine dependence; Z82.49 Family history of ischemic heart disease and other diseases of the circulatory system; Z83.3 Family history of diabetes mellitus; Z82.3 Family history of stroke; Z84.89 Family history of other specified conditions; Z79.82 Long term (current) use of aspirin; Z79.899 Other long term (current) drug therapy; Z80.1 Family history of malignant neoplasm of trachea, bronchus and lung; Z68.38 Body mass index [BMI] 38.0-38.9, adult

== ENCOUNTER → 2020-02-02 | Outpatient (CLI) | payer OTHER ==
[~2020-02-02] MED LIST changes: +BYETTA5 MCG/0.02 SC; +FINASTERIDE5 M1 PO; +TAMSULOSIN HCL0.4 MG PO; +VITAMIN D32000 UNI1 PO
== END | disposition home or self-care (01) ==
LOC: RESCLI 01:45
DX: I13.0 Hypertensive heart and chronic kidney disease with heart failure and stage 1 through stage 4 chronic kidney disease, or unspecified chronic kidney disease (principal); E11.22 Type 2 diabetes mellitus with diabetic chronic kidney disease; E11.65 Type 2 diabetes mellitus with hyperglycemia; J44.9 Chronic obstructive pulmonary disease, unspecified; K21.9 Gastro-esophageal reflux disease without esophagitis; I25.10 Atherosclerotic heart disease of native coronary artery without angina pectoris; E11.42 Type 2 diabetes mellitus with diabetic polyneuropathy; I48.0 Paroxysmal atrial fibrillation; N40.0 Benign prostatic hyperplasia without lower urinary tract symptoms; E55.9 Vitamin D deficiency, unspecified; K42.9 Umbilical hernia without obstruction or gangrene; N18.3 Chronic kidney disease, stage 3 (moderate); J30.9 Allergic rhinitis, unspecified; E66.01 Morbid (severe) obesity due to excess calories; Z79.899 Other long term (current) drug therapy; Z88.8 Allergy status to other drugs, medicaments and biological substances

== ENCOUNTER → 2020-05-28 | Outpatient (CLI) | payer OTHER | END | disposition home or self-care (01) | LOC: LAB 11:36 | DX: E11.65 Type 2 diabetes mellitus with hyperglycemia (principal) ==

== ENCOUNTER → 2020-05-30 | Outpatient (CLI) | payer OTHER ==
[2020-05-30 12:42] LABS: BASO % 0.6 % (0.0-1.0); EOS # 0.3 10*3/uL (0.0-0.4); EOS % 3.9 % (1.0-4.0); HEMATOCRIT 41.1 % (42.0-52.0); LYMPH # 1.4 10*3/uL (1.3-4.4); MEAN CELL VOLUME 97.9 fl (80.0-94.0); MEAN CORPUSCULAR HGB 29.8 pg (27.0-31.0); MEAN CORPUSCULAR HGB CONC 30.4 g/dl (33.0-37.0); MEAN PLATELET VOLUME 12.2 fl (9.6-12.3); MONO # 0.8 10*3/uL (0.1-1.0); MONO % 12.3 % (3.0-9.0); NEUT % 61.9 % (47.0-73.0); PLATELET COUNT AUTOMATED 126 10*3/uL (130-400); RED CELL DISTRI WIDTH 14.4 % (0-14.5); WHITE BLOOD COUNT 6.5 10*3/uL (4.8-10.8)
[2020-05-30 13:08] LABS: ALBUMIN 3.4 gm/dl (3.1-4.5); CREATININE 2.09 mg/dL (0.70-1.30); POTASSIUM 5.6 mmol/L (3.5-5.1); TOTAL PROTEIN 7.3 gm/dL (6.4-8.2); URIC ACID 10.4 mg/dL (3.5-7.2)
== END | disposition home or self-care (01) ==
LOC: RESCLI 00:51
PROVIDERS: Student in an Organized Health Care Education/Training Program
DX: L03.011 Cellulitis of right finger (principal); M25.741 Osteophyte, right hand; M19.041 Primary osteoarthritis, right hand; R60.0 Localized edema; E79.0 Hyperuricemia without signs of inflammatory arthritis and tophaceous disease; E11.65 Type 2 diabetes mellitus with hyperglycemia; J44.9 Chronic obstructive pulmonary disease, unspecified; I25.10 Atherosclerotic heart disease of native coronary artery without angina pectoris; E11.42 Type 2 diabetes mellitus with diabetic polyneuropathy; I48.0 Paroxysmal atrial fibrillation; N40.0 Benign prostatic hyperplasia without lower urinary tract symptoms; E55.9 Vitamin D deficiency, unspecified; I10 Essential (primary) hypertension; K21.9 Gastro-esophageal reflux disease without esophagitis; I25.2 Old myocardial infarction; Z12.5 Encounter for screening for malignant neoplasm of prostate; Z13.6 Encounter for screening for cardiovascular disorders; Z79.899 Other long term (current) drug therapy; Z79.82 Long term (current) use of aspirin; Z95.828 Presence of other vascular implants and grafts; Z98.890 Other specified postprocedural states; Z88.8 Allergy status to other drugs, medicaments and biological substances

== ENCOUNTER → 2020-06-04 | Outpatient (CLI) | payer OTHER | END | disposition home or self-care (01) | LOC: US 06:55 | DX: Z13.6 Encounter for screening for cardiovascular disorders (principal) ==

== ENCOUNTER → 2020-06-24 | Outpatient (CLI) | payer OTHER ==
[2020-06-24 10:55] LABS: CREATININE 2.05 mg/dL (0.70-1.30); POTASSIUM 5.4 mmol/L (3.5-5.1)
== END | disposition home or self-care (01) ==
LOC: LAB 03:18 → MRI 11:00 → LAB 11:00
PROVIDERS: Internal Medicine Nephrology
DX: L03.011 Cellulitis of right finger (principal); E87.5 Hyperkalemia

== ENCOUNTER → 2020-07-01 | Outpatient (CLI) | payer OTHER ==
[2020-07-01 15:30] LABS: POTASSIUM 5.1 mmol/L (3.5-5.1)
== END | disposition home or self-care (01) ==
LOC: RESCLI 00:49
PROVIDERS: Student in an Organized Health Care Education/Training Program
DX: L03.011 Cellulitis of right finger (principal); I13.0 Hypertensive heart and chronic kidney disease with heart failure and stage 1 through stage 4 chronic kidney disease, or unspecified chronic kidney disease; N18.3 Chronic kidney disease, stage 3 (moderate); I50.30 Unspecified diastolic (congestive) heart failure; E87.6 Hypokalemia; M79.604 Pain in right leg; E11.9 Type 2 diabetes mellitus without complications; J44.9 Chronic obstructive pulmonary disease, unspecified; I25.10 Atherosclerotic heart disease of native coronary artery without angina pectoris; I48.91 Unspecified atrial fibrillation; Z79.899 Other long term (current) drug therapy; Z79.82 Long term (current) use of aspirin; Z98.890 Other specified postprocedural states; Z95.828 Presence of other vascular implants and grafts; Z87.891 Personal history of nicotine dependence; Z88.8 Allergy status to other drugs, medicaments and biological substances

== ENCOUNTER → 2020-07-17 | Outpatient (CLI) | payer OTHER ==
[2020-07-17 14:56] LABS: CREATININE 2.44 mg/dL (0.70-1.30); POTASSIUM 4.5 mmol/L (3.5-5.1)
== END | disposition home or self-care (01) ==
LOC: LAB 05:17 → NM 05:17
PROVIDERS: Student in an Organized Health Care Education/Training Program
DX: L03.011 Cellulitis of right finger (principal); I50.30 Unspecified diastolic (congestive) heart failure

== ENCOUNTER → 2020-09-12 | Outpatient (CLI) | payer OTHER | END | disposition home or self-care (01) | LOC: LAB 09:18 | PROVIDERS: ATTEND Internal Medicine Nephrology | DX: E11.9 Type 2 diabetes mellitus without complications (principal) ==

== ENCOUNTER → 2020-09-13 | Outpatient (CLI) | payer OTHER | END | disposition home or self-care (01) | LOC: RESCLI 05:05 | PROVIDERS: ATTEND Family Medicine | DX: R21 Rash and other nonspecific skin eruption (principal); E11.65 Type 2 diabetes mellitus with hyperglycemia; J44.9 Chronic obstructive pulmonary disease, unspecified; I48.0 Paroxysmal atrial fibrillation; E78.5 Hyperlipidemia, unspecified; M10.9 Gout, unspecified; L03.011 Cellulitis of right finger; I10 Essential (primary) hypertension; I25.10 Atherosclerotic heart disease of native coronary artery without angina pectoris; E11.42 Type 2 diabetes mellitus with diabetic polyneuropathy; E55.9 Vitamin D deficiency, unspecified; K21.9 Gastro-esophageal reflux disease without esophagitis; N40.0 Benign prostatic hyperplasia without lower urinary tract symptoms; Z79.899 Other long term (current) drug therapy; Z79.82 Long term (current) use of aspirin; Z98.890 Other specified postprocedural states; Z87.891 Personal history of nicotine dependence; Z23 Encounter for immunization ==

== ENCOUNTER → 2020-12-25 | Outpatient (CLI) | payer OTHER ==
[~2020-12-25] MED LIST changes: +ALLOPURINOL100 MG PO; +DECADRON6 M1 PO; +ELIQUIS2.5 M1 PO; +LISINOPRIL20 MG PO; +PROTONIX IV40 MG IV; +ZETIA10 MG PO
== END | disposition home or self-care (01) ==
LOC: RESCLI 03:04
PROVIDERS: ATTEND Internal Medicine
DX: M10.9 Gout, unspecified (principal); J44.9 Chronic obstructive pulmonary disease, unspecified; E78.5 Hyperlipidemia, unspecified; N40.0 Benign prostatic hyperplasia without lower urinary tract symptoms; E11.42 Type 2 diabetes mellitus with diabetic polyneuropathy; I10 Essential (primary) hypertension; E55.9 Vitamin D deficiency, unspecified; I25.10 Atherosclerotic heart disease of native coronary artery without angina pectoris; E11.65 Type 2 diabetes mellitus with hyperglycemia; R21 Rash and other nonspecific skin eruption; K21.9 Gastro-esophageal reflux disease without esophagitis; I48.0 Paroxysmal atrial fibrillation; Z79.899 Other long term (current) drug therapy; Z79.84 Long term (current) use of oral hypoglycemic drugs; Z88.8 Allergy status to other drugs, medicaments and biological substances

== ENCOUNTER 2021-01-17 10:38 | Inpatient (IN) | payer OTHER ==
[~2021-01-17] VITALS: Ht 185.4 cm; Wt 141.5 kg
[~2021-01-17 10:38] MED LIST changes: -ALLOPURINOL100 MG PO; -DECADRON6 M1 PO; -ELIQUIS2.5 M1 PO; -LISINOPRIL20 MG PO; -PROTONIX IV40 MG IV; -ZETIA10 MG PO
[2021-01-17 10:45] VITALS: BP 123/50
[2021-01-17 11:11] VITALS: BP 130/55
[2021-01-17 11:39] LABS: BASO % 0.2 % (0.0-1.0); EOS # 0.1 10*3/uL (0.0-0.4); HEMATOCRIT 35.8 % (42.0-52.0); LYMPH # 1.2 10*3/uL (1.3-4.4); LYMPH % 19.4 % (27.0-41.0); MEAN CELL VOLUME 98.4 fl (80.0-94.0); MEAN CORPUSCULAR HGB 27.7 pg (27.0-31.0); MEAN CORPUSCULAR HGB CONC 28.2 g/dl (33.0-37.0); MEAN PLATELET VOLUME 11.6 fl (9.6-12.3); MONO # 0.7 10*3/uL (0.1-1.0); MONO % 11.4 % (3.0-9.0); NEUT # 4.3 10*3/uL (2.3-7.9); NEUT % 67.8 % (47.0-73.0); PLATELET COUNT AUTOMATED 109 10*3/uL (130-400); RED BLOOD COUNT 3.64 10*6/uL (4.50-5.90); RED CELL DISTRI WIDTH 15.7 % (0-14.5); WHITE BLOOD COUNT 6.3 10*3/uL (4.8-10.8)
[2021-01-17 11:45] VITALS: BP 132/60
[2021-01-17 12:02] LABS: ALBUMIN 2.9 gm/dl (3.1-4.5); CREATININE 2.49 mg/dL (0.70-1.30); TOTAL PROTEIN 6.6 gm/dL (6.4-8.2)
[2021-01-17 12:26] VITALS: BP 128/55
[2021-01-17 16:00] VITALS: BP 142/65
[2021-01-17 19:54] LABS: CREATININE 2.45 mg/dL (0.70-1.30); POTASSIUM 5.4 mmol/L (3.5-5.1)
[2021-01-17 20:00] VITALS: BP 126/73
[2021-01-17] MEDS ORDERED: ELIQUIS2.5 M1 PO (21:23)
[2021-01-17] MEDS ORDERED: ZETIA10 MG PO (21:32)
[2021-01-17] MEDS ORDERED: ALLOPURINOL100 MG PO (21:33)
[2021-01-17] MEDS ORDERED: LISINOPRIL20 MG PO (21:34)
[2021-01-17] MEDS ORDERED: PROTONIX IV40 MG IV (21:39)
[2021-01-17 23:34] LABS: BILIRUBIN Negative (Negative); BLOOD Trace-Lysed (Negative); CLARITY Clear (Clear); COLOR Yellow (Yellow); GLUCOSE 2+ (Negative); KETONE Negative (Negative); LEUKO ESTERASE Negative (Negative); NITRITE Negative (Negative); SPECIFIC GRAVITY 1.015 (1.001-1.030); UROBILINOGEN 0.2 E.U./dl (0.0-1.0)
[2021-01-18] VITALS: BP 139/55
[2021-01-18 00:03] LABS: BACTERIA TRACE; WBC 0-2 wbc/hpf (0-5)
[2021-01-18 07:51] LABS: CREATININE 2.31 mg/dL (0.70-1.30); POTASSIUM 5.7 mmol/L (3.5-5.1)
[2021-01-18 07:53] LABS: VITAMIN D, 25-HYDROXY 30.9 ng/mL (30-100)
[2021-01-18 08:00] VITALS: BP 129/68
[2021-01-18 08:29] LABS: HEMATOCRIT 35.9 % (42.0-52.0); LYMPH # 0.9 10*3/uL (1.3-4.4); LYMPH % 19.3 % (27.0-41.0); MEAN CELL VOLUME 98.4 fl (80.0-94.0); MEAN CORPUSCULAR HGB 27.9 pg (27.0-31.0); MEAN CORPUSCULAR HGB CONC 28.4 g/dl (33.0-37.0); MEAN PLATELET VOLUME 11.8 fl (9.6-12.3); MONO # 0.4 10*3/uL (0.1-1.0); MONO % 8.8 % (3.0-9.0); NEUT # 3.3 10*3/uL (2.3-7.9); NEUT % 71.7 % (47.0-73.0); PLATELET COUNT AUTOMATED 110 10*3/uL (130-400); RED BLOOD COUNT 3.65 10*6/uL (4.50-5.90); RED CELL DISTRI WIDTH 15.7 % (0-14.5); WHITE BLOOD COUNT 4.6 10*3/uL (4.8-10.8)
[2021-01-18 12:00] VITALS: BP 134/60
[2021-01-18 16:00] VITALS: BP 124/62
[2021-01-18 16:29] LABS: CREATININE 2.52 mg/dL (0.70-1.30); POTASSIUM 5.3 mmol/L (3.5-5.1)
[2021-01-18 20:00] VITALS: BP 116/54
[2021-01-19] VITALS: BP 107/61
[2021-01-19 06:40] LABS: ALBUMIN 2.9 gm/dl (3.1-4.5); CREATININE 2.35 mg/dL (0.70-1.30); POTASSIUM 5.1 mmol/L (3.5-5.1); TOTAL PROTEIN 6.7 gm/dL (6.4-8.2)
[2021-01-19 06:55] LABS: HEMATOCRIT 31.9 % (42.0-52.0); LYMPH # 0.5 10*3/uL (1.3-4.4); LYMPH % 10.6 % (27.0-41.0); MEAN CELL VOLUME 95.8 fl (80.0-94.0); MEAN CORPUSCULAR HGB 27.6 pg (27.0-31.0); MEAN CORPUSCULAR HGB CONC 28.8 g/dl (33.0-37.0); MEAN PLATELET VOLUME 12.2 fl (9.6-12.3); MONO # 0.4 10*3/uL (0.1-1.0); MONO % 8.1 % (3.0-9.0); NEUT # 3.8 10*3/uL (2.3-7.9); NEUT % 80.9 % (47.0-73.0); PLATELET COUNT AUTOMATED 101 10*3/uL (130-400); RED BLOOD COUNT 3.33 10*6/uL (4.50-5.90); RED CELL DISTRI WIDTH 15.4 % (0-14.5); WHITE BLOOD COUNT 4.7 10*3/uL (4.8-10.8)
[2021-01-19 08:00] VITALS: BP 119/64
[2021-01-19 08:07] LABS: CREATININE,URINE 33.7 mg/dL (Not Estab.)
[2021-01-19 12:00] VITALS: BP 121/63
[2021-01-19 16:00] VITALS: BP 140/60
[2021-01-19 20:00] VITALS: BP 142/64
[2021-01-20] VITALS: BP 128/70
[2021-01-20 06:41] LABS: ALBUMIN 2.7 gm/dl (3.1-4.5); ALKALINE PHOSPHATASE 101 U/L (45-117); BUN 59 mg/dl (7-24); CHLORIDE 110 mmol/L (98-107); CREATININE 2.17 mg/dL (0.70-1.30); LDH 228 U/L (87-241); POTASSIUM 4.9 mmol/L (3.5-5.1); SGOT/AST 46 IU/L (3-35); SGPT/ALT 117 U/L (12-78); SODIUM 143 mmol/L (136-145); TOTAL PROTEIN 6.6 gm/dL (6.4-8.2)
[2021-01-20 06:43] LABS: HEMATOCRIT 34.9 % (42.0-52.0); LYMPH # 0.5 10*3/uL (1.3-4.4); LYMPH % 8.5 % (27.0-41.0); MEAN CELL VOLUME 97.5 fl (80.0-94.0); MEAN CORPUSCULAR HGB 27.7 pg (27.0-31.0); MEAN CORPUSCULAR HGB CONC 28.4 g/dl (33.0-37.0); MEAN PLATELET VOLUME 12.4 fl (9.6-12.3); MONO # 0.6 10*3/uL (0.1-1.0); MONO % 9.7 % (3.0-9.0); NEUT % 81.3 % (47.0-73.0); PLATELET COUNT AUTOMATED 115 10*3/uL (130-400); RED BLOOD COUNT 3.58 10*6/uL (4.50-5.90); RED CELL DISTRI WIDTH 15.5 % (0-14.5); WHITE BLOOD COUNT 6.1 10*3/uL (4.8-10.8)
[2021-01-20 08:00] VITALS: BP 135/68
[2021-01-20 12:00] VITALS: BP 119/69
[2021-01-20 16:00] VITALS: BP 116/69
[2021-01-20 20:00] VITALS: BP 131/76
[2021-01-21] VITALS: BP 107/75
[2021-01-21 06:46] LABS: BASO % 0.2 % (0.0-1.0); HEMATOCRIT 36.4 % (42.0-52.0); LYMPH # 0.6 10*3/uL (1.3-4.4); LYMPH % 9.5 % (27.0-41.0); MEAN CORPUSCULAR HGB 27.7 pg (27.0-31.0); MEAN CORPUSCULAR HGB CONC 29.1 g/dl (33.0-37.0); MEAN PLATELET VOLUME 12.4 fl (9.6-12.3); MONO # 0.8 10*3/uL (0.1-1.0); MONO % 11.9 % (3.0-9.0); NEUT # 4.9 10*3/uL (2.3-7.9); NEUT % 77.9 % (47.0-73.0); PLATELET COUNT AUTOMATED 125 10*3/uL (130-400); RED BLOOD COUNT 3.83 10*6/uL (4.50-5.90); RED CELL DISTRI WIDTH 15.5 % (0-14.5); WHITE BLOOD COUNT 6.3 10*3/uL (4.8-10.8)
[2021-01-21 06:57] LABS: CREATININE 1.93 mg/dL (0.70-1.30)
[2021-01-21 08:00] VITALS: BP 113/54
[2021-01-21 12:00] VITALS: BP 139/67
[2021-01-21] MEDS ORDERED: DOXYCYCLINE100 M3 PO ×2 (13:41)
[2021-01-21] MEDS ORDERED: DECADRON6 M1 PO ×2 (13:41)
== END 2021-01-21 17:43 | disposition home or self-care (01) | DRG 177 ==
LOC: ED 10:38 → EDHOLD 13:26 → 5E 13:26 → 4E 13:26 → 5E 16:36 → 4E 01-19 08:07
PROVIDERS: Internal Medicine; Internal Medicine Nephrology; Nurse Practitioner Family; ADMIT Emergency Medicine; ATTEND Emergency Medicine
DX: U07.1 COVID-19 (principal); N17.0 Acute kidney failure with tubular necrosis; J44.1 Chronic obstructive pulmonary disease with (acute) exacerbation; E87.0 Hyperosmolality and hypernatremia; N18.4 Chronic kidney disease, stage 4 (severe); I50.42 Chronic combined systolic (congestive) and diastolic (congestive) heart failure; I13.0 Hypertensive heart and chronic kidney disease with heart failure and stage 1 through stage 4 chronic kidney disease, or unspecified chronic kidney disease; E87.5 Hyperkalemia; D53.9 Nutritional anemia, unspecified; I48.91 Unspecified atrial fibrillation; E87.8 Other disorders of electrolyte and fluid balance, not elsewhere classified; E11.65 Type 2 diabetes mellitus with hyperglycemia; I25.10 Atherosclerotic heart disease of native coronary artery without angina pectoris; G89.29 Other chronic pain; M54.9 Dorsalgia, unspecified; E11.22 Type 2 diabetes mellitus with diabetic chronic kidney disease; D69.6 Thrombocytopenia, unspecified; E83.41 Hypermagnesemia; M89.9 Disorder of bone, unspecified; R33.9 Retention of urine, unspecified; S51.011A Laceration without foreign body of right elbow, initial encounter; X58.XXXA Exposure to other specified factors, initial encounter; Y93.89 Activity, other specified; Y92.89 Other specified places as the place of occurrence of the external cause; Y99.8 Other external cause status; Z79.4 Long term (current) use of insulin; Z88.1 Allergy status to other antibiotic agents; Z88.8 Allergy status to other drugs, medicaments and biological substances; Z82.49 Family history of ischemic heart disease and other diseases of the circulatory system; Z83.3 Family history of diabetes mellitus; Z87.442 Personal history of urinary calculi; I25.2 Old myocardial infarction; Z87.891 Personal history of nicotine dependence

== ENCOUNTER 2021-01-30 12:43 | Inpatient (IN) | payer OTHER ==
[~2021-01-30] VITALS: Ht 185.4 cm; Wt 129.9 kg
[~2021-01-30 12:43] MED LIST changes: +ALLOPURINOL100 MG PO; +DECADRON6 M1 PO; +ELIQUIS2.5 M1 PO; +LISINOPRIL20 MG PO; +PROTONIX IV40 MG IV; +ZETIA10 MG PO
[2021-01-30 13:07] VITALS: BP 102/60
[2021-01-30 13:47] LABS: HEMATOCRIT 38.2 % (42.0-52.0); MEAN CELL VOLUME 92.9 fl (80.0-94.0); MEAN CORPUSCULAR HGB 27.5 pg (27.0-31.0); MEAN CORPUSCULAR HGB CONC 29.6 g/dl (33.0-37.0); MEAN PLATELET VOLUME 11.9 fl (9.6-12.3); NUCLEATED RED BLOOD CELL 0.1 10*3/uL (0.0-0.0); NUCLEATED RED BLOOD CELL 0.8 % (0.0-0.0); PLATELET COUNT AUTOMATED 236 10*3/uL (130-400); RED BLOOD COUNT 4.11 10*6/uL (4.50-5.90); RED CELL DISTRI WIDTH 16.2 % (0-14.5)
[2021-01-30 14:00] VITALS: BP 109/47
[2021-01-30 14:02] LABS: ALBUMIN 2.4 gm/dl (3.1-4.5); CREATININE 2.09 mg/dL (0.70-1.30); POTASSIUM 4.6 mmol/L (3.5-5.1); TOTAL PROTEIN 6.8 gm/dL (6.4-8.2)
[2021-01-30 14:03] LABS: TROPONIN I 0.043 ng/ml (<0.045)
[2021-01-30 14:05] LABS: BURR CELLS FEW; PLATELET SUFFICIENCY NORMAL (NORMAL); TOTAL CELLS COUNTED 100 #CELLS
[2021-01-30 15:00] VITALS: BP 126/72
[2021-01-30 16:00] VITALS: BP 100/71
[2021-01-30 17:00] VITALS: BP 123/69
[2021-01-30 18:00] VITALS: BP 133/54
[2021-01-30 18:07] LABS: ABG BASE EXCESS 2.4 mmol/L (-2.0-2.0); ARTERIAL BLOOD GAS PH 7.432 (7.35-7.45); ARTERIAL BLOOD GAS PO2 62.2 (80-90)
[2021-01-31] VITALS: BP 132/78
[2021-01-31 04:00] VITALS: BP 119/64
[2021-01-31 05:57] LABS: HEMATOCRIT 34.9 % (42.0-52.0); MEAN CELL VOLUME 92.3 fl (80.0-94.0); MEAN CORPUSCULAR HGB 27.8 pg (27.0-31.0); MEAN CORPUSCULAR HGB CONC 30.1 g/dl (33.0-37.0); PLATELET COUNT AUTOMATED 206 10*3/uL (130-400); RED BLOOD COUNT 3.78 10*6/uL (4.50-5.90); RED CELL DISTRI WIDTH 16.1 % (0-14.5); WHITE BLOOD COUNT 10.7 10*3/uL (4.8-10.8)
[2021-01-31 05:59] LABS: ALBUMIN 2.2 gm/dl (3.1-4.5); CREATININE 2.01 mg/dL (0.70-1.30); POTASSIUM 4.6 mmol/L (3.5-5.1); TOTAL PROTEIN 6.3 gm/dL (6.4-8.2)
[2021-01-31 06:17] LABS: ACT PARTIAL THROMBO TIME 27.4 SECONDS (20.0-32.1); INTERNATIONAL NORM RATIO 1.1 (2.0-3.5)
[2021-01-31 07:39] LABS: PLATELET SUFFICIENCY NORMAL (NORMAL); POLYCHROMASIA SLIGHT; TOTAL CELLS COUNTED 100 #CELLS
[2021-01-31 08:00] VITALS: BP 109/47
[2021-01-31 09:32] LABS: ABG BASE EXCESS 1.1 mmol/L (-2.0-2.0); ARTERIAL BLOOD GAS PH 7.396 (7.35-7.45); ARTERIAL BLOOD GAS PO2 61.2 (80-90)
[2021-01-31 12:00] VITALS: BP 119/61
[2021-01-31 16:00] VITALS: BP 130/61
[2021-01-31 20:00] VITALS: BP 117/66
[2021-02-01] VITALS: BP 126/73
[2021-02-01 04:00] VITALS: BP 113/47
[2021-02-01 06:03] LABS: CREATININE 2.05 mg/dL (0.70-1.30)
[2021-02-01 06:04] LABS: POTASSIUM 4.8 mmol/L (3.5-5.1)
[2021-02-01 06:16] LABS: HEMATOCRIT 35.3 % (42.0-52.0); MEAN CELL VOLUME 91.2 fl (80.0-94.0); MEAN CORPUSCULAR HGB 27.4 pg (27.0-31.0); MEAN PLATELET VOLUME 12.5 fl (9.6-12.3); NUCLEATED RED BLOOD CELL 0.2 % (0.0-0.0); PLATELET COUNT AUTOMATED 211 10*3/uL (130-400); RED BLOOD COUNT 3.87 10*6/uL (4.50-5.90); RED CELL DISTRI WIDTH 15.9 % (0-14.5)
[2021-02-01 06:46] LABS: OVALOCYTES FEW; PLATELET SUFFICIENCY NORMAL (NORMAL); POLYCHROMASIA SLIGHT; TOTAL CELLS COUNTED 100 #CELLS
[2021-02-01 08:00] VITALS: BP 126/68
[2021-02-01 12:00] VITALS: BP 133/72
[2021-02-01 15:36] LABS: ABG BASE EXCESS -1.8 mmol/L (-2.0-2.0); ARTERIAL BLOOD GAS PH 7.395 (7.35-7.45); ARTERIAL BLOOD GAS PO2 58.1 (80-90)
[2021-02-01 16:00] VITALS: BP 112/60
[2021-02-01 20:00] VITALS: BP 125/58
[2021-02-02] VITALS: BP 129/69
[2021-02-02 04:00] VITALS: BP 142/68
[2021-02-02 06:01] LABS: CREATININE 2.16 mg/dL (0.70-1.30)
[2021-02-02 06:02] LABS: HEMATOCRIT 34.9 % (42.0-52.0); MEAN CELL VOLUME 91.6 fl (80.0-94.0); MEAN CORPUSCULAR HGB 27.3 pg (27.0-31.0); MEAN CORPUSCULAR HGB CONC 29.8 g/dl (33.0-37.0); MEAN PLATELET VOLUME 11.5 fl (9.6-12.3); PLATELET COUNT AUTOMATED 206 10*3/uL (130-400); RED BLOOD COUNT 3.81 10*6/uL (4.50-5.90); RED CELL DISTRI WIDTH 15.7 % (0-14.5); WHITE BLOOD COUNT 11.2 10*3/uL (4.8-10.8)
[2021-02-02 06:03] LABS: POTASSIUM 4.8 mmol/L (3.5-5.1)
[2021-02-02 06:31] LABS: TOTAL CELLS COUNTED 100 #CELLS
[2021-02-02 06:32] LABS: BURR CELLS FEW; OVALOCYTES FEW; PLATELET SUFFICIENCY NORMAL (NORMAL); POLYCHROMASIA SLIGHT
[2021-02-02 08:00] VITALS: BP 124/64
[2021-02-02 08:35] LABS: ABG BASE EXCESS 0.2 mmol/L (-2.0-2.0); ARTERIAL BLOOD GAS PH 7.396 (7.35-7.45); ARTERIAL BLOOD GAS PO2 57.4 (80-90)
[2021-02-02 12:00] VITALS: BP 125/63
[2021-02-02 16:00] VITALS: BP 128/74
[2021-02-02 20:00] VITALS: BP 127/75
[2021-02-03] VITALS: BP 129/76
[2021-02-03 04:00] VITALS: BP 134/71
[2021-02-03 08:00] VITALS: BP 133/68
[2021-02-03 08:18] LABS: ABG BASE EXCESS 2.5 mmol/L (-2.0-2.0); ARTERIAL BLOOD GAS PH 7.408 (7.35-7.45); ARTERIAL BLOOD GAS PO2 55.6 (80-90)
[2021-02-03 09:30] LABS: HEMATOCRIT 34.4 % (42.0-52.0); MEAN CELL VOLUME 90.1 fl (80.0-94.0); MEAN CORPUSCULAR HGB 27.2 pg (27.0-31.0); MEAN CORPUSCULAR HGB CONC 30.2 g/dl (33.0-37.0); MEAN PLATELET VOLUME 11.3 fl (9.6-12.3); PLATELET COUNT AUTOMATED 196 10*3/uL (130-400); RED BLOOD COUNT 3.82 10*6/uL (4.50-5.90); RED CELL DISTRI WIDTH 15.4 % (0-14.5); WHITE BLOOD COUNT 8.3 10*3/uL (4.8-10.8)
[2021-02-03 09:46] LABS: ALBUMIN 2.2 gm/dl (3.1-4.5); CREATININE 2.15 mg/dL (0.70-1.30); POTASSIUM 4.2 mmol/L (3.5-5.1); TOTAL PROTEIN 6.2 gm/dL (6.4-8.2)
[2021-02-03 09:57] LABS: OVALOCYTES FEW; PLATELET SUFFICIENCY NORMAL (NORMAL); POLYCHROMASIA SLIGHT; TOTAL CELLS COUNTED 100 #CELLS
[2021-02-03 12:00] VITALS: BP 133/68
[2021-02-03 16:00] VITALS: BP 93/51
[2021-02-03 16:53] LABS: ABG BASE EXCESS 1.3 mmol/L (-2.0-2.0); ARTERIAL BLOOD GAS PH 7.352 (7.35-7.45); ARTERIAL BLOOD GAS PO2 67.9 (80-90)
[2021-02-03 20:00] VITALS: BP 94/63
[2021-02-03 21:37] LABS: ABG BASE EXCESS 2.7 mmol/L (-2.0-2.0); ARTERIAL BLOOD GAS PH 7.427 (7.35-7.45); ARTERIAL BLOOD GAS PO2 122.9 (80-90)
[2021-02-04] VITALS (7 sets, daily range): BP systolic 100–122; BP diastolic 47–86
[2021-02-04 06:06] LABS: CREATININE 2.22 mg/dL (0.70-1.30); POTASSIUM 4.3 mmol/L (3.5-5.1)
[2021-02-04 06:25] LABS: HEMATOCRIT 33.9 % (42.0-52.0); MEAN CELL VOLUME 89.9 fl (80.0-94.0); MEAN CORPUSCULAR HGB 27.1 pg (27.0-31.0); MEAN CORPUSCULAR HGB CONC 30.1 g/dl (33.0-37.0); MEAN PLATELET VOLUME 11.9 fl (9.6-12.3); PLATELET COUNT AUTOMATED 180 10*3/uL (130-400); RED BLOOD COUNT 3.77 10*6/uL (4.50-5.90); RED CELL DISTRI WIDTH 15.4 % (0-14.5)
[2021-02-04 07:33] LABS: TOTAL CELLS COUNTED 100 #CELLS
[2021-02-04 07:34] LABS: OVALOCYTES FEW
[2021-02-04 07:35] LABS: PLATELET SUFFICIENCY NORMAL (NORMAL)
[2021-02-04 08:33] LABS: ABG BASE EXCESS 1.7 mmol/L (-2.0-2.0); ARTERIAL BLOOD GAS PH 7.41 (7.35-7.45); ARTERIAL BLOOD GAS PO2 76.1 (80-90)
[2021-02-04 11:59] LABS: ABG BASE EXCESS -0.3 mmol/L (-2.0-2.0); ARTERIAL BLOOD GAS PH 7.338 (7.35-7.45); ARTERIAL BLOOD GAS PO2 61.4 (80-90)
[2021-02-04 17:06] LABS: ABG BASE EXCESS -0.5 mmol/L (-2.0-2.0); ARTERIAL BLOOD GAS PH 7.287 (7.35-7.45); ARTERIAL BLOOD GAS PO2 58.6 (80-90)
[2021-02-04 19:43] LABS: ABG BASE EXCESS -1.4 mmol/L (-2.0-2.0); ARTERIAL BLOOD GAS PH 7.335 (7.35-7.45); ARTERIAL BLOOD GAS PO2 60.7 (80-90)
[2021-02-05] VITALS (36 sets, daily range): BP systolic 79–130; BP diastolic 46–589
[2021-02-05 01:18] LABS: ABG BASE EXCESS 0.4 mmol/L (-2.0-2.0); ARTERIAL BLOOD GAS PH 7.341 (7.35-7.45)
[2021-02-05 05:33] LABS: CREATININE 2.74 mg/dL (0.70-1.30); POTASSIUM 4.7 mmol/L (3.5-5.1)
[2021-02-05 06:18] LABS: HEMATOCRIT 37.3 % (42.0-52.0); MEAN CELL VOLUME 91.9 fl (80.0-94.0); MEAN CORPUSCULAR HGB 27.1 pg (27.0-31.0); MEAN CORPUSCULAR HGB CONC 29.5 g/dl (33.0-37.0); MEAN PLATELET VOLUME 12.3 fl (9.6-12.3); PLATELET COUNT AUTOMATED 166 10*3/uL (130-400); RED BLOOD COUNT 4.06 10*6/uL (4.50-5.90); RED CELL DISTRI WIDTH 15.5 % (0-14.5); WHITE BLOOD COUNT 8.7 10*3/uL (4.8-10.8)
[2021-02-05 07:04] LABS: BURR CELLS FEW; OVALOCYTES FEW; PLATELET SUFFICIENCY NORMAL (NORMAL); TOTAL CELLS COUNTED 100 #CELLS
[2021-02-05 08:11] LABS: ABG BASE EXCESS -1.9 mmol/L (-2.0-2.0); ARTERIAL BLOOD GAS PH 7.357 (7.35-7.45); ARTERIAL BLOOD GAS PO2 90.5 (80-90)
[2021-02-05 11:16] LABS: ABG BASE EXCESS -2.1 mmol/L (-2.0-2.0); ARTERIAL BLOOD GAS PH 7.321 (7.35-7.45); ARTERIAL BLOOD GAS PO2 62.6 (80-90)
[2021-02-05 16:48] LABS: ABG BASE EXCESS -3.2 mmol/L (-2.0-2.0); ARTERIAL BLOOD GAS PH 7.246 (7.35-7.45); ARTERIAL BLOOD GAS PO2 63.8 (80-90)
[2021-02-05 20:34] LABS: ABG BASE EXCESS -5.1 mmol/L (-2.0-2.0); ARTERIAL BLOOD GAS PH 7.238 (7.35-7.45); ARTERIAL BLOOD GAS PO2 85.5 (80-90)
[2021-02-06] VITALS (55 sets, daily range): BP systolic 96–121; BP diastolic 51–65
[2021-02-06 06:36] LABS: HEMATOCRIT 37.6 % (42.0-52.0); MEAN CELL VOLUME 93.1 fl (80.0-94.0); MEAN CORPUSCULAR HGB 27.5 pg (27.0-31.0); MEAN CORPUSCULAR HGB CONC 29.5 g/dl (33.0-37.0); MEAN PLATELET VOLUME 12.1 fl (9.6-12.3); NUCLEATED RED BLOOD CELL 0.1 % (0.0-0.0); PLATELET COUNT AUTOMATED 176 10*3/uL (130-400); RED BLOOD COUNT 4.04 10*6/uL (4.50-5.90); RED CELL DISTRI WIDTH 15.9 % (0-14.5)
[2021-02-06 06:56] LABS: ALBUMIN 2.2 gm/dl (3.1-4.5); CREATININE 2.92 mg/dL (0.70-1.30); POTASSIUM 4.8 mmol/L (3.5-5.1); TOTAL PROTEIN 6.3 gm/dL (6.4-8.2)
[2021-02-06 07:59] LABS: BURR CELLS FEW; OVALOCYTES FEW; PLATELET SUFFICIENCY NORMAL (NORMAL); TOTAL CELLS COUNTED 100 #CELLS
[2021-02-06 08:20] LABS: ABG BASE EXCESS -2.3 mmol/L (-2.0-2.0); ARTERIAL BLOOD GAS PH 7.27 (7.35-7.45); ARTERIAL BLOOD GAS PO2 75.3 (80-90)
== END 2021-02-06 14:30 | disposition short-term general hospital (02) | DRG 208 ==
LOC: ED 12:43 → ICCU 16:07 → 4E 16:07 → EDHOLD 16:07 → 4E 17:45 → ICCU 21:16
PROVIDERS: Emergency Medicine; Hospitalist; Internal Medicine; Internal Medicine Critical Care Medicine; ADMIT Student in an Organized Health Care Education/Training Program; ATTEND Student in an Organized Health Care Education/Training Program
PROC: 5A09357 Assistance with Respiratory Ventilation, Less than 24 Consecutive Hours, Continuous Positive Airway Pressure (ICD-10-PCS; 2021-01-31)
PROC: 5A0935A Assistance with Respiratory Ventilation, Less than 24 Consecutive Hours, High Flow/Velocity Cannula (ICD-10-PCS; 2021-01-31)
PROC: 5A09357 Assistance with Respiratory Ventilation, Less than 24 Consecutive Hours, Continuous Positive Airway Pressure (ICD-10-PCS; 2021-02-01)
PROC: 5A09357 Assistance with Respiratory Ventilation, Less than 24 Consecutive Hours, Continuous Positive Airway Pressure (ICD-10-PCS; 2021-02-02)
PROC: 0BH18EZ Insertion of Endotracheal Airway into Trachea, Via Natural or Artificial Opening Endoscopic (ICD-10-PCS; principal; 2021-02-03)
PROC: 03HB33Z Insertion of Infusion Device into Right Radial Artery, Percutaneous Approach (ICD-10-PCS; 2021-02-03)
PROC: B34HZZZ Ultrasonography of Right Upper Extremity Arteries (ICD-10-PCS; 2021-02-03)
PROC: 02HV33Z Insertion of Infusion Device into Superior Vena Cava, Percutaneous Approach (ICD-10-PCS; 2021-02-03)
PROC: B548ZZA Ultrasonography of Superior Vena Cava, Guidance (ICD-10-PCS; 2021-02-03)
PROC: 5A09357 Assistance with Respiratory Ventilation, Less than 24 Consecutive Hours, Continuous Positive Airway Pressure (ICD-10-PCS; 2021-02-03)
PROC: 5A1945Z Respiratory Ventilation, 24-96 Consecutive Hours (ICD-10-PCS; 2021-02-04)
DX: U07.1 COVID-19 (principal); A41.9 Sepsis, unspecified organism; J18.9 Pneumonia, unspecified organism; N17.0 Acute kidney failure with tubular necrosis; I50.33 Acute on chronic diastolic (congestive) heart failure; J96.01 Acute respiratory failure with hypoxia; R65.20 Severe sepsis without septic shock; I13.0 Hypertensive heart and chronic kidney disease with heart failure and stage 1 through stage 4 chronic kidney disease, or unspecified chronic kidney disease; N18.4 Chronic kidney disease, stage 4 (severe); J44.1 Chronic obstructive pulmonary disease with (acute) exacerbation; J44.0 Chronic obstructive pulmonary disease with (acute) lower respiratory infection; D68.59 Other primary thrombophilia; E87.1 Hypo-osmolality and hyponatremia; D53.9 Nutritional anemia, unspecified; I25.10 Atherosclerotic heart disease of native coronary artery without angina pectoris; N40.0 Benign prostatic hyperplasia without lower urinary tract symptoms; E11.65 Type 2 diabetes mellitus with hyperglycemia; I48.91 Unspecified atrial fibrillation; E11.22 Type 2 diabetes mellitus with diabetic chronic kidney disease; E87.5 Hyperkalemia; E55.9 Vitamin D deficiency, unspecified; E66.01 Morbid (severe) obesity due to excess calories; Z79.4 Long term (current) use of insulin; Z68.38 Body mass index [BMI] 38.0-38.9, adult; Z79.01 Long term (current) use of anticoagulants; Z88.1 Allergy status to other antibiotic agents; Z88.8 Allergy status to other drugs, medicaments and biological substances; Z87.891 Personal history of nicotine dependence; Z82.49 Family history of ischemic heart disease and other diseases of the circulatory system; Z83.3 Family history of diabetes mellitus; Z79.899 Other long term (current) drug therapy